=== PATIENT | female | born 1950 | race Caucasian/White ===

== ENCOUNTER 2020-12-17 08:13 | Outpatient (CLI) | payer MEDICARE, SELFPAY ==
--- NOTE | ~2020-12-17 | US_ITS ---
EXAMINATION: US venous doppler LE RT EXAM DATE: 12/17/2020 08:50 INDICATION: chronic venous disease vs pelvic outflow obstruct. TECHNIQUE: Multiple grayscale, color flow and Doppler images of the right lower extremity deep venous system were obtained and reviewed. There is no prior study for comparison. FINDINGS: The right common femoral, femoral and profunda veins demonstrate normal color flow, respira tory variation, augmentation and compressibility. Compressibility, color flow confirmed within the r ight popliteal, posterior tibial, peroneal, and greater saphenous veins. IMPRESSION: 1. No right lower extremity deep venous thrombosis. Reviewed, dictated and finalized at location A.
[2020-12-17 08:26] LABS: Basophils Absolute Auto 0.04 K/mm3 (0.00-0.10); Basophils Percent Auto 0.7 % (0.0-1.0); Eosinophils Percent Auto 1.8 % (1.0-6.0); Hematocrit 39.6 % (35.0-42.0); Hemoglobin 12.7 g/dL (11.7-13.8); Immature Granulocyte Absolute 0.04 K/mm3 (0.00-0.00); Immature Granulocyte Percent A 0.7 % (0.0-0.0); Lymphocytes Absolute Auto 1.18 K/mm3 (1.10-4.50); Lymphocytes Percent Auto 20.7 % (18.0-42.0); Mean Corpuscular HGB Conc 32.1 g/dL (32.0-36.0); Mean Corpuscular Hemoglobin 28.6 pg (27.0-31.0); Mean Corpuscular Volume 89.2 fL (78.0-102.0); Mean Platelet Volume 10.1 fl (9.2-11.8); Monocytes Absolute Auto 0.36 K/mm3 (0.10-0.90); Monocytes Percent Auto 6.3 % (2.0-11.0); Neutrophils Percent Auto 69.8 % (50.0-70.0); Platelet Count Result 246 K/mm3 (150-420); Red Blood Count 4.44 M/mm3 (4.20-5.40); Red Cell Distribution Width 13.5 % (11.6-14.4); White Blood Count 5.7 K/mm3 (4.8-10.8)
[2020-12-17 09:14] LABS: Alanine Aminotransferase 23 U/L (14-59); Albumin Level 3.6 g/dL (3.4-5.0); Alkaline Phosphatase 100 U/L (46-116); Anion Gap 7 mmol/L (8-16); Aspartate Amino Transferase 17 U/L (15-37); Bilirubin,Total 0.4 mg/dL (0.00-1.00); Blood Urea Nitrogen 25 mg/dL (7-18); Calcium 8.7 mg/dL (8.5-10.1); Carbon Dioxide 32 mmol/L (21-32); Chloride 105 mmol/L (98-108); Cholesterol 198 mg/dL (0-200); Estimated Glomerular Filt Rate 36; Glucose 112 mg/dL (70-99); HDL Direct 41 mg/dL (40-60); LDL Cholesterol Calculated 136 mg/dL (<130); Osmolality Calculated 303 mOsm/kg (285-295); Potassium 3.9 mmol/L (3.5-5.1); Sodium 144 mmol/L (136-145); Triglycerides 105 mg/dL (0-150)
[2020-12-18 13:48] LABS: Hemoglobin A1C 5.9 % (<5.7)
== END 2020-12-17 08:14 | disposition home or self-care (01) ==
LOC: CHSIMG 08:15
PROVIDERS: PCP Family Medicine; Visit Provider Nurse Practitioner Family
DX: R60.0 Localized edema (principal); I10 Essential (primary) hypertension
CPT/HCPCS: 36415; 80053; 80061; 83036; 85025; 93971

== ENCOUNTER 2021-01-19 10:42 | Outpatient (CLI) | payer MEDICARE, SELFPAY ==
[2021-01-19 11:20] LABS: Alanine Aminotransferase 13 U/L (14-59); Albumin Level 3.9 g/dL (3.4-5.0); Alkaline Phosphatase 89 U/L (46-116); Anion Gap 12 mmol/L (8-16); Aspartate Amino Transferase 11 U/L (15-37); Bilirubin,Total 0.6 mg/dL (0.00-1.00); Blood Urea Nitrogen 15 mg/dL (7-18); Carbon Dioxide 28 mmol/L (21-32); Chloride 103 mmol/L (98-108); Estimated Glomerular Filt Rate 49; Glucose 105 mg/dL (70-99); Osmolality Calculated 296 mOsm/kg (285-295); Potassium 3.7 mmol/L (3.5-5.1); Sodium 143 mmol/L (136-145); Total Protein 7.6 g/dL (6.4-8.2)
== END 2021-01-19 10:43 | disposition home or self-care (01) ==
LOC: CHSLAB 10:44
PROVIDERS: PCP Family Medicine; Visit Provider Nurse Practitioner Family
DX: R60.0 Localized edema (principal)
CPT/HCPCS: 36415; 80053

== ENCOUNTER 2022-02-11 12:29 | Emergency (ER) | payer MEDICARE, SELFPAY ==
[2022-02-11 12:35] VITALS: BP 182/88; PULSE 71; RESP 16; TEMP 36.3; O2SAT 96
[2022-02-11 12:38] VITALS: BP 157/69; PULSE 65; RESP 19; TEMP 36.9; O2SAT 98
[2022-02-11 13:08] LABS: Basophils Absolute Auto 0.04 K/mm3 (0.00-0.10); Basophils Percent Auto 0.7 % (0.0-1.0); Eosinophils Absolute Auto 0.03 K/mm3 (0.02-0.50); Eosinophils Percent Auto 0.6 % (1.0-6.0); Hemoglobin 13.7 g/dL (11.7-13.8); Immature Granulocyte Absolute 0.02 K/mm3 (0.00-0.00); Immature Granulocyte Percent A 0.4 % (0.0-0.0); Lymphocytes Absolute Auto 1.05 K/mm3 (1.10-4.50); Lymphocytes Percent Auto 19.6 % (18.0-42.0); Mean Corpuscular HGB Conc 32.6 g/dL (32.0-36.0); Mean Corpuscular Hemoglobin 29.5 pg (27.0-31.0); Mean Corpuscular Volume 90.5 fL (78.0-102.0); Mean Platelet Volume 9.8 fl (9.2-11.8); Monocytes Absolute Auto 0.32 K/mm3 (0.10-0.90); Neutrophils Absolute Auto 3.9 K/mm3 (1.7-7.2); Neutrophils Percent Auto 72.7 % (50.0-70.0); Platelet Count Result 273 K/mm3 (150-420); Red Blood Count 4.64 M/mm3 (4.20-5.40); Red Cell Distribution Width 12.6 % (11.6-14.4); White Blood Count 5.4 K/mm3 (4.8-10.8)
[2022-02-11 13:15] VITALS: BP 155/80; PULSE 68; RESP 16; O2SAT 98
--- NOTE | 2022-02-11 13:21 | ED.GENADULT ---
HPI - General Adult General Chief complaint: Anxiety Stated complaint: Anxiety attack History of Present Illness HPI narrative: Ana is a 71F with a PMH of HTN and prediabetes presented to the ED with concerns of an episode of amnesia. She ahs been under a lot of stress lately. She has anxiety at baseline but has been under more stress because her dog is very ill. She went to work this morning but reportedly left and note and went home. She has no recollection of this event and her states that she was speaking hysterically during the episode. She has not ingested any substances, she denies head trauma, and there have been no fevers, chills, N/V+. Her loose stools are at baseline. Related Data Allergies Allergy/AdvReac Type Severity Reaction Status Date / Time No Known Allergies Allergy Verified 02/11/22 12:46 Review of Systems Review of Systems: All systems reviewed & are unremarkable except as noted in HPI and below PMFSH Past Medical History Medical History Bitten by dog, subsequent encounter Bronchitis Colon cancer Uterus cancer Surgical History Surgical History History of colon resection Hx of cholecystectomy Knee joint replacement status Status post complete hysterectomy Family History Family History Mother , mother of old age in her 90s. She did have heart disease. No problems noted. 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[place], [place] Exam Const: General: healthy appearing, no acute distress and alert; No confusion Nutritional Appearance: well nourished Orientation/consciousness: patient oriented x3 Limitations: no limitations HENMT: Head: normal to inspection Ears: external ears normal General nose exam: Normal external nose present Face and sinus: normal facial exam Mouth: Yes Normal oral and palatal mucosa present Eyes: Conjunctivae: conjunctivae normal Pupils: Equal, round and reactive pupils present EOM: EOMs intact bilaterally Neck: Neck: normal visual inspection Chest: Chest palpation & inspection: normal inspection of the chest Resp: Effort & Inspection: normal respiratory effort Auscultation: clear to auscultation bilaterally Cardio: Rate: regular rate Rhythm: regular rhythm Skin: General skin exam: normal color Rashes: no rashes Wounds: no wounds Neuro: General: patient oriented x3 Cranial nerves: Yes Nystagmus not present Extrem: General: normal to inspection Psych: Mental Status: mental status grossly normal Course Course Emergency Course: At the time of reevaluation she had calmed down and remembered more events. As she was otherwise asymptomatic and the events came on after an episode of stress related to her dog being sick it is likely psych in nature. Vital Signs Vital signs: Vital Signs Temperature 97.4 F L 02/11/22 12:35 Pulse Rate 71 02/11/22 12:35 Respiratory Rate 16 02/11/22 12:35 Blood Pressure 182/88 H 02/11/22 12:35 Pulse Oximetry 96 02/11/22 12:35 Oxygen Delivery Room Air 02/11/22 12:35 Temperature 98.4 F 02/11/22 12:38 Pulse Rate 65 02/11/22 12:38 Respiratory Rate 19 02/11/22 12:38 Blood Pressure 157/69 H 02/11/22 12:38 Pulse Oximetry 98 02/11/22 12:38 Oxygen Delivery Room Air 02/11/22 12:38 Medical Decision Making Vital Signs Vital Signs: Vital Signs Temperature 97.4 F L 02/11/22 12:35 Pulse Rate 71 02/11/22 12:35 Respiratory Rate 16 02/11/22 12:35 Blood Pressure 182/88 H 02/11/22 12:35 Pulse Oximetry 96 02/11/22 12:35 Oxygen Delivery Room Air 02/11/22 12:35 Temperature 98.4 F 02/11/22
[2022-02-11 13:24] LABS: Alanine Aminotransferase 18 U/L (14-59); Albumin Level 3.8 g/dL (3.4-5.0); Alkaline Phosphatase 109 U/L (46-116); Anion Gap 10 mmol/L (8-16); Aspartate Amino Transferase 12 U/L (15-37); Bilirubin,Total 0.6 mg/dL (0.00-1.00); Blood Urea Nitrogen 19 mg/dL (7-18); Carbon Dioxide 26 mmol/L (21-32); Chloride 107 mmol/L (98-108); Estimated CRCL calculation 43 ml/min; Estimated Glomerular Filt Rate 52; Ethanol < 3 mg/dL (0-6); Glucose 101 mg/dL (70-99); Osmolality Calculated 298 mOsm/kg (285-295); Potassium 3.8 mmol/L (3.5-5.1); Sodium 143 mmol/L (136-145); Total Protein 7.6 g/dL (6.4-8.2)
[2022-02-11] MEDS: LORazepam INJ (*CRX) 2 MG/ML VIAL 0.5 MG IM (13:30)
[2022-02-11 13:36] LABS: Amphetamine Screen Urine Negative (Negative); Barbiturate Screen Urine Negative (Negative); Benzodiazepines Screen Urine Negative (Negative); Cannabinoid Screen Urine Negative (Negative); Cocaine Screen Urine Negative (Negative); Methadone Screen Urine Negative (Negative); Opiate Screen Urine Negative (Negative); Phencyclidine Screen Urine Negative (Negative)
== END 2022-02-11 13:50 | disposition home or self-care (01) ==
PROVIDERS: Emergency Provider Family Medicine; PCP Nurse Practitioner Family
DX: G45.4 Transient global amnesia (principal); F41.0 Panic disorder [episodic paroxysmal anxiety]; I10 Essential (primary) hypertension; F41.9 Anxiety disorder, unspecified; Z85.038 Personal history of other malignant neoplasm of large intestine; Z85.42 Personal history of malignant neoplasm of other parts of uterus
CPT/HCPCS: 36415; 80053; 80307; 85025; 96372; 99283; J2060

== ENCOUNTER 2022-09-05 01:18 | Emergency (ER) | payer MEDICARE, SELFPAY ==
[2022-09-05] VITALS (20 sets, daily range): BP systolic 118–184; BP diastolic 55–96; PULSE 70–75; RESP 20; TEMP 36.6; O2SAT 87–97
--- NOTE | ~2022-09-05 | CT_ITS ---
CT Abdomen and Pelvis with contrast. History: Abdominal pain. Spiral CT of the abdomen and pelvis was performed after the administration of intravenous contrast. 1 00 cc of Omnipaque 350 was administered intravenously without complication. Dose reduction technique was used on this scan by utilizing automated exposure control and iterative reconstruction technique. The dose-length product (DLP) was 960.96 mGy-cm. COMPARISON: 11/23/2011 Findings: Scans through the lung bases demonstrate 3 mm nodule in the lingula. The liver, spleen, pancreas, adrenals and kidneys are within normal limits. Cholecystectomy clips pre sent. No evidence of aortic aneurysm. No lymphadenopathy is seen. Multiple bowel anastomoses are present. Small ventral fat-containing hernia present. There is a mildl y dilated small bowel loop in the pelvis with fecalization of contents, but no high-grade transition point clearly identified.. Images through the pelvis were performed. Urinary bladder unremarkable. Patient is post hysterectomy. No pelvic mass seen. Small amount of abdominopelvic ascites is seen. Impression: Single mildly dilated small bowel in the pelvis with fecalization of contents, but no high-grade jones sition point. Early or partial small bowel obstruction is a potential consideration. Clinical correla tion required. Small amount of abdominopelvic ascites and mild mesenteric edema, nonspecific. 3 mm lingular pulmonary nodule. According to Fleischner Society criteria, no further follow-up requir ed for a low-risk patient. For a high-risk patient, consider 12 month follow-up CT. Reviewed, dictated and finalized at [facility]. [employer] Impression: Single mildly dilated small bowel in the pelvis with fecalization of contents, but no high-grade transition point. Early or partial small bowel obstruction is a potential consideration. Clinical correlation required. Small amount of abdominopelvic ascites and mild mesenteric edema, nonspecific. 3 mm lingular pulmonary nodule. According to Fleischner Society criteria, no fu rther follow-up required for a low-risk patient. For a high-risk patient, consi dago 12 month follow-up CT.
--- NOTE | 2022-09-05 01:22 | ED.ABDPAIN ---
HPI - Abdominal Pain General Chief Complaint: Abdominal Pain Stated Complaint: Abdominal Pain Time Seen by Provider: 09/05/22 01:22 Source: patient and RN notes reviewed Mode of arrival: ambulatory Limitations: no limitations History of Present Illness MD elicited complaint: abdominal pain Pertinent past history: other ( Bowel obstruction) Onset (ago): hour(s) (4) Pain Consistency: constant Location: LUQ and RUQ Severity: severe Quality: cramping, stabbing and sharp Radiation: none Migration to: no migration Exacerbating factors: nothing Relieving factors: nothing Associated symptoms: nausea and vomiting Related Data Allergies Allergy/AdvReac Type Severity Reaction Status Date / Time No Known Allergies Allergy Verified 09/05/22 10:45 Review of Systems Review of Systems: All systems reviewed & are unremarkable except as noted in HPI and below Constitutional: Constitutional: Denies chills and Denies fever(s) Gastrointestinal: Gastrointestinal: Reports constipation and Denies diarrhea PMFSH Past Medical History Medical History Anxiety and depression Chronic kidney disease, stage 3a Baseline creatinine 1.04 Claustrophobia Colon cancer (~2011) Rectal cancer Essential hypertension History of small bowel obstruction Obstructive sleep apnea Panic attacks Peripheral neuropathy due to chemotherapy Pre-diabetes Uterus cancer (~2006) Treated with radiation therapy that subsequently caused developing colon cancer in 2011 Surgical History Surgical History History of colon resection (~2011) Low anterior resection of the colorectum with ileostomy with subsequent takedown 2012 History of insertion of tunneled central venous catheter (CVC) with port (~2011) Left subclavian History of reversal of ileostomy (~2011) History of total abdominal hysterectomy for endometrial cancer History of tubal ligation (~1972) Hx of cholecystectomy (~1994) Knee joint replacement status (~2014) Complicated by MSSA infection Family History Family History Mother Dementia Age older than 85 years Father Diabetes mellitus Coronary artery disease Social History Social History Social History: Patient is . She had 2 children. 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 Spiritual care concerns: No Exam Const: General: no acute distress, alert and ill appearing acutely Nutritional Appearance: well nourished and obese centrally obese Orientation/consciousness: patient oriented x3 Limitations: no limitations HENMT: Head: normal to inspection Ears: external ears normal Eyes: Conjunctivae: conjunctivae normal Pupils: Equal, round and reactive pupils present EOM: EOMs intact bilaterally Neck: Neck: normal visual inspection Resp: Effort & Inspection: normal respiratory effort Auscultation: clear to auscultation bilaterally Cardio: Rate: regular rate Rhythm: regular rhythm GI: GI Palp: Yes Soft to palpation, Yes Tenderness to palpation present (GI) ( severe upper abdomen), Yes Guarding due to palpation present (GI) ( moderate upper abdomen) and No Rebound tenderness present Auscultation: Hyperactive bowel sounds present Back/Spine/Pelvis: Cervical Spine: cervical ROM normal
[2022-09-05] MEDS: ONDANSETRON INJ 4 MG/2 ML VIAL IV PUSH (01:44)
[2022-09-05 02:15] LABS: Basophils Absolute Auto 0.03 K/mm3 (0.00-0.10); Basophils Percent Auto 0.4 % (0.0-1.0); Eosinophils Absolute Auto 0.04 K/mm3 (0.02-0.50); Eosinophils Percent Auto 0.6 % (1.0-6.0); Hematocrit 40.4 % (35.0-42.0); Hemoglobin 13.1 g/dL (11.7-13.8); Immature Granulocyte Absolute 0.03 K/mm3 (0.00-0.00); Immature Granulocyte Percent A 0.4 % (0.0-0.0); Lymphocytes Absolute Auto 0.63 K/mm3 (1.10-4.50); Lymphocytes Percent Auto 9.1 % (18.0-42.0); Mean Corpuscular HGB Conc 32.4 g/dL (32.0-36.0); Mean Corpuscular Volume 89.4 fL (78.0-102.0); Mean Platelet Volume 10.7 fl (9.2-11.8); Monocytes Absolute Auto 0.27 K/mm3 (0.10-0.90); Monocytes Percent Auto 3.9 % (2.0-11.0); Neutrophils Percent Auto 85.6 % (50.0-70.0); Platelet Count Result 211 K/mm3 (150-420); Red Blood Count 4.52 M/mm3 (4.20-5.40); Red Cell Distribution Width 12.2 % (11.6-14.4)
[2022-09-05 02:36] LABS: Anion Gap 8 mmol/L (8-16); Blood Urea Nitrogen 14 mg/dL (7-18); Carbon Dioxide 28 mmol/L (21-32); Chloride 103 mmol/L (98-108); Potassium 3.4 mmol/L (3.5-5.1); Sodium 139 mmol/L (136-145)
[2022-09-05 02:37] LABS: Alanine Aminotransferase 17 U/L (14-59); Albumin Level 3.5 g/dL (3.4-5.0); Alkaline Phosphatase 90 U/L (46-116); Aspartate Amino Transferase 13 U/L (15-37); Calcium 8.2 mg/dL (8.5-10.1); Estimated CRCL calculation 45 ml/min; Estimated Glomerular Filt Rate 52; Glucose 147 mg/dL (70-99); Lipase 18 U/L (16-77); Osmolality Calculated 291 mOsm/kg (285-295); Total Protein 6.7 g/dL (6.4-8.2)
[2022-09-05 02:43] LABS: Lactic Acid Reflex 1.4 mmol/L (0.4-2.0)
[2022-09-05 03:10] LABS: Add Urine Microscopic? YES; Appearance Urine Clear (Clear); Bilirubin Urine Negative (Negative); Blood Urine Trace-Intact (Negative); Color Urine Light Yellow (Yellow); Glucose Urine UA Negative (Negative); Ketones Urine 3+ (Negative); Leukocyte Esterase Ur Negative LEU/UL (Negative); Nitrate Urine Negative (Negative); Protein Urine Negative (Negative); Specific Grav Ur 1.015 (1.010-1.020); Urobilinogen Urine 0.2 mg/dL (0.2-1.0); pH Urine 6.5 (5.0-8.0)
--- NOTE | 2022-09-05 03:10 | PC.NURSE ---
Pt resting, call gaytan at side, reports pain is much less, able to rest c eyes closed, awaiting CT report.
[2022-09-05 03:16] LABS: Mucus Urine Few /lpf; RBC Urine 0-2 /hpf (0-2); Squamous Epithelial Cell Urine Few /hpf (Few)
--- NOTE | 2022-09-05 04:00 | PC.NURSE ---
Pt awake, reports her pain is much worse again and she feels very nauseated. Call placed to Dr Jimenez for pain medication. Order obtained.
[2022-09-05] MEDS: HYDROmorphone HCL INJ (*CRX) 2 MG/ML VIAL 1 MG IV PUSH (04:13)
--- NOTE | 2022-09-05 04:19 | PC.NURSE ---
Report received, discussed results c pt. and POC to transfer. Pt wanting transfer to [place].
--- NOTE | 2022-09-05 05:17 | PC.NURSE ---
Discussed need for NG tube, pt refuses to have NG put down, states she has had it in past and unable to tolerate, and she reports it gives her anxiety. Pt reports no n/v at this time and refuses insert of NG tube.
[2022-09-05] MEDS: KCL 20 MEQ/SW 100 ML 100 ML 50 MEQ IVPB ×2 (05:33)
[2022-09-05] MEDS: DEXTROSE 5%/0.45% SOD CHL 1,000 ML 150 ML IV CONT (05:40)
--- NOTE | 2022-09-05 05:41 | PC.NURSE ---
Pt resting, IVF infusing as per order, pt has no pain at this time. VSS, room and bed assignment received.
[2022-09-05 05:53] LABS: SARS-CoV-2 Ag Negative (Negative)
--- NOTE | 2022-09-05 05:59 | PC.NURSE ---
Pt resting, no further c/o. Report given to KATY Queen at [facility]. EMS paged for transfer.
--- NOTE | 2022-09-05 06:09 | PC.NURSE ---
[facility] paged for transfer, awaiting EMS.
--- NOTE | 2022-09-05 06:30 | PC.NURSE ---
Report given to [facility] for pt transfer. Pt. loaded to cot s difficulty, remains stable and pain free at this time.
== END 2022-09-05 06:40 | disposition short-term general hospital (02) ==
PROVIDERS: Emergency Provider Emergency Medicine; PCP Family Medicine
DX: K56.699 Other intestinal obstruction unspecified as to partial versus complete obstruction (principal); E87.6 Hypokalemia; I12.9 Hypertensive chronic kidney disease with stage 1 through stage 4 chronic kidney disease, or unspecified chronic kidney disease; N18.31 Chronic kidney disease, stage 3a; Z85.038 Personal history of other malignant neoplasm of large intestine; Z20.822 Contact with and (suspected) exposure to COVID-19
CPT/HCPCS: 36415; 74177; 80053; 81001; 83605; 83690; 85025; 87426; 96365; 96375; 99285; C9803; J0131; J1170; J2405; J3480; Q9967

== ENCOUNTER 2022-09-05 07:13 | Observation (INO) | payer MEDICARE, SELFPAY ==
--- NOTE | ~2022-09-05 | XR_ITS ---
EXAMINATION: XR sm bowel follow through DATE: 09/05/2022 13:43 INDICATION: Small bowel obstruction. TECHNIQUE: Oral contrast was administered, and a time course of radiographs of the abdomen was obtain ed. Fluoroscopy of the small bowel was not performed. Fluoroscopy exposure time was 0 minutes. The to ren number of images was 6. COMPARISON: CT abdomen and pelvis 09/05/2022 FINDINGS: There are surgical clips in the abdomen and pelvis. There are no dilated loops of bowel. Transit time from the stomach to proximal colon was approximately 1 hour. IMPRESSION: 1. Normal bowel gas pattern. Reviewed, dictated and finalized at location A. [employer]
[2022-09-05] MEDS: SODIUM CHLORIDE 0.9% IV 1,000 ML 100 ML IV CONT ×2 (07:53→21:22)
[2022-09-05 08:00] VITALS: BP 114/64; PULSE 63; RESP 16; TEMP 36.5; O2SAT 96
--- NOTE | 2022-09-05 10:18 | PM.CNGS ---
Assessment and Plan Assessment and plan (1) Small bowel obstruction: Code(s): K56.609 - Unspecified intestinal obstruction, unspecified as to partial versus complete obstruction Status: Acute Assessment and Plan: CT scan from [place] reviewed and discussed with the patient in detail. There is evidence of early versus partial small bowel obstruction. She does have a history of multiple abdominal surgeries and at least 3-4 previous small bowel obstructions. This is likely related to intraabdominal adhesions. She is already clinically improving and her abdominal exam is benign. She has refused an NG tube, but is currently not having any nausea or vomiting. Will get a water soluble small bowel follow through to further evaluate the small bowel obstruction. While awaiting SBFT, will keep her NPO with IV fluids and IV analgesics as needed. (2) HTN (hypertension): Code(s): I10 - Essential (primary) hypertension Status: Acute (3) Panic attacks: Code(s): F41.0 - Panic disorder [episodic paroxysmal anxiety] Status: Acute Assessment and Plan: Takes PRN Ativan at home. Has a hx of panic attacks when admitted due to NG tube placement and is refusing NG. Will add PRN Ativan IV while NPO. (4) Chronic kidney disease, stage 3a: Code(s): N18.31 - Chronic kidney disease, stage 3a Status: Acute (5) History of small bowel obstruction: Code(s): Z87.19 - Personal history of other diseases of the digestive system Status: Acute Assessment and Plan: Multiple previous small bowel obstructions that were treated successfully with conservative management. Plan I have discussed the patient's case and plan of care with Dr. Martinez. Thank you for allowing us to see the patient in consultation and we will continue to follow along with you. History of Present Illness Consult details Consult date: 09/05/22 Reason for consult: other (Small bowel obstruction) Requesting physician: Ivonne Randle DO Narrative: This is a 71-year-old woman who was directed admitted from [facility] this morning for a small bowel obstruction. She has had multiple previous abdominal surgeries and a history of small bowel obstructions. She reports a sudden onset of abdominal pain yesterday afternoon. Her pain was across her entire abdomen. The pain felt similar to previous small bowel obstructions. She had associated nausea and one small episode of vomiting. Her pain progressively worsened throughout the night and ultimately brought her into [place] ER for evaluation. CT scan suggested early versus partial small bowel obstruction with a small amount of abdominopelvic ascites and mild mesenteric edema. Incidentally noted was a 3 mm lingular pulmonary nodule. She was directly admitted to [facility] and our service was consulted for the small bowel obstruction. She reportedly has had 3-4 previous small bowel obstructions treated conservatively at [facility]. Her last admission was in 2017 and reportedly she has not had any issues since that hospitalization. She has a remote history of a laparoscopic cholecystectomy. She also had a total abdominal hysterectomy with bilateral salpingo-oophorectomy many years ago for endometrial cancer. She was treated with radiation therapy. She was then found to have colon cancer in 2011 and was treated with chemotherapy and had a colon resection with an ileostomy and eventual subsequent takedown of the ileostomy. She is now seen on the medical floor. She reports that her abdominal pain improved in the ER after receiving multiple analgesics. This morning, she denies any abdominal pain or nausea. No more vomiting since admission. She is not passing flatus. Her last BM was yesterday around 5:00 pm and normal for her. Denies any recent constipation or diarrhea. She typically takes a stool softener and dulcolax daily to keep her bowels moving regularly. She also reports having a his
[2022-09-05 10:29] VITALS: BMI 35.2
--- NOTE | 2022-09-05 10:34 | ADMGEN ---
This patient, Ana Rico, was admitted to [facility] Surg Room 303-01. Patient/family oriented to hospital policies and general routines including ID bracelet, bed and alarms, visiting hours, pain management, procedures, bathroom and other care routines, personal items, smoking policy, room service/diet, and visiting hours. Information on how to activate the Rapid Response Team has been discussed. Patient/Family are encouraged to report perceived risks to care and to ask questions if they do not understand what they are told or what they should do. Direct ADMIT
[2022-09-05 11:44] LABS: Glucose Point of Care 113 mg/dl (65-105)
[2022-09-05 14:00] VITALS: BP 162/77; PULSE 71; RESP 16; TEMP 36.9; O2SAT 99
[2022-09-05] MEDS: ONDANSETRON INJ 4 MG/2 ML VIAL IV PUSH (14:13)
[2022-09-05 14:18] VITALS: O2SAT 99
--- NOTE | 2022-09-05 15:36 | PM.IMHP ---
H&P: HPI History of Present Illness Date/Time: 09/05/22 15:36 Chief Complaint: Abdominal pain and vomiting Narrative: Pt admitted for severe RUQ and LUQ pains and vomiting Pt was having crampy pains ongoing for 4 hours yesterday evening went to [facility] and was transferred here. Pt has history of SBO transferred here for higher level of care from [facility] Pt has history of endometrial and colon cancers, pt received chemo and radiation therapies in the past and has had hysterectomy and colon resection CT here shows - CT scan suggested early versus partial small bowel obstruction with a small amount of abdominopelvic ascites and mild mesenteric edema. Incidentally noted was a 3 mm lingular pulmonary nodule Pt has had SBO three times before treated conservatively in [facility]. Pt seen by surgery team Keep npo with iv fluids and pain medications hold home medications today Refusing NG insertion Pt would like to be DNR Review of Systems Review of Systems: Abdominal pains and nausea/ vomiting PMFSH Past Medical History Medical History Anxiety and depression Chronic kidney disease, stage 3a Baseline creatinine 1.04 Claustrophobia Colon cancer (~2011) Rectal cancer Essential hypertension History of small bowel obstruction Obstructive sleep apnea Panic attacks Peripheral neuropathy due to chemotherapy Pre-diabetes Uterus cancer (~2006) Treated with radiation therapy that subsequently caused developing colon cancer in 2011 Surgical History Surgical History History of colon resection (~2011) Low anterior resection of the colorectum with ileostomy with subsequent takedown 2012 History of insertion of tunneled central venous catheter (CVC) with port (~2011) Left subclavian History of reversal of ileostomy (~2011) History of total abdominal hysterectomy for endometrial cancer History of tubal ligation (~1972) Hx of cholecystectomy (~1994) Knee joint replacement status (~2014) Complicated by MSSA infection Family History Family History Mother Dementia Age older than 85 years Father Diabetes mellitus Coronary artery disease Social History Social History Social History: Patient is . She had 2 children. 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 Spiritual care concerns: No Meds Home Medications and Allergies Home Medications Medication Instructions Recorded Confirmed Type paroxetine HCl 20 mg tablet See Rx Instructions .Route 01/18/22 09/05/22 Rx .COMPLEX #90 tabs lorazepam 0.5 mg tablet (Ativan) 0.5 mg PO BID PRN agitation #5 tabs 02/11/22 09/05/22 Rx potassium chloride 10 mEq See Rx Instructions .Route 03/21/22 09/05/22 Rx tablet,extended release(part/cryst) .COMPLEX #180 tabs lisinopril 20 mg tablet 20 mg PO DAILY #90 tabs 05/18/22 09/05/22 Rx furosemide 40 mg tablet See Rx Instructions .Route 06/13/22 09/05/22 Rx .COMPLEX #90 tabs Allergies Allergy/AdvReac Type Severity Reaction Status Date / Time No Known Allergies Allergy Verified 09/05/22 10:45 Vital Signs Vital Signs - 24 hr 09/05/22 08:00 09/05/22 14:00 09/05/22 14:18 Temperature 36.5 C 36.9 C Pulse Rate 63 71 Respiratory Rate 16 16 Bl
[2022-09-05] MEDS: hydrALAZINE HCL 20 MG/ML VIAL 10 MG IV PUSH (16:11)
[2022-09-05 16:42] VITALS: BP 160/80
--- NOTE | 2022-09-05 17:49 | PC.NURSE ---
Told Dr. Galeano at 1750 that pt is now on a clear liquid diet and was started at dinner. Pt is tolerating clear liquid diet order that surgery put in. Told as well that I clarified home medications.
[2022-09-05 18:11] LABS: Glucose Point of Care 121 mg/dl (65-105)
[2022-09-05 21:33] VITALS: BP 146/74; PULSE 77; RESP 18; TEMP 36.2; O2SAT 97
[2022-09-06 00:11] LABS: Glucose Point of Care 115 mg/dl (65-105)
[2022-09-06 05:46] LABS: Glucose Point of Care 99 mg/dl (65-105)
[2022-09-06 05:53] VITALS: BP 140/61; PULSE 65; RESP 16; TEMP 36.2; O2SAT 96
[2022-09-06 08:41] LABS: Anion Gap 0 mmol/L (8-16); Blood Urea Nitrogen 8 mg/dL (7-17); Calcium 7.7 mg/dL (8.4-10.2); Carbon Dioxide 28 mmol/L (22-30); Chloride 108 mmol/L (98-107); Estimated CRCL calculation 57 ml/min; Estimated Glomerular Filt Rate > 60; Glucose 93 mg/dL (65-110); Potassium 3.4 mmol/L (3.4-5.0); Sodium 136 mmol/L (137-145)
--- NOTE | 2022-09-06 10:16 | PM.DS ---
DS: Admitting Diagnosis Discharge Date 09/06/2022 Admitting Diagnosis Abdominal pain and vomiting DS: Discharge Diagnosis Discharge Diagnosis (1) History of small bowel obstruction: Code(s): Z87.19 - Personal history of other diseases of the digestive system Status: Acute Assessment and Plan: History of recurrent SBO (2) Chronic kidney disease, stage 3a: Code(s): N18.31 - Chronic kidney disease, stage 3a Status: Acute Assessment and Plan: Creat is 0.8 with iv fluids (3) Small bowel obstruction: Code(s): K56.609 - Unspecified intestinal obstruction, unspecified as to partial versus complete obstruction Status: Inactive Assessment and Plan: Conservative management treated with npo iv fluids and iv morphine Pt seen by surgery team ok to discharge today , pt has opened her bowels and is tolerating a regular diet (4) Anxiety and depression: Code(s): F41.9 - Anxiety disorder, unspecified; F32.A - Depression, unspecified Status: Acute Assessment and Plan: Continue oral medications (5) HTN (hypertension): Code(s): I10 - Essential (primary) hypertension Status: Acute Assessment and Plan: Continue oral medications Plan Pt is a prediabetic Advised diet and excercise DS: Summary Hospital Course Hospital Course: Pt admitted for severe RUQ and LUQ pains and vomiting Pt was having crampy pains ongoing for 4 hours yesterday evening went to [facility] and was transferred here. Pt has history of SBO transferred here for higher level of care from [facility] Pt has history of endometrial and colon cancers, pt received chemo and radiation therapies in the past and has had hysterectomy and colon resection CT here shows - CT scan suggested early versus partial small bowel obstruction with a small amount of abdominopelvic ascites and mild mesenteric edema. Incidentally noted was a 3 mm lingular pulmonary nodule Pt has had SBO three times before treated conservatively in [facility]. Pt seen by surgery team Keep npo with iv fluids and pain medications Pt doing better today tejada bowel movement tolerating diet Ok for DC. Time Spent with Patient Time attestation: Total time spent providing and/or coordinating discharge services: Exam Const: General: comfortable, no acute distress, awake and obese Nutritional Appearance: obese Orientation/consciousness: patient oriented x3 HENMT: Head: normocephalic and atraumatic Ears: hearing grossly normal bilaterally Mouth: Yes moist mucous membranes Eyes: General: appearance normal, both eyes and all related structures Pupils: Equal, round and reactive pupils present EOM: EOMs intact bilaterally Neck: Neck: normal visual inspection and full ROM Resp: Effort & Inspection: no respiratory distress Auscultation: clear to auscultation bilaterally Cardio: Rate: regular rate Rhythm: regular rhythm Heart sounds: S1 normal heart sound present and S2 normal heart sound present Peripheral pulses: Peripheral pulses 2+ throughout GI: Inspection: scar (ileostomy scar) and other (mildly distended) Auscultation: Hypoactive bowel sounds present Rectal Exam: deferred Skin: General skin exam: normal color Rashes: no rashes Neuro: General: patient oriented x3, moves all extremities and no focal motor deficits Cranial nerves: Yes Equal, round and reactive pupils present Speech: normal speech Motor exam (neuro): 5/5 motor strength present throughout Extrem: General: no calf tenderness and edema (RLE mild trace edema compared to left, nonpitting, chronic per pt) Psych: Mental Status: mental status grossly normal Affect: normal affect Attitude: cooperative Insight: Good insight present (Psych) Judgement: Good judgement present (Psych) DS: Data Data Completed and Pending Labs on day of discharge: Labs from last 24 hours 09/06/22 09/06/22 09/06/22 08:23 05:37 00:06 Sodium 136 L Pot
--- NOTE | 2022-09-06 10:55 | PM.PNGS ---
Progress Note: A&P Assessment and Plan (1) Small bowel obstruction: Code(s): K56.609 - Unspecified intestinal obstruction, unspecified as to partial versus complete obstruction Status: Inactive Assessment and Plan: Resolved. SBFT showed normal transit. She is moving her bowels and tolerating a regular diet. Okay from a surgical standpoint to discharge the patient today. Follow-up only as needed. Plan I have discussed the patient's case and plan of care with Dr. Martinez. Subjective Subjective Date/Time Seen: 09/06/22 10:55 Patient reports: no new complaints, feels better, tolerating a regular diet, flatus and bowel movement Interval history: patient doing well today. Denies abdominal pain, nausea, vomiting, or bloating. Multiple bowel movements since small bowel follow through yesterday. Review of Systems Review of Systems: All systems reviewed & are unremarkable except as noted in HPI and below Exam Const: General: comfortable and no acute distress Orientation/consciousness: patient oriented x3 GI: Inspection: non-distended GI Palp: Yes Soft to palpation, No Tenderness to palpation present (GI), No Guarding due to palpation present (GI) and No Rebound tenderness present Percussion: Yes normal to percussion Auscultation: normal bowel sounds Objective Data Vital Signs Vital Signs: Vital Signs - 24 hr 09/05/22 14:00 09/05/22 14:18 09/05/22 16:42 Temperature 98.5 F Pulse Rate 71 Respiratory Rate 16 Blood Pressure 162/77 H 160/80 H Pulse Oximetry 99 99 Oxygen Delivery Room Air 09/05/22 21:33 09/06/22 05:53 Temperature 97.2 F L 97.2 F L Pulse Rate 77 65 Respiratory Rate 18 16 Blood Pressure 146/74 H 140/61 Pulse Oximetry 97 96 Oxygen Delivery Intake/Output Intake/Output: Intake & Output 09/03/22 09/04/22 09/05/22 09/06/22 23:59 23:59 23:59 23:59 Intake Total 1660 250 Output Total 1000 Balance 660 250 Meds/Results Medications: Active Medications Generic Name Dose Route Start Last Admin Trade Name Freq PRN Reason Stop Dose Admin Dextrose 12.5 gm 09/05/22 06:31 Dextrose 50% 25 Gm/50 Ml Syringe IV PUSH PRN PRN Hypoglycemia Protocol Enoxaparin Sodium 40 mg 09/06/22 09:00 09/06/22 09:01 Enoxaparin 40 Mg/0.4 Ml Syringe SUB-Q Not Given DAILY [facility] Glucagon 1 mg 09/05/22 06:31 Glucagon For Inj 1 Mg Vial IM PRN PRN Hypoglycemia Protocol Glucose 15 gm 09/05/22 06:31 Glucose Oral Gel 15 Gm Of Glucse In 37.5 Gm Tube PO PRN PRN Hypoglycemia Protocol Hydralazine HCl 10 mg 09/05/22 15:52 09/05/22 16:11 Hydralazine Hcl 20 Mg/Ml Vial IV PUSH 10 mg Q8H PRN Administration Blood Pressure - High sbp over Dextrose 1,000 mls @ 100 mls/hr 09/05/22 06:31 Dextrose 5% 1,000 Ml IVPB PRN PRN Hypoglycemia Protocol Sodium Chloride 1,000 mls @ 70 mls/hr 09/05/22 06:35 09/05/22 21:22 Normal Saline Iv IV CONT 100 mls/hr .[id number] EMILY Administration Insulin Aspart 2 - 5 units 09/05/22 12:00 09/06/22 05:51 Insulin Aspart (*Bkc) 100 Units/Ml SUB-Q Not Given Q6HR [facility] Protocol Lorazepam 0.5 mg 09/05/22 10:22 Lorazepam Inj (*Crx) 2 Mg/Ml Vial IV PUSH Q6H PRN Anxiety Morphine Sulfate 2 mg 09/05/22 10:22 Morphine Sulfate (*Crx) 2 Mg/Ml Inj IV PUSH Q2H PRN Pain Rated 7-10 Ondansetron HCl 4 mg 09/05/22 06:31 09/05/22 14:13 Ondansetron Inj 4 Mg/2 Ml Vial IV PUSH 4 mg Q6H PRN Administration Nausea And Vomiting Radiology Results: ITS Impressions Small Bowel X-Ray 09/05/22 13:51 IMPRESSION: 1. Normal bowel gas pattern. Labs Labs: Laboratory Results - last 24 hr 09/05/22 09/05/22 09/06/22 11:38 18:07 00:06 Sodium Potassium Chloride Carbon Dioxide Anion Gap BUN Creatinine Estim Creat Clear Calc Estimated GFR Glucose POC Capillary Glucose
== END 2022-09-06 11:10 | disposition home or self-care (01) ==
PROVIDERS: Internal Medicine; Admitting Provider Family Medicine; PCP Family Medicine; Visit Provider Family Medicine
DX: K56.609 Unspecified intestinal obstruction, unspecified as to partial versus complete obstruction (principal); Z87.19 Personal history of other diseases of the digestive system; I12.9 Hypertensive chronic kidney disease with stage 1 through stage 4 chronic kidney disease, or unspecified chronic kidney disease; N18.31 Chronic kidney disease, stage 3a; F41.0 Panic disorder [episodic paroxysmal anxiety]; F32.A Depression, unspecified; F40.240 Claustrophobia; G47.33 Obstructive sleep apnea (adult) (pediatric); Z90.49 Acquired absence of other specified parts of digestive tract; T45.1X5A Adverse effect of antineoplastic and immunosuppressive drugs, initial encounter; Z92.3 Personal history of irradiation; G62.0 Drug-induced polyneuropathy; Z85.038 Personal history of other malignant neoplasm of large intestine; Z85.42 Personal history of malignant neoplasm of other parts of uterus; Z79.899 Other long term (current) drug therapy
CPT/HCPCS: 36415; 74250; 80048; 82948; 96361; 96365; 96375; G0378; J0131; J0360; J2405; J7030

== ENCOUNTER 2022-11-29 05:42 | Emergency (ER) | payer MEDICARE, SELFPAY ==
--- NOTE | ~2022-11-29 | CT_ITS ---
Non-contrast CT scan of the Abdomen and Pelvis Clinical indication: Obstruction Technique: 2.5 mm axial scans were obtained through the abdomen and pelvis without intravenous or or al contrast. Dose reduction technique was used on this scan by utilizing automated exposure control a nd iterative reconstruction technique. The dose-length product (DLP) was 1121.21 mGy-cm. COMPARISON: 09/05/2022 Findings: Images through the lung bases reveal stable 3 mm lingular pulmonary nodule. There is no evidence of renal or ureteral calculi. The kidneys and the ureters are nondilated. The liver, spleen, pancreas, and adrenals appear normal. Cholecystectomy clips are present. There is no aortic aneurysm. There is no evidence of bowel obstruction. There is wall thickening of several small bowel loops in t he anterior mid abdomen with adjacent inflammatory changes in the mesentery. Small ventral hernia is present, containing fat and small amount of fluid/ascites. Several bowel anastomoses are stable from prior exam. Images through the pelvis were performed. Urinary bladder unremarkable. Patient is post hysterectomy. No adnexal mass evident. Small amount of abdominopelvic ascites present. Impression: Findings consistent with infectious/inflammatory small bowel enteritis, as detailed above. No definit e bowel obstruction. Small amount of abdominopelvic ascites. Small ventral hernia containing fat and small amount of fluid/ascites, unchanged. Stable 3 mm lingular pulmonary nodule. Reviewed, dictated and finalized at location . Impression: Findings consistent with infectious/inflammatory small bowel enteritis, as deta iled above. No definite bowel obstruction. Small amount of abdominopelvic ascites. Small ventral hernia containing fat and small amount of fluid/ascites, unchange d. Stable 3 mm lingular pulmonary nodule.
[2022-11-29 05:50] VITALS: BP 153/92; PULSE 100; RESP 16; TEMP 37.1; O2SAT 97
--- NOTE | 2022-11-29 05:59 | ED.ABDPAIN ---
HPI - Abdominal Pain General Chief Complaint: Abdominal Pain Stated Complaint: stomach pain History of Present Illness HPI narrative: This is a 71-year-old female with past history of rectal cancer and reported multiple episodes of bowel obstruction, who presents emergency department complaining of severe abdominal pain and nausea consistent with bowel obstruction. She states her pain began at approximately 2:00 this morning, is rated 8/10 and present throughout the abdomen. She states her last bowel movement and the last time she passed gas was at approximately 3:00 this morning. She denies bleeding from any source and is beginning to feel nauseous. Related Data Home Medications Medication Instructions Recorded Confirmed hydrochlorothiazide 12.5 mg capsule 12.5 mg PO DAILY 11/29/22 11/29/22 Allergies Allergy/AdvReac Type Severity Reaction Status Date / Time No Known Allergies Allergy Verified 09/05/22 10:45 Review of Systems Review of Systems: CONSTITUTIONAL: Denies fever, chills, or sweats. CARDIOVASCULAR: Chronic right leg edema denies chest pain, palpitations, RESPIRATORY: Denies cough or dyspnea. GASTROINTESTINAL: Abdominal pain and nausea denies vomiting, or diarrhea. GENITOURINARY: Denies dysuria or hematuria. SKIN: Denies rash or itching. MUSCULOSKELETAL: Denies back pain, joint pain, or myalgia. NEUROLOGIC: Denies headache, numbness, dizziness, or weakness. PSYCHIATRIC: Denies anxiety or depression. [facility] Past Medical History Medical History Anxiety and depression Chronic kidney disease, stage 3a Baseline creatinine 1.04 Claustrophobia Colon cancer (~2011) Rectal cancer Essential hypertension History of small bowel obstruction Obstructive sleep apnea Panic attacks Peripheral neuropathy due to chemotherapy Pre-diabetes Uterus cancer (~2006) Treated with radiation therapy that subsequently caused developing colon cancer in 2011 Surgical History Surgical History History of colon resection (~2011) Low anterior resection of the colorectum with ileostomy with subsequent takedown 2012 History of insertion of tunneled central venous catheter (CVC) with port (~2011) Left subclavian History of reversal of ileostomy (~2011) History of total abdominal hysterectomy for endometrial cancer History of tubal ligation (~1972) Hx of cholecystectomy (~1994) Knee joint replacement status (~2014) Complicated by MSSA infection Family History Family History Mother Dementia Age older than 85 years Father Diabetes mellitus Coronary artery disease Social History Social History Social History: Patient is . She had 2 children. 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 Spiritual care concerns: No Exam Narrative: GENERAL: Well-developed, well-nourished, in mild distress due to pain. HEAD: Normocephalic, atraumatic. EYES: PERRLA and EOMI. ENT: Nares clear, no rhinorrhea or epistaxis. Mucous membranes moist. Oropharynx without tonsillar hypertrophy exudate or other lesions. Upper and lower dentures in place CHEST: Clear to auscultation. No respiratory distress. No wheezes rales or rhonchi HEART: Regular rate and rhythm. No murmur heard. Normal p
[2022-11-29] MEDS: fentaNYL CITRATE INJ (*CRX) 100 MCG/2 ML VIAL 50 MCG IV PUSH (06:05)
[2022-11-29] MEDS: PROCHLORPERAZINE EDISYLATE 10 MG/2 ML VIAL IV PUSH (06:06)
[2022-11-29] MEDS: SODIUM CHLORIDE 0.9% IV 1,000 ML 999 ML IV CONT (06:07)
[2022-11-29 06:10] VITALS: BP 160/90; PULSE 90; RESP 20; O2SAT 95
[2022-11-29 06:31] LABS: Basophils Absolute Auto 0.05 K/mm3 (0.00-0.10); Basophils Percent Auto 0.5 % (0.0-1.0); Eosinophils Absolute Auto 0.04 K/mm3 (0.02-0.50); Eosinophils Percent Auto 0.4 % (1.0-6.0); Hematocrit 45.3 % (35.0-42.0); Hemoglobin 15.1 g/dL (11.7-13.8); Immature Granulocyte Absolute 0.04 K/mm3 (0.00-0.00); Immature Granulocyte Percent A 0.4 % (0.0-0.0); Lymphocytes Percent Auto 12.9 % (18.0-42.0); Mean Corpuscular HGB Conc 33.3 g/dL (32.0-36.0); Mean Corpuscular Volume 89.9 fL (78.0-102.0); Mean Platelet Volume 9.8 fl (9.2-11.8); Monocytes Percent Auto 5.4 % (2.0-11.0); Neutrophils Absolute Auto 7.5 K/mm3 (1.7-7.2); Neutrophils Percent Auto 80.4 % (50.0-70.0); Platelet Count Result 302 K/mm3 (150-420); Red Blood Count 5.04 M/mm3 (4.20-5.40); Red Cell Distribution Width 12.9 % (11.6-14.4); White Blood Count 9.3 K/mm3 (4.8-10.8)
[2022-11-29 06:44] LABS: Prothrombin Time 10.5 Seconds (9.50-12.10)
[2022-11-29 06:49] LABS: Lactic Acid Reflex 1.1 mmol/L (0.4-2.0)
[2022-11-29 06:56] LABS: Alanine Aminotransferase 27 U/L (14-59); Albumin Level 3.3 g/dL (3.4-5.0); Alkaline Phosphatase 100 U/L (46-116); Anion Gap 8 mmol/L (8-16); Aspartate Amino Transferase 28 U/L (15-37); Bilirubin,Total 0.9 mg/dL (0.00-1.00); Blood Urea Nitrogen 19 mg/dL (7-18); Calcium 8.3 mg/dL (8.5-10.1); Carbon Dioxide 28 mmol/L (21-32); Chloride 107 mmol/L (98-108); Estimated Glomerular Filt Rate 49; Glucose 162 mg/dL (70-99); Lipase 17 U/L (16-77); Osmolality Calculated 302 mOsm/kg (285-295); Potassium 3.9 mmol/L (3.5-5.1); Sodium 143 mmol/L (136-145); Total Protein 7.2 g/dL (6.4-8.2); Troponin I 8.2 ng/L (0.00-60.4)
[2022-11-29 07:15] VITALS: BP 134/64; PULSE 72; RESP 18; TEMP 36.1; O2SAT 98
--- NOTE | 2023-01-20 14:02 | PC.NURSE ---
IVF COMPLETED INFUSING AT 0710 ON 11/29/22. TOTAL 1000ML INFUSED.
--- NOTE | 2023-02-08 20:43 | PC.NURSE ---
Zack Tiwari stopped IV fluids at 0715
== END 2022-11-29 07:15 | disposition home or self-care (01) ==
PROVIDERS: Emergency Provider Preventive Medicine Aerospace Medicine; PCP Family Medicine
DX: K52.9 Noninfective gastroenteritis and colitis, unspecified (principal); R10.13 Epigastric pain; I10 Essential (primary) hypertension; Z85.42 Personal history of malignant neoplasm of other parts of uterus; Z85.038 Personal history of other malignant neoplasm of large intestine
CPT/HCPCS: 36415; 74176; 80053; 83605; 83690; 84484; 85025; 85610; 96361; 96374; 96375; 99284; J0780; J3010; J7030

== ENCOUNTER 2023-02-08 10:12 | Outpatient (CLI) | payer MEDICARE, SELFPAY ==
[2023-02-08 10:25] LABS: Basophils Absolute Auto 0.03 K/mm3 (0.00-0.10); Basophils Percent Auto 0.7 % (0.0-1.0); Eosinophils Absolute Auto 0.08 K/mm3 (0.02-0.50); Eosinophils Percent Auto 1.9 % (1.0-6.0); Hematocrit 40.6 % (35.0-42.0); Hemoglobin 13.4 g/dL (11.7-13.8); Immature Granulocyte Absolute 0.02 K/mm3 (0.00-0.00); Immature Granulocyte Percent A 0.5 % (0.0-0.0); Lymphocytes Absolute Auto 1.06 K/mm3 (1.10-4.50); Lymphocytes Percent Auto 25.1 % (18.0-42.0); Mean Corpuscular Hemoglobin 29.6 pg (27.0-31.0); Mean Corpuscular Volume 89.6 fL (78.0-102.0); Mean Platelet Volume 9.8 fl (9.2-11.8); Monocytes Percent Auto 7.1 % (2.0-11.0); Neutrophils Absolute Auto 2.7 K/mm3 (1.7-7.2); Neutrophils Percent Auto 64.7 % (50.0-70.0); Platelet Count Result 264 K/mm3 (150-420); Red Blood Count 4.53 M/mm3 (4.20-5.40); Red Cell Distribution Width 12.8 % (11.6-14.4); White Blood Count 4.2 K/mm3 (4.8-10.8)
[2023-02-08 10:47] LABS: Hemoglobin A1C 5.6 % (<5.7)
[2023-02-08 11:13] LABS: Alanine Aminotransferase 17 U/L (14-59); Albumin Level 3.6 g/dL (3.4-5.0); Alkaline Phosphatase 105 U/L (46-116); Anion Gap 11 mmol/L (8-16); Aspartate Amino Transferase 12 U/L (15-37); Bilirubin,Total 0.7 mg/dL (0.00-1.00); Blood Urea Nitrogen 15 mg/dL (7-18); Calcium 8.5 mg/dL (8.5-10.1); Carbon Dioxide 28 mmol/L (21-32); Chloride 106 mmol/L (98-108); Cholesterol 203 mg/dL (0-200); Estimated Glomerular Filt Rate > 60; Glucose 106 mg/dL (70-99); HDL Direct 51 mg/dL (40-60); LDL Cholesterol Calculated 136 mg/dL (<130); Osmolality Calculated 300 mOsm/kg (285-295); Sodium 145 mmol/L (136-145); Total Protein 6.8 g/dL (6.4-8.2); Triglycerides 80 mg/dL (0-150)
[2023-02-08 11:14] LABS: Thyroid Stimulating Hormone Reflex 1.64 u/IU/mL (0.36-3.74)
== END 2023-02-08 10:13 | disposition home or self-care (01) ==
PROVIDERS: PCP Family Medicine; Visit Provider Family Medicine
DX: R73.09 Other abnormal glucose (principal); E11.9 Type 2 diabetes mellitus without complications; I10 Essential (primary) hypertension
CPT/HCPCS: 36415; 80053; 80061; 83036; 84443; 85025

== ENCOUNTER 2023-05-23 02:32 | Emergency (ER) | payer MEDICARE, SELFPAY ==
[2023-05-23] VITALS (12 sets, daily range): BP systolic 120–179; BP diastolic 64–113; PULSE 44–88; RESP 12–18; TEMP 36.8–37; O2SAT 87–98
--- NOTE | ~2023-05-23 | CT_ITS ---
Non-contrast CT scan of the Abdomen and Pelvis Clinical indication: Abdominal pain, history of small bowel obstruction Technique: 2.5 mm axial scans were obtained through the abdomen and pelvis without intravenous or or al contrast. Dose reduction technique was used on this scan by utilizing automated exposure control a nd iterative reconstruction technique. The dose-length product (DLP) was 1167.31 mGy-cm. COMPARISON: 11/29/2022 Findings: Images through the lung bases reveal stable 3 mm lingular pulmonary nodule. The liver, spleen, pancreas, kidneys, and adrenals appear normal. Cholecystectomy clips are present. There is no aortic aneurysm. Several mildly distended small bowel loops are present, which could reflect early or partial small amanda wel obstruction, although no transition point is clearly delineated. Bowel anastomoses are present. V entral fat-containing hernia is present (axial image 60). Images through the pelvis were performed. There is trace ascites. Urinary bladder unremarkable. Patie nt is post hysterectomy. No adnexal mass seen. Impression: Several mildly distended small bowel loops, in the right mid abdomen. Correlate for early or partial small bowel obstruction. Trace ascites. Reviewed, dictated and finalized at location . Impression: Several mildly distended small bowel loops, in the right mid abdomen. Correlate for early or partial small bowel obstruction. Trace ascites.
--- NOTE | ~2023-05-23 | XR_ITS ---
Supine portable view of the abdomen Clinical history: NG tube placement Findings: NG tube is in satisfactory position. Bowel gas pattern is nonspecific. No evidence for obst ruction or free air. No abnormal mass lesion or calcification is seen. Osseous structures are intact. Impression: NG tube in satisfactory position. Reviewed, dictated and finalized at location . Impression: NG tube in satisfactory position.
--- NOTE | 2023-05-23 03:00 | ED.GENADULT ---
HPI - General Adult General Chief complaint: Abdominal Pain Stated complaint: abd pain Time Seen by Provider: 05/23/23 02:45 History of Present Illness HPI narrative: The patient is a 72-year-old woman with history of hypertension, chronic kidney disease, obstructive sleep apnea, uterine cancer, colon cancer, who has had multiple abdominal operations including low anterior resection with ileostomy with subsequent ileostomy takedown, and abdominal hysterectomy as well as a tubal ligation and cholecystectomy. She has had multiple small-bowel obstructions in the past, Most recently when she was seen here on 09/05/2022. At that time, she was transferred to [facility] was able to be discharged the next day, 09/06/2022. The patient has had abdominal pain and multiple episodes of emesis since 10:00 p.m., 05/22/2023. She did have a bowel movement yesterday, 05/22/2023, but is small per her report. She has not passed flatus since the evening. No fevers or chills. No cough rhinorrhea or nasal congestion. No urinary symptoms. No abdominal distension compared to baseline. The pain is generalized and diffuse. She has active emesis in the emergency room. Related Data Allergies Allergy/AdvReac Type Severity Reaction Status Date / Time No Known Allergies Allergy Verified 02/08/23 08:50 Review of Systems Review of Systems: All systems reviewed & are unremarkable except as noted in HPI and below Constitutional: Constitutional: Denies chills, Denies excessive sweating, Denies fatigue, Denies fever(s) and Denies headache(s) Eyes: Eyes: Denies change in vision and Denies photophobia ENT: Denies dysphagia, Denies dizziness, Denies headache(s), Denies lip swelling, Denies nasal congestion, Denies sore throat and Denies tongue swelling Cardiovascular: Cardiovascular: Denies chest pain, Denies syncope, Denies rapid heart rate and Denies dyspnea Respiratory: Respiratory: Denies cough, Denies dyspnea and Denies wheezing Gastrointestinal: Gastrointestinal: Reports abdominal pain, Denies bloating, Denies constipation, Denies dysphagia, Denies diarrhea, Reports nausea and Reports vomiting Genitourinary: Genitourinary: Denies hematuria, Denies urinary frequency, Denies dysuria and Denies urinary urgency Musculoskeletal: Musculoskeletal: Denies back pain, Denies myalgias, Denies arthralgias, Denies joint swelling and Denies numbness Integumentary/Breasts: Skin/Breast: Denies pruritus, Denies erythema and Denies rash Neurologic: Denies confusion, Denies dizziness, Denies syncope, Denies headache(s), Denies focal weakness, Denies numbness and Denies weakness Psychiatric: Psychiatric: Denies anxiety and Denies confusion Endocrine: Endocrine: Denies excessive sweating Hematologic/Lymphatic: Hematologic/Lymphatic: Denies easy bleeding and Denies easy bruising Allergic/Immunologic: Allergic/Immunologic: Denies lip swelling, Denies tongue swelling and Denies wheezing PMFSH Past Medical History Medical History Anxiety and depression Chronic kidney disease, stage 3a Baseline creatinine 1.04 Claustrophobia Colon cancer (~2011) Rectal cancer Essential hypertension History of small bowel obstruction Obstructive sleep apnea Panic attacks Peripheral neuropathy due to chemotherapy Pre-diabetes Uterus cancer (~2006) Treated with radiation therapy that subsequently caused developing colon cancer in 2011 Surgical History Surgical History History of colon resection (~2011) Low anterior resection of the colorectum with ileostomy with subsequent takedown 2012 History of insertion of tunneled central venous catheter (CVC) with port (~2011) Left subclavian History of reversal of ileostomy (~2011) History of total abdominal hysterectomy for endometrial cancer History of tubal ligation (~1972) Hx of cholecystectomy (~1994) Knee joint replace
[2023-05-23] MEDS: HYDROmorphone HCL INJ (*CRX) 2 MG/ML VIAL 0.5 MG IV PUSH (03:06)
[2023-05-23] MEDS: ONDANSETRON INJ 4 MG/2 ML VIAL IV PUSH (03:07)
[2023-05-23] MEDS: SODIUM CHLORIDE 0.9% IV 1,000 ML 999 ML IV CONT ×3 (03:13→05:30)
[2023-05-23 03:19] LABS: Basophils Absolute Auto 0.07 K/mm3 (0.00-0.10); Basophils Percent Auto 0.6 % (0.0-1.0); Eosinophils Absolute Auto 0.04 K/mm3 (0.02-0.50); Eosinophils Percent Auto 0.3 % (1.0-6.0); Hematocrit 46.6 % (35.0-42.0); Hemoglobin 15.3 g/dL (11.7-13.8); Immature Granulocyte Absolute 0.09 K/mm3 (0.00-0.00); Immature Granulocyte Percent A 0.8 % (0.0-0.0); Lymphocytes Percent Auto 9.5 % (18.0-42.0); Mean Corpuscular HGB Conc 32.8 g/dL (32.0-36.0); Mean Corpuscular Hemoglobin 29.6 pg (27.0-31.0); Mean Corpuscular Volume 90.1 fL (78.0-102.0); Monocytes Absolute Auto 0.42 K/mm3 (0.10-0.90); Monocytes Percent Auto 3.6 % (2.0-11.0); Neutrophils Absolute Auto 9.8 K/mm3 (1.7-7.2); Neutrophils Percent Auto 85.2 % (50.0-70.0); Platelet Count Result 382 K/mm3 (150-420); Red Blood Count 5.17 M/mm3 (4.20-5.40); Red Cell Distribution Width 13.3 % (11.6-14.4); White Blood Count 11.6 K/mm3 (4.8-10.8)
[2023-05-23 03:33] LABS: INR 0.9; Partial Thromboplastin Time 27.4 SEC (23.90-30.70); Prothrombin Time 9.9 Seconds (9.50-12.10)
[2023-05-23 03:35] LABS: Alanine Aminotransferase 67 U/L (14-59); Albumin Level 3.7 g/dL (3.4-5.0); Alkaline Phosphatase 126 U/L (46-116); Amylase 45 U/L (25-115); Anion Gap 14 mmol/L (8-16); Aspartate Amino Transferase 42 U/L (15-37); Bilirubin,Total 0.7 mg/dL (0.00-1.00); Blood Urea Nitrogen 11 mg/dL (7-18); Calcium 9.4 mg/dL (8.5-10.1); Carbon Dioxide 27 mmol/L (21-32); Chloride 100 mmol/L (98-108); Estimated CRCL calculation 40 ml/min; Estimated Glomerular Filt Rate 46; Glucose 197 mg/dL (70-99); Lipase 19 U/L (16-77); Magnesium 2.2 mg/dL (1.8-2.4); Osmolality Calculated 296 mOsm/kg (285-295); Potassium 4.1 mmol/L (3.5-5.1); Sodium 141 mmol/L (136-145); Total Protein 7.7 g/dL (6.4-8.2)
[2023-05-23 03:40] LABS: Lactic Acid Reflex 4.7 mmol/L (0.4-2.0)
[2023-05-23] MEDS: LORazepam INJ (*CRX) 2 MG/ML VIAL 0.5 MG IV PUSH (05:45)
[2023-05-23] MEDS: SODIUM CHLORIDE 0.9% IV 1,000 ML 125 ML IV CONT (05:46)
--- NOTE | 2023-05-23 06:02 | PC.NURSE ---
INSERTED NG TUBE
[2023-05-23 06:18] LABS: Reflex Lactic Acid Yes or No Add Lactic
[2023-05-23] MEDS: LABETALOL HCL INJ 100 MG/20 ML VIAL 40 MG IV PUSH (06:55)
[2023-05-23 07:02] LABS: Lactic Acid 3.3 mmol/L (0.4-2.0)
[2023-05-23 07:05] LABS: Appearance Urine Clear (Clear); Bilirubin Urine Negative (Negative); Blood Urine Trace-Intact (Negative); Color Urine Light Yellow (Yellow); Glucose Urine UA Trace (Negative); Ketones Urine Negative (Negative); Leukocyte Esterase Ur Negative LEU/UL (Negative); Nitrate Urine Negative (Negative); Protein Urine Trace (Negative); Urobilinogen Urine 0.2 mg/dL (0.2-1.0); pH Urine 6.5 (5.0-8.0)
[2023-05-23 07:09] LABS: Add Urine Microscopic? YES; Bacteria Urine Trace /hpf; RBC Urine 0-2 /hpf (0-2); Squamous Epithelial Cell Urine Few /hpf (Few); WBC Urine 0-3 /hpf (0-3)
--- NOTE | 2023-05-23 08:42 | PM.IMHP ---
H&P: HPI History of Present Illness Date/Time: 05/23/23 08:42 Chief Complaint: abdominal pain Narrative: 72-year-old female with history of hypertension, CKD, ZACHARIAH, uterine and colon cancer as well as multiple abdominal operations and recurrent bowel obstructions is presenting with the same. Patient states she has had nausea and vomiting almost constantly since yesterday. She did have a small bowel movement yesterday, but no flatus since then. No chest pain or shortness of breath. No diarrhea. No fevers or chills. [facility] Past Medical History Medical History Anxiety and depression Chronic kidney disease, stage 3a Baseline creatinine 1.04 Claustrophobia Colon cancer (~2011) Rectal cancer Essential hypertension History of small bowel obstruction Obstructive sleep apnea Panic attacks Peripheral neuropathy due to chemotherapy Pre-diabetes Uterus cancer (~2006) Treated with radiation therapy that subsequently caused developing colon cancer in 2011 Surgical History Surgical History History of colon resection (~2011) Low anterior resection of the colorectum with ileostomy with subsequent takedown 2013 History of insertion of tunneled central venous catheter (CVC) with port (~2011) Left subclavian History of reversal of ileostomy (~2011) History of total abdominal hysterectomy for endometrial cancer History of tubal ligation (~1972) Hx of cholecystectomy (~1994) Knee joint replacement status (~2014) Complicated by MSSA infection Family History Family History Mother Dementia Age older than 85 years Father Diabetes mellitus Coronary artery disease Social History Social History Social History: Patient is . She had 2 children. 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 Spiritual care concerns: No Meds Home Medications and Allergies Home Medications Medication Instructions Recorded Confirmed Type lorazepam 0.5 mg tablet (Ativan) 0.5 mg PO BID PRN agitation #5 tabs 02/11/22 05/23/23 Rx potassium chloride 10 mEq See Rx Instructions .Route 03/21/22 05/23/23 Rx tablet,extended release(part/cryst) .COMPLEX #180 tabs paroxetine HCl 20 mg tablet See Rx Instructions .Route 12/19/22 05/23/23 Rx .COMPLEX #90 tabs semaglutide (weight loss) 0.25 0.25 mg (0.5 mL) subcut WEEKLY #2 02/08/23 05/23/23 Rx mg/0.5 mL subcutaneous pen mL injector (Wegovy) furosemide 40 mg tablet See Rx Instructions .Route 03/23/23 05/23/23 Rx .COMPLEX #100 tabs lisinopril 20 mg tablet See Rx Instructions .Route 03/23/23 05/23/23 Rx .COMPLEX #100 tabs hydrochlorothiazide 12.5 mg capsule See Rx Instructions .Route 05/12/23 05/23/23 Rx .COMPLEX #30 caps Allergies Allergy/AdvReac Type Severity Reaction Status Date / Time No Known Allergies Allergy Verified 02/08/23 08:50 Vital Signs Vital Signs - 24 hr 05/23/23 02:47 05/23/23 03:30 05/23/23 04:00 Temperature 98.6 F Pulse Rate 86 88 78 Respiratory Rate 18 18 18 Blood Pressure 179/113 H 158/90 H 148/98 H Pulse Oximetry 98 98 98 Oxygen Delivery Room Air Room Air Room Air 05/23/23 04:51 05/23/23 06:59 05/23/23 07:00 Temperature 98.5 F Pulse Rate 70 79 78 Respiratory Rate 18 14 14 Blood Pressure 144/89 H Pul
== END 2023-05-23 07:52 | disposition short-term general hospital (02) ==
PROVIDERS: Emergency Provider Emergency Medicine; PCP Family Medicine
DX: K56.50 Intestinal adhesions [bands], unspecified as to partial versus complete obstruction (principal); R11.2 Nausea with vomiting, unspecified; I12.9 Hypertensive chronic kidney disease with stage 1 through stage 4 chronic kidney disease, or unspecified chronic kidney disease; N18.31 Chronic kidney disease, stage 3a; Z90.49 Acquired absence of other specified parts of digestive tract; Z85.038 Personal history of other malignant neoplasm of large intestine; Z85.42 Personal history of malignant neoplasm of other parts of uterus
CPT/HCPCS: 36415; 74018; 74176; 80053; 81001; 82150; 83605; 83690; 83735; 85025; 85610; 85730; 96361; 96374; 96375; 99285; J1170; J2060; J2405; J7030

== ENCOUNTER 2023-05-23 09:30 | Inpatient (IN) | payer MEDICARE, SELFPAY ==
--- NOTE | ~2023-05-23 | XR_ITS ---
XR shoulder RT min 2V 05/24/2023 14:08 INDICATION: Right shoulder pain after fall PROCEDURE: 5 views right shoulder COMPARISON: No prior studies for comparison. FINDINGS: Fracture, dislocation or subluxation is not identified. The soft tissues appear within norm al limits. No foreign bodies are identified. IMPRESSION: 1: NO ACUTE BONE OR JOINT ABNORMALITY IDENTIFIED. Reviewed, dictated and finalized at location B.
--- NOTE | ~2023-05-23 | XR_ITS ---
EXAMINATION: XR sm bowel follow through WS DATE: 05/24/2023 10:35 INDICATION: Small bowel obstruction TECHNIQUE: Automation Machine Operator radiograph(s) of the abdomen was/were obtained. Oral contrast was administered, and sequential radiographs of the abdomen were obtained until oral contrast was noted to be in the proxi mal colon. A total of 4 overhead radiographs were obtained. COMPARISON: CT and KUB dated 05/03/[address] studies dated 09/05/2022 and 11/23/2011 FINDINGS: Automation Machine Operator radiograph demonstrates nasogastric tube with tip in proximal side port in the body of the stom ach. Cholecystectomy clips in right upper quadrant. Multiple additional surgical clips in the pelvis and about the lower lumbar spine. Moderate amount of gas and stool scattered throughout the colon. No dilated gas-filled loops of small bowel. Transit time from the stomach to proximal colon was approxi mately 15 minutes. There is normal caliber and mucosal fold pattern throughout the small bowel. No re sidual dilated small bowel to suggest obstruction. The duodenum does not cross the midline with the g astrojejunal junction in the right abdomen which is present on the CT studies from 2022 but new since 2011 suggesting this is related to prior surgery rather than a developmental malrotation. IMPRESSION: 1. No bowel obstruction with transit time to the colon 15 minutes. 2. Nonanatomic course of the proximal small bowel which based upon prior CT imaging appears to repres ent sequela of prior surgery rather than a developmental malrotation. Reviewed, dictated and finalized at location A. IMPRESSION: 1. No bowel obstruction with transit time to the colon 15 minutes. 2. Nonanatomic course of the proximal small bowel which based upon prior CT bishop ging appears to represent sequela of prior surgery rather than a developmental malrotation.
--- NOTE | ~2023-05-23 | XR_ITS ---
XR abdomen gastric tube rechec INDICATION: Evaluate NG tube position. TECHNIQUE: Limited KUB perform for evaluating NG tube . COMPARISON: No prior studies for comparison. FINDINGS: NG tube tip in the stomach. Visualized bowel gas pattern is unremarkable. IMPRESSION: 1: NG tube tip in the stomach. Reviewed, dictated and finalized at location .
[2023-05-23 09:00] VITALS: BP 168/78; PULSE 79; RESP 16; TEMP 36.6; O2SAT 95
--- NOTE | 2023-05-23 09:07 | ADMGEN ---
This patient, Ana Rico, was admitted to Medical Room 349-01. Patient/family oriented to hospital policies and general routines including ID bracelet, bed and alarms, visiting hours, pain management, procedures, bathroom and other care routines, personal items, smoking policy, room service/diet, and visiting hours. Information on how to activate the Rapid Response Team has been discussed. Patient/Family are encouraged to report perceived risks to care and to ask questions if they do not understand what they are told or what they should do.
--- NOTE | 2023-05-23 10:57 | PM.IMHP ---
H&P: HPI History of Present Illness Date/Time: 05/23/23 10:57 Chief Complaint: nausea, vomiting, abdominal pain Narrative: 72-year-old female with history of hypertension, CKD, ZACHARIAH, uterine and colon cancer as well as multiple abdominal operations and recurrent bowel obstructions is presenting with the same.? Patient states she has had nausea and vomiting almost constantly since yesterday.? She did have a small bowel movement yesterday, but no flatus since then.? No chest pain or shortness of breath.? No diarrhea.? No fevers or chills. Review of Systems Review of Systems: 12 point review of systems was assessed and was negative except as noted in the HPI [facility] Past Medical History Medical History Anxiety and depression Chronic kidney disease, stage 3a Baseline creatinine 1.04 Claustrophobia Colon cancer (~2011) Rectal cancer Essential hypertension History of small bowel obstruction Obstructive sleep apnea Panic attacks Peripheral neuropathy due to chemotherapy Pre-diabetes Uterus cancer (~2006) Treated with radiation therapy that subsequently caused developing colon cancer in 2011 Surgical History Surgical History History of colon resection (~2011) Low anterior resection of the colorectum with ileostomy with subsequent takedown 2012 History of insertion of tunneled central venous catheter (CVC) with port (~2011) Left subclavian History of reversal of ileostomy (~2011) History of total abdominal hysterectomy for endometrial cancer History of tubal ligation (~1972) Hx of cholecystectomy (~1994) Knee joint replacement status (~2014) Complicated by MSSA infection Family History Family History Mother Dementia Age older than 85 years Father Diabetes mellitus Coronary artery disease Social History Social History Social History: Patient is . She had 2 children. 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 Spiritual care concerns: No Meds Home Medications and Allergies Home Medications Medication Instructions Recorded Confirmed Type lorazepam 0.5 mg tablet (Ativan) 0.5 mg PO BID PRN agitation #5 tabs 02/11/22 05/23/23 Rx furosemide 40 mg tablet 40 mg PO DAILY 05/23/23 05/23/23 History hydrochlorothiazide 12.5 mg capsule 12.5 mg PO DAILY 05/23/23 05/23/23 History lisinopril 20 mg tablet 20 mg PO DAILY 05/23/23 05/23/23 History paroxetine HCl 20 mg tablet 20 mg PO DAILY 05/23/23 05/23/23 History potassium chloride 10 mEq 20 meq PO DAILY 05/23/23 05/23/23 History tablet,extended release(part/cryst) Allergies Allergy/AdvReac Type Severity Reaction Status Date / Time No Known Allergies Allergy Verified 02/08/23 08:50 Vital Signs Vital Signs - 24 hr 05/23/23 09:00 05/23/23 09:46 Temperature 97.8 F Pulse Rate 79 Respiratory Rate 16 Blood Pressure 168/78 H Pulse Oximetry 95 Oxygen Delivery Room Air Exam Narrative: General: No acute distress, alert and oriented per baseline HEENT: Atraumatic, normocephalic, mucous membranes moist CV: Regular rate and rhythm, S1, S2 Lungs: Clear to auscultation bilaterally, no rales or crackles noted, no wheezes, good air entry Abdomen: Soft, nontender, nondistended Extremities: Normal to i
[2023-05-23] MEDS: LORazepam INJ (*CRX) 2 MG/ML VIAL 0.5 MG IV PUSH (12:15)
[2023-05-23 14:00] VITALS: BP 189/89; PULSE 86; RESP 16; TEMP 36.6; O2SAT 96
--- NOTE | 2023-05-23 15:43 | PM.CNGS ---
Assessment and Plan Assessment and plan (1) Small bowel obstruction: Code(s): K56.609 - Unspecified intestinal obstruction, unspecified as to partial versus complete obstruction Status: Acute Assessment and Plan: CT scan reviewed and initial read from the virtual radiologist suggests a high-grade small bowel obstruction and cannot exclude closed-loop obstruction. Our radiologist has read the CT this morning and suggests early/partial small bowel obstruction with trace ascites, and no transition point clearly identified. Her abdominal pain has improved and she has no peritoneal signs on exam. Will continue NG tube decompression for now with bowel rest. I will start some maintenance IV fluids as well. I have ordered a water-soluble small bowel follow through for tomorrow morning. Further plan depending on these results. (2) Chronic kidney disease, stage 3a: Code(s): N18.31 - Chronic kidney disease, stage 3a Status: Acute (3) Obesity: Code(s): E66.9 - Obesity, unspecified Status: Acute Plan I have discussed the patient's case and plan of care with Dr. Campbell. Thank you for allowing us to see the patient in consultation and we will continue to follow along with you. History of Present Illness Consult details Consult date: 05/23/23 Reason for consult: other (Small-bowel obstruction) Requesting physician: Mariluz Trinidad DO Narrative: This is a 72-year-old woman with a history of multiple previous abdominal surgeries and multiple small bowel obstructions. She is known to our service from a hospitalization in August of this year where she was treated conservatively for a small-bowel obstruction. She reports last night eating a large quantity of food for dinner and then snacked on about 15 caramel chews. Around 10:00 pm she started having some generalized abdominal pain, and thought she over ate. This progressively worsened to severe lower abdominal pain. She developed nausea and had multiple episodes of vomiting at home. With the concern of another bowel obstruction, she presented to [facility] for evaluation. [place] [address] and lactic acid 4.7. Repeat lactic acid was down to 3.3. CT scan of the abdomen and pelvis was initially read by the virtual radiologist suggesting a high-grade small-bowel obstruction and cannot exclude a closed loop obstruction. She had an NG tube placed in the ER and was transferred to [facility]. Our radiologist also read the CT scan this morning and suggested early versus partial small bowel obstruction with no definitive transition point, and trace ascites. She also has a history of panic attacks when she has had an NG placed in the past. Her last hospitalization in August, she had refused NG tube placement and improved with conservative measures. Per nursing, she had a panic attack earlier today related to her NG tube and received Ativan. She has had less than 100 cc out of her NG tube over the past 6 hours. She denies flatus today, and reports she last had a small bowel movement yesterday prior to symptom onset. She reports her abdominal pain is significantly improved since her transfer. She has not received any IV pain medications since early this morning. She has had multiple previous abdominal surgeries including a remote history of a laparoscopic cholecystectomy. She also had endometrial cancer resulting in a total abdominal hysterectomy with bilateral salpingo oophorectomy and radiation therapy. A few years later she was diagnosed with colon cancer and subsequently had a colon resection with an ileostomy and eventual reversal, as well as chemotherapy. Review of Systems Review of Systems: All systems reviewed & are unremarkable except as noted in HPI and below [facility] Past Medical History Medical History Anxiety and depression Chronic kidney disease, stage 3a [facility]
[2023-05-23] MEDS: hydrALAZINE HCL 20 MG/ML VIAL 10 MG IV PUSH ×2 (16:19→21:47)
[2023-05-23] MEDS: SODIUM CHLORIDE 0.9% IV 1,000 ML 100 ML IV CONT (16:19)
[2023-05-23 21:20] VITALS: BP 163/81; PULSE 92; RESP 18; TEMP 36.6; O2SAT 95
[2023-05-23 21:23] VITALS: BMI 39.9
[2023-05-23 22:30] VITALS: BP 160/70; PULSE 98
[2023-05-24] MEDS: LORazepam INJ (*CRX) 2 MG/ML VIAL 0.5 MG IV PUSH (00:16)
[2023-05-24] MEDS: SODIUM CHLORIDE 0.9% IV 1,000 ML 100 ML IV CONT (00:16)
[2023-05-24] MEDS: MORPHINE SULFATE (*CRX) 2 MG/ML INJ IV PUSH ×2 (00:20→11:56)
[2023-05-24 05:09] VITALS: BP 156/74; PULSE 96; RESP 20; TEMP 36.4; O2SAT 96
[2023-05-24 05:24] LABS: Basophils Percent Auto 0.4 % (0.2-1.2); Eosinophils Percent Auto 0.4 % (0-4.4); Hematocrit 36.6 % (37.0-47.0); Hemoglobin 11.7 g/dL (12.0-15.0); Immature Granulocyte Absolute 0.04 K/mm3 (0.00-0.031); Immature Granulocyte Percent A 0.6 % (0-0.5); Lymphocytes Absolute Auto 1.01 K/mm3 (0.9-3.2); Lymphocytes Percent Auto 13.9 % (18.3-44.2); Mean Corpuscular Hemoglobin 29.2 pg (26-34); Mean Corpuscular Volume 91.3 fl (80-100); Monocytes Absolute Auto 0.5 K/mm3 (0.1-0.6); Monocytes Percent Auto 7.2 % (2.6-8.5); Neutrophils Absolute Auto 5.6 K/mm3 (1.3-6.7); Neutrophils Percent Auto 77.5 % (45.5-73.1); Platelet Count Result 236 k/mm3 (150-375); Red Blood Count 4.01 M/mm3 (4.2-5.4); Red Cell Distribution Width 13.7 % (11.5-14.5); White Blood Count 7.3 K/mm3 (4.5-10.0)
[2023-05-24 05:34] LABS: Lactic Acid Reflex 1.2 mmol/L (0.7-2.0)
[2023-05-24] MEDS: hydrALAZINE HCL 20 MG/ML VIAL 10 MG IV PUSH (05:51)
[2023-05-24 06:04] LABS: Alanine Aminotransferase 38 U/L (6-35); Albumin Level 3.5 g/dL (3.5-5.1); Alkaline Phosphatase 87 U/L (38-126); Anion Gap 5 mmol/L (8-16); Aspartate Amino Transferase 25 U/L (14-36); Bilirubin,Total 1.1 mg/dL (0.2-1.3); Blood Urea Nitrogen 9 mg/dL (7-17); Calcium 7.8 mg/dL (8.4-10.2); Carbon Dioxide 26 mmol/L (22-30); Chloride 104 mmol/L (98-107); Estimated CRCL calculation 68 ml/min; Estimated Glomerular Filt Rate > 60; Glucose 116 mg/dL (65-110); Potassium 3.6 mmol/L (3.4-5.0); Sodium 135 mmol/L (137-145)
--- NOTE | 2023-05-24 13:35 | PM.IMPN ---
Progress Note: A&P Assessment and Plan (1) Small bowel obstruction due to postoperative adhesions: Code(s): K91.30 - Postprocedural intestinal obstruction, unspecified as to partial versus complete Status: Inactive Assessment and Plan: Patient with recurrent small-bowel obstructions requiring NG tube decompression, admissions, IV fluid and supportive care, last admission was in August of this year. NG tube was placed. She had improvement. Small-bowel series showed no bowel obstruction with transit time to the colon a 15 minutes. Lactic acid was 4.7 and this has normalized. LFTs have trended downward. NG tube removed today in clear liquid diet to be started. Advance diet as tolerated. Appreciate surgery consultation. Home when she can tolerate oral intake. (2) Anxiety and depression: Code(s): F41.9 - Anxiety disorder, unspecified; F32.A - Depression, unspecified Status: Acute Assessment and Plan: Mood stable Ativan as needed (3) HTN (hypertension): Code(s): I10 - Essential (primary) hypertension Status: Acute Assessment and Plan: Patient's blood pressure was reviewed on 05/24 Blood pressure remains elevated. Will resume home medications. Plan Rt shoulder pain - could be bursitis but did have trauma. check xray. Heating pad. Pain control DVT prophylaxis with SCDs GI prophylaxis not indicated Code status full code Subjective Date/time seen: 05/24/23 13:35 Interval history: 72yo female with pr-DM, HTN, CKD and hx of colon resection here for abdominal pain and found to have pSBO. Assuming care. Chart reviewed. NGT removed today. No n/v. Having BMs. Complains of right shoulder pain for the past few weeks. She did fall on he right shoulder area prior to admission. Has trouble raising the arm. Exam Narrative: AF 97.6 156/74 96 20 96% ra Gen - NARD Chest - CTA bilaterally, nml RR CV - RRR S1/S2 Abd - Soft, NT/ND, Positive BS Ext - No pedal edema. right shoulder pain anteriorly. Neurovascular intake in the RUE. +can sign. Neuro - Alert and oriented. Nonfocal exam. Psych - Nml mood and affect Skin - Warm and dry Objective Data Vital Signs Vital Signs: Vital Signs - 24 hr 05/23/23 14:00 05/23/23 21:20 05/23/23 22:30 Temperature 97.9 F 97.8 F Pulse Rate 86 92 98 Respiratory Rate 16 18 Blood Pressure 189/89 H 163/81 H 160/70 H Pulse Oximetry 96 95 05/24/23 05:09 Temperature 97.6 F Pulse Rate 96 Respiratory Rate 20 Blood Pressure 156/74 H Pulse Oximetry 96 Intake/Output Intake/Output: Intake & Output 05/21/23 05/22/23 05/23/23 05/24/23 23:59 23:59 23:59 23:59 Intake Total 1000 Output Total 400 Balance 600 Meds/Results Medications: Active Medications Generic Name Dose Route Start Last Admin Trade Name Freq PRN Reason Stop Dose Admin Furosemide 40 mg 05/23/23 12:00 05/23/23 11:44 Furosemide 40 Mg Tablet PO Not Given DAILY [facility] Hydralazine HCl 10 mg 05/23/23 21:34 05/24/23 05:51 Hydralazine Hcl 20 Mg/Ml Vial IV PUSH 10 mg Q6H PRN Administration Blood Pressure - High Hydrochlorothiazide 12.5 mg 05/23/23 12:00 05/23/23 11:44 Hydrochlorothiazide 12.5 Mg Capsule PO Not Given DAILY [facility] Lisinopril 20 mg 05/23/23 12:00 05/23/23 11:45 Lisinopril 20 Mg Tablet PO Not Given DAILY [facility] Lorazepam 0.5 mg 05/23/23 10:57 Lorazepam (*Crx) 0.5 Mg Tablet PO BID PRN agitation Lorazepam 0.5 mg 05/23/23 11:18 05/24/23 00:16 Lorazepam Inj (*Crx) 2 Mg/Ml Vial IV PUSH 0.5 mg Q6H PRN Administration Anxiety Morphine Sulfate 2 mg 05/23/23 11:16 05/24/23 11:56 Morphine Sulfate (*Crx) 2 Mg/Ml Inj IV PUSH 2 mg Q4H PRN Administration Pain Rated 7-10 Paroxetine HCl 20 mg 05/23/23 12:00 05/23/23 11:45 Paroxetine 20 Mg Tablet PO Not Given DAILY [facility] Phenol 1 spray 05/23/23 17:58 Phenol/Sod Pheno [place]
[2023-05-24] MEDS: PARoxetine 20 MG TABLET PO (13:43)
[2023-05-24] MEDS: lisinopriL 20 MG TABLET PO (13:43)
[2023-05-24] MEDS: POTASSIUM CHLORIDE 10 MEQ ER TABLET 20 MEQ PO (13:43)
[2023-05-24] MEDS: FUROSEMIDE 40 MG TABLET PO (13:43)
[2023-05-24] MEDS: hydroCHLOROthiazide 12.5 MG CAPSULE PO (13:43)
[2023-05-24 14:00] VITALS: BP 188/72; PULSE 94; RESP 16; TEMP 36.3; O2SAT 98
--- NOTE | 2023-05-24 14:41 | PM.PNGS ---
Progress Note: A&P Assessment and Plan (1) Small bowel obstruction: Code(s): K56.609 - Unspecified intestinal obstruction, unspecified as to partial versus complete obstruction Status: Acute Assessment and Plan: SBFT showed normal transit of contrast to the colon in 15 minutes. NG removed and started on clear liquid diet. Encouraged walking the halls. Plan I have discussed the patient's case and plan of care with Dr. Campbell. Subjective Subjective Date/Time Seen: 05/24/23 14:41 Patient reports: no new complaints, feels better, flatus and bowel movement Interval history: Patient doing well today. Bowels are moving following the SBFT this morning. No abdominal pain, nausea, or vomiting. Exam GI: Inspection: non-distended Objective Data Vital Signs Vital Signs: Vital Signs - 24 hr 05/23/23 21:20 05/23/23 22:30 05/24/23 05:09 Temperature 97.8 F 97.6 F Pulse Rate 92 98 96 Respiratory Rate 18 20 Blood Pressure 163/81 H 160/70 H 156/74 H Pulse Oximetry 95 96 05/24/23 14:00 Temperature 97.3 F L Pulse Rate 94 Respiratory Rate 16 Blood Pressure 188/72 H Pulse Oximetry 98 Intake/Output Intake/Output: Intake & Output 05/21/23 05/22/23 05/23/23 05/24/23 23:59 23:59 23:59 23:59 Intake Total 1000 Output Total 400 Balance 600 Meds/Results Medications: Active Medications Generic Name Dose Route Start Last Admin Trade Name Freq PRN Reason Stop Dose Admin Acetaminophen 650 mg 05/24/23 13:47 Acetaminophen 325 Mg Tablet PO Q6H PRN Mild Pain (1-3) or Fever Hydrocodone Bitart/Acetaminophen 1 tab 05/24/23 13:47 Hydrocodone/Acetaminophen (*Crx) 5-325 Mg Tablet PO Q6H PRN Pain Rated 4-6 Furosemide 40 mg 05/23/23 12:00 05/24/23 13:43 Furosemide 40 Mg Tablet PO 40 mg DAILY EMILY Administration Hydralazine HCl 10 mg 05/23/23 21:34 05/24/23 05:51 Hydralazine Hcl 20 Mg/Ml Vial IV PUSH 10 mg Q6H PRN Administration Blood Pressure - High Hydrochlorothiazide 12.5 mg 05/23/23 12:00 05/24/23 13:43 Hydrochlorothiazide 12.5 Mg Capsule PO 12.5 mg DAILY EMILY Administration Lisinopril 20 mg 05/23/23 12:00 05/24/23 13:43 Lisinopril 20 Mg Tablet PO 20 mg DAILY EMILY Administration Lorazepam 0.5 mg 05/23/23 10:57 Lorazepam (*Crx) 0.5 Mg Tablet PO BID PRN agitation Lorazepam 0.5 mg 05/23/23 11:18 05/24/23 00:16 Lorazepam Inj (*Crx) 2 Mg/Ml Vial IV PUSH 0.5 mg Q6H PRN Administration Anxiety Morphine Sulfate 2 mg 05/23/23 11:16 05/24/23 11:56 Morphine Sulfate (*Crx) 2 Mg/Ml Inj IV PUSH 2 mg Q4H PRN Administration Pain Rated 7-10 Paroxetine HCl 20 mg 05/23/23 12:00 05/24/23 13:43 Paroxetine 20 Mg Tablet PO 20 mg DAILY EMILY Administration Phenol 1 spray 05/23/23 17:58 Phenol/Sod Pheno [place] (*Bkc) MUCOUS MEM PRN PRN Sore Throat Potassium Chloride 20 meq 05/24/23 09:00 05/24/23 13:43 Potassium Chloride 10 Meq Er Tablet PO 20 meq DAILY EMILY Administration Radiology Results: ITS Impressions Abdomen X-Ray 05/23/23 14:16 IMPRESSION: 1: NG tube tip in the stomach. Small Bowel X-Ray 05/24/23 12:23 IMPRESSION: 1. No bowel obstruction with transit time to the colon 15 minutes. 2. Nonanatomic course of the proximal small bowel which based upon prior CT imaging appears to represent sequela of prior surgery rather than a developmental malrotation. Shoulder X-Ray 05/24/23 14:23 IMPRESSION: 1: NO ACUTE BONE OR JOINT ABNORMALITY IDENTIFIED. Labs Labs: Laboratory Results - last 24 hr 05/24/23 05:05 WBC 7.3 RBC 4.01 L Hgb 11.7 L Hct 36.6 L MCV 91.3 MCH 29.2 MCHC 32.0 RDW 13.7 Plt Count 236 MPV 10.0 Immature Gran % (Auto) 0.6 H Neut % (Auto) 77.5 H Lymph % (Auto) 13.9 L [place] % (Auto) 7.2 Eos % (Auto) 0.4 Baso % (Auto) 0.4 Lymph # (Auto) 1.01
[2023-05-24 15:44] VITALS: BP 155/78; PULSE 96
[2023-05-24 21:55] VITALS: BP 150/58; PULSE 80; RESP 18; TEMP 37.1; O2SAT 95
[2023-05-25 05:11] LABS: Basophils Percent Auto 0.6 % (0.2-1.2); Eosinophils Absolute Auto 0.1 K/mm3 (0-0.3); Eosinophils Percent Auto 1.6 % (0-4.4); Hematocrit 36.4 % (37.0-47.0); Hemoglobin 11.8 g/dL (12.0-15.0); Immature Granulocyte Absolute 0.02 K/mm3 (0.00-0.031); Immature Granulocyte Percent A 0.4 % (0-0.5); Lymphocytes Absolute Auto 0.85 K/mm3 (0.9-3.2); Lymphocytes Percent Auto 16.5 % (18.3-44.2); Mean Corpuscular HGB Conc 32.4 g/dl (32-36); Mean Corpuscular Hemoglobin 29.6 pg (26-34); Mean Corpuscular Volume 91.5 fl (80-100); Mean Platelet Volume 9.5 fl (7.4-10.4); Monocytes Absolute Auto 0.4 K/mm3 (0.1-0.6); Monocytes Percent Auto 7.6 % (2.6-8.5); Neutrophils Absolute Auto 3.8 K/mm3 (1.3-6.7); Neutrophils Percent Auto 73.3 % (45.5-73.1); Platelet Count Result 225 k/mm3 (150-375); Red Blood Count 3.98 M/mm3 (4.2-5.4); Red Cell Distribution Width 13.5 % (11.5-14.5); White Blood Count 5.2 K/mm3 (4.5-10.0)
[2023-05-25 05:25] LABS: Alanine Aminotransferase 36 U/L (6-35); Albumin Level 3.5 g/dL (3.5-5.1); Alkaline Phosphatase 84 U/L (38-126); Anion Gap 4 mmol/L (8-16); Aspartate Amino Transferase 23 U/L (14-36); Bilirubin,Total 1.4 mg/dL (0.2-1.3); Blood Urea Nitrogen 11 mg/dL (7-17); Carbon Dioxide 29 mmol/L (22-30); Chloride 102 mmol/L (98-107); Estimated CRCL calculation 60 ml/min; Estimated Glomerular Filt Rate > 60; Glucose 106 mg/dL (65-110); Potassium 3.2 mmol/L (3.4-5.0); Sodium 135 mmol/L (137-145)
[2023-05-25 05:29] VITALS: BP 120/60; PULSE 75; RESP 18; TEMP 37.1; O2SAT 96
[2023-05-25] MEDS: POTASSIUM CHLORIDE 10 MEQ ER TABLET 20 MEQ PO (08:47)
[2023-05-25] MEDS: hydroCHLOROthiazide 12.5 MG CAPSULE PO (08:48)
[2023-05-25] MEDS: lisinopriL 20 MG TABLET PO (08:48)
[2023-05-25] MEDS: PARoxetine 20 MG TABLET PO (08:48)
[2023-05-25] MEDS: FUROSEMIDE 40 MG TABLET PO (08:48)
[2023-05-25] MEDS: POTASSIUM CHLORIDE 20 MEQ ER TABLET 40 MEQ PO (08:51)
--- NOTE | 2023-05-25 12:53 | PM.PNGS ---
Progress Note: A&P Assessment and Plan (1) Small bowel obstruction: Code(s): K56.609 - Unspecified intestinal obstruction, unspecified as to partial versus complete obstruction Status: Acute Assessment and Plan: SBFT reviewed with patient yesterday. No obstruction identified. Likely multifactorial related to what patient ate and hx of adhesions. Recommend soft, low-fiber diet for a couple weeks. Counseled patient on eating small meals spaced apart instead of large meals. Minimize the amounts of raw vegetables in single meal. Return to ED for recurrent symptoms. OK to discharge from surgical standpoint. Will sign off. (2) Obesity: Code(s): E66.9 - Obesity, unspecified Status: Acute Subjective Subjective Date/Time Seen: 05/25/23 12:53 Interval history: Tolerating diet. Bowels moving. No abdominal pain. No bloating, nausea, or vomiting. Exam GI: Inspection: non-distended and scar GI Palp: Yes Soft to palpation, No Tenderness to palpation present (GI), No Guarding due to palpation present (GI) and No Rebound tenderness present Percussion: Yes normal to percussion Auscultation: normal bowel sounds Objective Data Vital Signs Vital Signs: Vital Signs - 24 hr 05/24/23 14:00 05/24/23 15:44 05/24/23 21:55 Temperature 36.3 C L 37.1 C Pulse Rate 94 96 80 Respiratory Rate 16 18 Blood Pressure 188/72 H 155/78 H 150/58 H Pulse Oximetry 98 95 Oxygen Delivery 05/25/23 05:29 05/25/23 08:52 Temperature 37.1 C Pulse Rate 75 Respiratory Rate 18 Blood Pressure 120/60 Pulse Oximetry 96 Oxygen Delivery Room Air Intake/Output Intake/Output: Intake & Output 05/22/23 05/23/23 05/24/23 05/25/23 23:59 23:59 23:59 23:59 Intake Total 2070 240 Output Total 400 Balance 1670 240 Meds/Results Medications: Active Medications Generic Name Dose Route Start Last Admin Trade Name Freq PRN Reason Stop Dose Admin Acetaminophen 650 mg 05/24/23 13:47 Acetaminophen 325 Mg Tablet PO Q6H PRN Mild Pain (1-3) or Fever Hydrocodone Bitart/Acetaminophen 1 tab 05/24/23 13:47 Hydrocodone/Acetaminophen (*Crx) 5-325 Mg Tablet PO Q6H PRN Pain Rated 4-6 Furosemide 40 mg 05/23/23 12:00 05/25/23 08:48 Furosemide 40 Mg Tablet PO 40 mg DAILY EMILY Administration Hydralazine HCl 10 mg 05/23/23 21:34 05/24/23 05:51 Hydralazine Hcl 20 Mg/Ml Vial IV PUSH 10 mg Q6H PRN Administration Blood Pressure - High Hydrochlorothiazide 12.5 mg 05/23/23 12:00 05/25/23 08:48 Hydrochlorothiazide 12.5 Mg Capsule PO 12.5 mg DAILY EMILY Administration Lisinopril 20 mg 05/23/23 12:00 05/25/23 08:48 Lisinopril 20 Mg Tablet PO 20 mg DAILY EMILY Administration Lorazepam 0.5 mg 05/23/23 10:57 Lorazepam (*Crx) 0.5 Mg Tablet PO BID PRN agitation Lorazepam 0.5 mg 05/23/23 11:18 05/24/23 00:16 Lorazepam Inj (*Crx) 2 Mg/Ml Vial IV PUSH 0.5 mg Q6H PRN Administration Anxiety Morphine Sulfate 2 mg 05/23/23 11:16 05/24/23 11:56 Morphine Sulfate (*Crx) 2 Mg/Ml Inj IV PUSH 2 mg Q4H PRN Administration Pain Rated 7-10 Paroxetine HCl 20 mg 05/23/23 12:00 05/25/23 08:48 Paroxetine 20 Mg Tablet PO 20 mg DAILY EMILY Administration Phenol 1 spray 05/23/23 17:58 Phenol/Sod Pheno [place] (*Bkc) MUCOUS MEM PRN PRN Sore Throat Potassium Chloride 20 meq 05/24/23 09:00 05/25/23 08:47 Potassium Chloride 10 Meq Er Tablet PO 20 meq DAILY EMILY Administration Radiology Results: ITS Impressions Abdomen X-Ray 05/23/23 14:16 IMPRESSION: 1: NG tube tip in the stomach. Small Bowel X-Ray 05/24/23 12:23 IMPRESSION: 1. No bowel obstruction with transit time to the colon 15 minutes. 2. Nonanatomic course of the proximal small bowel which based upon prior CT imaging appears to represent sequela of prior surgery rather than a developmental
[2023-05-25 14:00] VITALS: BP 143/49; PULSE 85; RESP 16; TEMP 36.6; O2SAT 97
--- NOTE | 2023-05-25 16:18 | PM.DS ---
DS: Admitting Diagnosis Discharge Date 05/25/23 Admitting Diagnosis Nausea, vomiting, abdominal pain DS: Discharge Diagnosis Discharge Diagnosis (1) Small bowel obstruction due to postoperative adhesions: Code(s): K91.30 - Postprocedural intestinal obstruction, unspecified as to partial versus complete Status: Acute (2) Anxiety and depression: Code(s): F41.9 - Anxiety disorder, unspecified; F32.A - Depression, unspecified Status: Acute (3) HTN (hypertension): Code(s): I10 - Essential (primary) hypertension Status: Acute (4) Shoulder pain: Code(s): M25.519 - Pain in unspecified shoulder Status: Acute DS: Summary Hospital Course Reason for hospitalization: 72yo female with pr-DM, HTN, CKD and hx of colon resection here for abdominal pain and found to have pSBO. Please see H&P for details. Hospital Course: Patient presents with nausea, vomiting and abdominal pain. She has recurrent small-bowel obstructions requiring NG tube decompression, admissions, IV fluid and supportive care with last admission in August of this year. CT Abdomen and pelvis showing several mildly dilated small loops in right mid abdomen consistent with partial SBO. NG tube was placed.? She had improvement.? Small-bowel series showed no bowel obstruction with transit time to the colon a 15 minutes. Lactic acid was 4.7 and this has normalized. LFTs have trended downward. NG tube removed and clear liquid diet started.?Diet was advanced which she tolerated. Appreciate surgery consultation. She was having rt shoulder pain which could be bursitis but did have trauma. Xray showing no fracture. She was treated symptomatically. She overall did well and was able to be dischaged home on 05/25/23. Status at Discharge Cognitive/behavioral status at discharge: stable Time Spent with Patient Time attestation: Total time spent providing and/or coordinating discharge services: 35 minutes Time spent: Greater than 30 minutes Exam Narrative: AF 97.9 143/49 85 16 97% ra Gen - NARD Chest - CTA bilaterally, nml RR CV - RRR S1/S2 Abd - Soft, NT/ND, Positive BS Ext - No pedal edema. Psych - Nml mood and affect Skin - Warm and dry DS: Data Data Completed and Pending Labs on day of discharge: Labs from last 24 hours 05/25/23 05:05 WBC 5.2 RBC 3.98 L Hgb 11.8 L Hct 36.4 L MCV 91.5 MCH 29.6 MCHC 32.4 RDW 13.5 Plt Count 225 MPV 9.5 Immature Gran % (Auto) 0.4 Neut % (Auto) 73.3 H Lymph % (Auto) 16.5 L [place] % (Auto) 7.6 Eos % (Auto) 1.6 Baso % (Auto) 0.6 Lymph # (Auto) 0.85 L [place] # (Auto) 0.4 Eos # (Auto) 0.1 Baso # (Auto) 0.0 Abs Immat Gran (auto) 0.02 Absolute Neuts (auto) 3.8 Absolute Nucleated RBC 0.0 Nucleated RBC % 0.0 Sodium 135 L Potassium 3.2 L Chloride 102 Carbon Dioxide 29 Anion Gap 4 L BUN 11 Creatinine 0.80 Estim Creat Clear Calc 60 Estimated GFR > 60 Glucose 106 Calcium 8.0 L Total Bilirubin 1.4 H AST 23 ALT 36 H Alkaline Phosphatase 84 Total Protein 6.0 L Albumin 3.5 Discharge Plan Discharge Attending physician on discharge: Demarcus Avery Discharging Clinician: Demarcus Avery Anticipated Discharge Date/Time: 05/25/23 16:25 Patient Disposition: Home, Self-Care Activity: as tolerated Diet: heart healthy Discharge Instructions: Take precautions to avoid falls. Rise slowly from a lying or sitting position. Pause before standing or walking. Stop eating for 12-24hours at the onset of abdominal pain. Walk as much as possible. If abdominal pain resolves and/or you pass stool, then start a liquid diet for the next 12-24 hours and advance slowly back to your regular diet. Contact your doctor or call 911 and come to the Emergency Room if you have worsening abdominal pain or other worrisome symptoms. Avoid NSAIDs (ibuprofen, naproxen, Aleve). Tylenol is safe to take. Follow-up with your
== END 2023-05-25 16:36 | disposition home or self-care (01) | DRG 390 ==
PROVIDERS: Nurse Practitioner Family; Admitting Provider Student in an Organized Health Care Education/Training Program; PCP Family Medicine; Visit Provider Internal Medicine
DX: K56.600 Partial intestinal obstruction, unspecified as to cause (principal); E11.22 Type 2 diabetes mellitus with diabetic chronic kidney disease; F41.9 Anxiety disorder, unspecified; F32.A Depression, unspecified; I12.9 Hypertensive chronic kidney disease with stage 1 through stage 4 chronic kidney disease, or unspecified chronic kidney disease; G47.33 Obstructive sleep apnea (adult) (pediatric); N18.31 Chronic kidney disease, stage 3a; M25.511 Pain in right shoulder; Z90.49 Acquired absence of other specified parts of digestive tract; Z85.42 Personal history of malignant neoplasm of other parts of uterus; Z85.038 Personal history of other malignant neoplasm of large intestine; Z92.21 Personal history of antineoplastic chemotherapy; Z90.710 Acquired absence of both cervix and uterus; Z96.659 Presence of unspecified artificial knee joint
CPT/HCPCS: 36415; 73030; 74250; 80053; 83605; 85025; A9270; J0360; J2060; J2270; J7030

== ENCOUNTER 2024-04-09 14:26 | Outpatient (CLI) | payer MEDICARE, SELFPAY ==
[2024-04-09 16:06] LABS: Cholesterol 190 mg/dL (0-200); HDL Direct 37 mg/dL (40-60); LDL Cholesterol Calculated 109 mg/dL (<130); Triglycerides 221 mg/dL (0-150)
[2024-04-15 10:15] LABS: Hematocrit 43.9 % (35.0-42.0); Hemoglobin 13.5 g/dL (11.7-13.8); Mean Corpuscular HGB Conc 30.8 g/dL (32-36); Mean Corpuscular Hemoglobin 29.3 pg (27.0-31.0); Mean Corpuscular Volume 95.4 fL (78.0-102.0); Platelet Count Result 170 K/mm3 (150-420); Red Cell Distribution Width 13.2 % (11.6-14.4); White Blood Count 2.2 K/mm3 (4.8-10.8)
[2024-04-15 18:02] LABS: Alanine Aminotransferase 20 U/L (14-59); Alkaline Phosphatase 104 U/L (46-116); Aspartate Amino Transferase 12 U/L (15-37); Bilirubin,Total 0.5 mg/dL (0.00-1.00); Blood Urea Nitrogen 15 mg/dL (7-18); Calcium 8.8 mg/dL (8.5-10.1); Chloride 104 mmol/L (98-108); Estimated Glomerular Filt Rate 40; Glucose 159 mg/dL (70-99); Osmolality Calculated 301 mOsm/kg (285-295); Potassium 3.7 mmol/L (3.5-5.1); Sodium 144 mmol/L (136-145); Thyroid Stimulating Hormone 1.17 uIU/mL (0.36-3.74); Total Protein 7.3 g/dL (6.4-8.2)
[2024-04-15 18:32] LABS: Anion Gap 28 mmol/L (4-12); Carbon Dioxide 12 mmol/L (21-32)
[2024-04-16 14:12] LABS: Hemoglobin A1C 5.6 % (<5.7)
== END 2024-04-09 14:27 | disposition home or self-care (01) ==
LOC: CHSLAB 14:29
PROVIDERS: PCP Family Medicine; Visit Provider Nurse Practitioner Family
DX: E11.9 Type 2 diabetes mellitus without complications (principal)
CPT/HCPCS: 36415; 80053; 80061; 83036; 84443; 85027

== ENCOUNTER 2024-04-30 09:45 | Outpatient (CLI) | payer MEDICARE, SELFPAY ==
[2024-04-30 09:59] LABS: Basophils Absolute Auto 0.05 K/mm3 (0.00-0.10); Basophils Percent Auto 0.8 % (0.0-1.0); Eosinophils Absolute Auto 0.15 K/mm3 (0.02-0.50); Eosinophils Percent Auto 2.4 % (1.0-6.0); Hemoglobin 13.4 g/dL (11.7-13.8); Immature Granulocyte Absolute 0.03 K/mm3 (0.00-0.00); Immature Granulocyte Percent A 0.5 % (0.0-0.0); Lymphocytes Absolute Auto 1.48 K/mm3 (1.10-4.50); Lymphocytes Percent Auto 23.5 % (18.0-42.0); Mean Corpuscular HGB Conc 32.7 g/dL (32-36); Mean Corpuscular Hemoglobin 28.6 pg (27.0-31.0); Mean Corpuscular Volume 87.4 fL (78.0-102.0); Mean Platelet Volume 10.4 fl (9.2-11.8); Monocytes Absolute Auto 0.45 K/mm3 (0.10-0.90); Monocytes Percent Auto 7.1 % (2.0-11.0); Neutrophils Absolute Auto 4.14 K/mm3 (1.70-7.20); Neutrophils Percent Auto 65.7 % (50.0-70.0); Platelet Count Result 267 K/mm3 (150-420); Red Blood Count 4.69 M/mm3 (4.20-5.40); Red Cell Distribution Width 13.6 % (11.6-14.4); White Blood Count 6.3 K/mm3 (4.8-10.8)
[2024-04-30 10:03] LABS: Add Urine Microscopic? NO; Appearance Urine Clear (Clear); Bilirubin Urine Negative (Negative); Blood Urine Negative (Negative); Color Urine Light Yellow (Yellow); Glucose Urine UA Negative (Negative); Ketones Urine Negative (Negative); Leukocyte Esterase Ur Negative LEU/UL (Negative); Nitrate Urine Negative (Negative); Protein Urine Negative (Negative); Urobilinogen Urine 0.2 mg/dL (0.2-1.0)
[2024-04-30 10:58] LABS: Albumin Level 3.4 g/dL (3.4-5.0); Anion Gap 5 mmol/L (4-12); Blood Urea Nitrogen 19 mg/dL (7-18); Calcium 8.8 mg/dL (8.5-10.1); Carbon Dioxide 34 mmol/L (21-32); Chloride 102 mmol/L (98-108); Estimated Glomerular Filt Rate 44; Glucose 110 mg/dL (70-99); Osmolality Calculated 295 mOsm/kg (285-295); Phosphorus 2.9 mg/dL (2.6-4.7); Potassium 3.6 mmol/L (3.5-5.1); Sodium 141 mmol/L (136-145)
== END 2024-04-30 09:46 | disposition home or self-care (01) ==
LOC: CHSLAB 09:47
PROVIDERS: PCP Family Medicine; Visit Provider Nurse Practitioner Family
DX: R79.89 Other specified abnormal findings of blood chemistry (principal); N18.31 Chronic kidney disease, stage 3a
CPT/HCPCS: 36415; 80069; 81003; 85025

== ENCOUNTER 2024-09-18 13:19 | Outpatient (CLI) | payer MEDICARE, SELFPAY ==
--- OUTSIDE RECORDS SUMMARY | 2024-09-18 13:24 | XMS_ITS | Clinical Summary ---
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 Gender Identity Not on file Sexual Orientation Not on file Plan of Treatment Health Maintenance Due Date Last Done Comments Colorectal Cancer Screening Colonoscopy (10 Years) 1949 Hepatitis C 12/15/1967 DTaP, Tdap and Td Vaccines ( 1 - Tdap) 1968 Mammogram Screening 1989 Zoster Vaccines (1 of 2) 12/15/1999 Dexa Scan (General) 2014 Pneumococcal Vaccine: 65+ Ye ars (1 of 1 - PCV) 2014 COVID-19 Vaccine (2023-2 5 season) 2024 Influenza Adult (#1) 2024 RSV Immunization or 60+ Years (1 - 1-dose 75+ series) 2024 Meningococcal B Vaccine Aged Out No l onger eligible based on patient's age to complete this topic Meningococcal Vaccine Aged Out No susie debora eligible based on patient's age to complete this topic RSV Immunizations Under 20 Months Aged Out No longer eligible based on patient's age to complete this topic
== END 2024-09-18 13:20 | disposition home or self-care (01) ==
PROVIDERS: PCP Family Medicine; Visit Provider Family Medicine
DX: Z12.31 Encounter for screening mammogram for malignant neoplasm of breast (principal)
CPT/HCPCS: 99199

== ENCOUNTER 2024-09-19 08:49 | Outpatient (CLI) | payer MEDICARE, SELFPAY ==
--- NOTE | ~2024-09-19 | US_ITS ---
Please refer to diagnostic mammogram report dated 09/19/2024 for details. Reviewed, dictated and finalized at location [] BUSINESS DEVELOPMENT
--- NOTE | ~2024-09-19 | MM_ITS ---
EXAMINATION: MM diagnostic conner BI w fatemeh HISTORY: Palpable left breast lump TECHNIQUE: Additional 3-D tomosynthesis images of the breasts were performed and synthetic 2-D images were generated. CAD analysis was submitted and interpreted. High resolution Limited left breast ultr asound was performed. COMPARISON: 06/17/2011 BREAST PARENCHYMAL COMPOSITION: Not dense: There are scattered areas of fibroglandular density. FINDINGS: MAMMOGRAPHIC FINDINGS: There is a new spiculated mass centered in the upper inner quadrant of the left breast, middle third. There is no mammographic evidence for malignancy in the right breast. ULTRASOUND: In the area of palpable concern at 10:00, 10 cm from the nipple there is an irregular shaped hypoecho ic 4 cm mass with posterior shadowing and internal vascularity corresponding to the mammographic and palpable finding. There are normal left axillary lymph nodes without cortical thickening. IMPRESSION: 1. New spiculated left breast mass at 10:00, 10 cm from the nipple measuring 4 cm. 2. Ultrasound-guided left breast biopsy recommended. BI-RADS category 5, highly suggestive of malignancy. Reviewed, dictated and finalized at location [] PRESIDENT OF MANUFACTURING
--- OUTSIDE RECORDS SUMMARY | 2024-09-19 08:59 | XMS_ITS | Clinical Summary ---
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
== END 2024-09-19 08:50 | disposition home or self-care (01) ==
LOC: CHSIMG 08:50
PROVIDERS: PCP Family Medicine; Visit Provider Family Medicine
DX: R92.8 Other abnormal and inconclusive findings on diagnostic imaging of breast (principal)
CPT/HCPCS: 76642; 77062; 77066; G0279

== ENCOUNTER 2024-10-07 08:38 | Outpatient (CLI) | payer MEDICARE, SELFPAY ==
--- NOTE | ~2024-10-07 | MMUS_ITS ---
EXAMINATION: US breast biopsy LT w image, MM post biopsy diagnostic LT DATE: 10/07/2024 10:16 (accession [id number]), 10/07/2024 10:07 (accession [id number]) INDICATION: BI-RADS 5 lesion within the left breast. BREAST PARENCHYMAL COMPOSITION:Not dense: Scattered areas of fibroglandular density TECHNIQUE: The procedure including the risks, benefits, and alternatives was discussed with the patie nt. Risks discussed included bleeding and infection. The patient understood the risks and agreed to proceed. The skin overlying the left breast lesion was prepped and draped in usual sterile fashion. Anestheti c was administered with 1% lidocaine subcutaneously. Limited ultrasound examination of the right breast was then again performed. At the 10:00 position of the left breast approximately 10 cm from the nipple is an irregular shadowin g focus with angular margins and increased vascularity, suitable for biopsy. Limited ultrasound was then performed of the left axilla which demonstrated benign fibromuscular skull [place] ents without a cystic or solid lesion of A 13G introducer was placed using ultrasound guidance into the abnormality at the 10:00 position of t he left breast, and the inner needle removed. A 14-gauge biopsy device was then used to obtain 3 biopsy specimens under continuous sonographic guid ance. The biopsy device was then removed, and through the introducer a BUTTERFLY marker was placed. All devices within removed. The entry site was cleaned and dressed with Steri-Strips. There were no immediate complications. Post biopsy mammography was then performed in both the CC and MLO positions demonstrating a butterfly microclip in the upper inner quadrant of the left breast without a significant perilesional hematoma . IMPRESSION: Technically successful ultrasound-guided core needle biopsy of the mammographic and sonographic abnor mality at the 10:00 position of the left breast with post procedure mammogram for BUTTERFLY marker pl acement. Pathology pending. Reviewed, dictated and finalized at location A. IMPRESSION: Technically successful ultrasound-guided core needle biopsy of the mammographic and sonographic abnormality at the 10:00 position of the left breast with post procedure mammogram for BUTTERFLY marker placement. Pathology pending.
--- OUTSIDE RECORDS SUMMARY | 2024-10-07 09:14 | XMS_ITS | Clinical Summary ---
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
== END 2024-10-07 08:39 | disposition home or self-care (01) ==
PROVIDERS: PCP Family Medicine; Visit Provider Nurse Practitioner Family
DX: N63.22 Unspecified lump in the left breast, upper inner quadrant (principal)
CPT/HCPCS: 19083; 77065; 88305; 88341; 88342; 88360; A4648

== ENCOUNTER 2024-10-18 11:00 | Outpatient (CLI) | payer MEDICARE, SELFPAY ==
--- NOTE | 2024-10-18 11:18 | ECG_ITS ---
Test Date: 2024-10-18 11:31:45 Measurements Intervals [place] Rate: 66 P: -9 LA: 167 QRS: -41 QRSD: 104 T: -41 QT: 437 QTc: 460 Interpretive Statements SINUS RHYTHM MARKED LEFT AXIS DEVIATION [QRS AXIS < -30] MINIMAL VOLTAGE CRITERIA FOR LVH, CONSIDER NORMAL VARIANT [MEETS CRITERIA IN ONE OF: R(aVL), S(V1), R(V5), R(V5/V6)+S(V1)] POSSIBLE ANTERIOR MYOCARDIAL INFARCTION [30 ms Q WAVE IN V3/V4, OR R < 0.2 mV IN V4], OF INDETERMINATE AGE MODERATE T-WAVE ABNORMALITY, CONSIDER LATERAL ISCHEMIA [-0.1+ mV T WAVE IN I/aVL/V5/V6] WARNING: DATA QUALITY MAY AFFECT INTERPRETATION No previous ECG available for comparison Electronically Signed On 10-18-2024 18:36:02 CDT by Nicolasa Schaffer M.D.
[2024-10-18 11:59] LABS: Anion Gap 6 mmol/L (4-12); Blood Urea Nitrogen 13 mg/dL (7-17); Calcium 8.4 mg/dL (8.4-10.2); Carbon Dioxide 28 mmol/L (22-30); Chloride 109 mmol/L (98-107); Estimated Glomerular Filt Rate 60; Glucose 110 mg/dL (65-110); Potassium 3.5 mmol/L (3.4-5.0); Sodium 143 mmol/L (137-145)
--- OUTSIDE RECORDS SUMMARY | 2024-10-18 12:19 | XMS_ITS | Clinical Summary ---
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
--- OUTSIDE RECORDS SUMMARY | 2024-10-18 12:19 | XMS_ITS | Encounter Summary ---
Author Organization [facility] Address [address] [place] [address] Care Team Providers Care Turning Sander Tender Name Role Phone Unavailable Primary Care Provider Unavailabl e Encounter Details Date Type Department Care Team (Late st Contact Info) Description 10/09/2024 Lab Requisition [facility] - Pathology Lab [address] [place] [id number] Edgar Jacobson MD [address] [address] Illness, unspecified Social History Tobacco Use Types Packs/Day Years Used Date Smoking Tobacco: Never Assessed Sex and Gender Information Value Date Recorded Sex Assigned at Not on file Gender Identity Not on file Sexual Orientation Not on file documented as of this encounter Plan of Treatment Not on file documented as of this encounter Procedures Procedure Name Priority Date/Time Associated Diagnosis Comments PATHOLOGY TISSUE Routine 10/07/2024 10:1 4 AM CDT Illness, unspecified documented in this encounter Results * PATHOLOGY TISSUE (10/07/2024 10:14 AM CDT) Case Report Surgical Pathology Report Case: [id number] Authorizing Provider: Edgar Jacobson MD Collected: 10/07/2024 10:14 AM Ordering Location: [facility] - Received: 10/09/2024 04:51 PM Pathology Lab Pathologist: Jesusita Palmer MD Specimen: Breast Biopsy 10/10/2024 4:33 PM CDT [facility] Final Diagnosis Breast, left 10 o'clock 10 cm from nipple, biopsy (A): - Abundant detached atypical breast epithelium, see comment 10/10/2024 4:33 PM CDT [facility] Microscopic Description and Comment Sections show predominantly blood with numerous admixed epithelial cells. These cells show monotony with diffuse ER, MN and GATA3 staining, and are negative for PAX8. There are irregular clusters of cells present in stroma that only stain focally with ER and keratin stain. Due to the paucity of intact tissue cores it is difficult to fully exclude possible invasion. The cytologic monotony and diffuse hormone receptor staining in the detached cells is consistent with a clonal process of at least atypical hyperplasia. The combination of radiographic and cytologic findings are highly concerning for a carcinoma. This lesion would be best classified on excision. 10/10/2024 4:33 PM [facility] PATH[facility]Y [facility] Clinical History The patient is a 73-year-old woman with a history of uterine and colon carcinoma. She now has a new spiculated 4 cm mass centered in the upper inner quadrant of the left breast. 10/10/2024 4:33 PM [facility] Materials Received Received are 13 slide(s) and 1 block labeled [id number] along with a copy of the outside pathology report. [place] [address]. All original materials are returned to the referring institution, along with a copy of our final report. 10/10/2024 4:33 PM [facility] Pathologist Location at [facility] 10/10/2024 4:33 PM [facility] Disclaimer The performance characteristics of all immunohistochemical and indirect immunofluorescence stains (if any) cited in this report were determined by the Histopathology Laboratory of [facility]. Some of these tests were developed by our own laboratory and have not been cleared or approved by the US Food and Drug Administration. The FDA does not require this test to go through premarket FDA review. These tests are used for clinical purposes. They should not be regarded as investigational or for research. This laboratory is certified under the Clinical Laboratory Improvement Amendments (CLIA) as qualified to perform high complexity clinical laboratory testing. This case has been personally reviewed and interpreted by the attending (teaching) pathologist. 10/10/2024 4:33 PM [facility] Embedded Images 10/10/2024 4:33 PM [facility] Pathology/Cytolo gy BIOPSY OF BREAST / Unknown 10/07/2024 10:14 AM CDT 10/09/2024 4:51 PM CDT Edgar Jacobson MD LAB - PATHOLOGY/CYTO LOGY ORDERABLES Performing Organization Address City/State/[facility] Co de Phone Number [facility] [address] [phone] documented in this encounter Visit Diagnoses Diagnosis Illness, unspecified documented in this encounter
--- OUTSIDE RECORDS SUMMARY | 2024-10-18 12:19 | XMS_ITS | Clinical Summary ---
[facility] Address [address] [facility] [place] [address] Care Team Providers Care Manager Global Name Role Phone Unavailable Primary Care Provider Unavailabl e Social History Tobacco Use Types Packs/Day Years Used Date Smoking Tobacco: Never Assessed Comments Unknown Sex and Gender Information Value Date Recorded Sex Assigned at Not on file Legal Sex Female 4:16 PM CDT Gender Identity Not on file Sexual Orientation Not on file Plan of Treatment Upcoming Encounters Date Type Department Care Team (Late st Contact Info) Description 10/28/2024 1:30 PM CDT Office Visit [facility] Oncology and Hematology - August [address] [facility] [address] [address] James Swain MD [address] [facility] [address] [place] [address] Health Maintenance Due Date Last Done Comments DTAP/TDAP/TD VACCINES (1 - Tdap) 1968 BREAST CANCER SCREENING 1989 COLORECTAL SCREENING 1994 Colorectal Cancer Screening 1994 FIT-DNA Q 3 years 1994 FIT/FOBT Q 1 year 1994 Flex Sig/CT Colonography Q 5 years 1994 PNEUMOCOCCAL VACCINE 50+ YEARS (1 of 1 - PCV) 12/15/19 00 ZOSTER VACCINE (1 of 2) 12/15/1999 OSTEOPOROSIS SCREENING 2014 INFLUENZA VACCINE (#1) 2024 [place] Prev entative Visit/Annual Wellness Visit 07/31/2024 RSV VACCINE (60+ or ) (1 - 1-dose 75+ series) 2024 Insurance [facility] [id number]
--- OUTSIDE RECORDS SUMMARY | 2024-10-18 12:19 | XMS_ITS | Clinical Summary ---
Author Organization [facility] Address [address] [place] [address] Care Team Providers Care Scale Adjuster Name Role Phone Unavailable Primary Care Provider Unavailabl e Source Comments [facility],non-owned Affiliates and Associated Physician Practices is amultiple site organization consisting of ambulatory clinics and hospital sitesin [place], [place], [place] and [place]. This disclosure is being madepursuant to the Care Everywhere program and may not contain all information available regarding this patient. Last updated 18.[facility] Encounters Date Type Department Care Team Description 10/09/2024 Lab Requisition [facility] - Pathology Lab [address] [place] [address] Edgar Jacobson MD Illness, unspecified from Last 3 Months Social History Tobacco Use Types Packs/Day Years Used Date Smoking Tobacco: Never Assessed Sex and Gender Information Value Date Recorded Sex Assigned at Not on file Gender Identity Not on file Sexual Orientation Not on file Plan of Treatment Health Maintenance Due Date Last Done Comments BONE DENSITY TESTING 1950 COLOGUARD (AGES 45-75) - COL ON CA SCREENING 1950 COLON MONITORING 1950 COLONOSCOPY - COLON CA SCREENING 1950 CT COLONOGRAPHY - COLON CA SCREENING 1950 Colorectal Cancer Screening 1950 FIT - COLON CA SCREENING 1950 FLEX SIG - COLON CA SCREENING 1950 LIPID TESTING 1950 MAMMOGRAM 1950 HEPATITIS C SCREENING 12/10/1967 DTAP/TDAP/TD VACCINES (1 - Tdap) 1968 PNEUMOCOCCAL VACCINE 50+ (1 of 1 - PCV) 12/15/1999 ZOSTER VACCINE (1 of 2) 12/15/1999 COVID-19 VACCINE ( - 2023-2 5 season) 2024 INFLUENZA VACCINE (#1) 2024 DEPRESSION SCREENING 07/31/2024 MEDICARE AWV CALENDAR YEAR 2024 Respiratory Syncytial Virus (RSV) Vaccine Pt: or over 60 yrs (1 - 1-dose 75+ series) 2024 HEPATITIS B VACCINE Aged Out No longe r eligible based on patient's age to complete this topic HIB VACCINE Aged Out No longer eligi ble based on patient's age to complete this topic HPV VACCINE Aged Out No longer eligi ble based on patient's age to complete this topic MENINGOCOCCAL (Group B) VACC INE SHARED DECISION-MAKING Aged Out No longer eligibl e based on patient's age to complete this topic MENINGOCOCCAL GROUPS A/C/Y/W VACCINE Aged Out No longer eligible b ased on patient's age to complete this topic Procedures Procedure Name Priority Date/Time Associated Diagnosis Comments PATHOLOGY TISSUE Routine 10/07/2024 10:1 4 AM CDT Illness, unspecified from Last 3 Months Results * PATHOLOGY TISSUE (10/07/2024 10:14 AM CDT) Case Report Surgical Pathology Report Case: [id number] Authorizing Provider: Edgar Jacobson MD Collected: 10/07/2024 10:14 AM Ordering Location: [facility] - Received: 10/09/2024 04:51 PM Pathology Lab Pathologist: Jesusita Palmer MD Specimen: Breast Biopsy 10/10/2024 4:33 PM CDT [facility] Final Diagnosis Breast, left 10 o'clock 10 cm from nipple, biopsy (A): - Abundant detached atypical breast epithelium, see comment 10/10/2024 4:33 PM CDT [facility] Microscopic Description and Comment Sections show predominantly blood with numerous admixed epithelial cells. These cells show monotony with diffuse ER, [place] and GATA3 staining, and are negative for [...] best classified on excision. 10/10/2024 4:33 PM CDT [facility] Clinical History The patient is a 73-year-old woman with a history of uterine and colon carcinoma. She now has a new spiculated 4 cm mass centered in the upper inner quadrant of the left breast. 10/10/2024 4:33 PM CDT [facility] Materials Received Received are 13 slide(s) and 1 block labeled [id number] along with a copy of the outside pathology report. The materials [place] [address]. All original materials are returned to the referring institution, along with a copy of our final report. 10/10/2024 4:33 PM CDT [facility] Pathologist Location at [facility] 10/10/2024 4:33 PM CDT [facility] Disclaimer The performance characteristics of all immunohistochemical and indirect immunofluorescence stains (if any) cited in this report were determined by the Histopathology Laboratory of [facility]. Some of these tests were developed by [...] the attending (teaching) pathologist. 10/10/2024 4:33 PM CDT [facility] Embedded Images 10/10/2024 4:33 PM CDT [facility] Pathology/Cytolo gy BIOPSY OF BREAST / Unknown 10/07/2024 10:14 AM CDT 10/09/2024 4:51 PM CDT Edgar Jacobson MD LAB - PATHOLOGY/CYTO LOGY ORDERABLES [facility] [address] [place] [address], [facility] [phone] from Last 3 Months Ana Rico Personal/Family Self 1950
== END 2024-10-18 11:01 | disposition home or self-care (01) ==
LOC: ANHSURGERY 11:06
PROVIDERS: Anesthesiology; PCP Family Medicine; Visit Provider Surgery
DX: Z01.818 Encounter for other preprocedural examination (principal); I10 Essential (primary) hypertension; R94.31 Abnormal electrocardiogram [ECG] [EKG]
CPT/HCPCS: 36415; 80048; 93005

== ENCOUNTER 2024-10-23 00:31 | Day surgery (SDC) | payer MEDICARE, SELFPAY ==
--- NOTE | 2024-10-16 13:25 | PC.NURSE ---
Report to the Outpatient Waiting Room, entrance under the green pavilion located off [facility], at time __9 AM on date _10/23/24 . Planned Procedure Time: ___11 AM .? NUCLEAR MED AT 1015 Time changes happen often and if your time is changed the preop area will call you the afternoon before. - You and your visitor will be asked to self-screen and do not enter if you have any COVID symptoms. Please call surgeon if you need to reschedule. - A mask is optional within the hospital at this time. Patients may have clear liquids (water, carbonated beverages, clear teas, apple juice) until 3 hours prior to surgery ( 8 AM) with a maximum of 20 ounces. - No food from midnight until time of surgery and no smoking, or chewing tobacco (or any form of nicotine). No chewing gum, candy or mints. - Take only the following medications with a SIP of water on the morning of surgery: ___PAROXETINE DO NOT STOP ANY OF YOUR OTHER PRESCRIPTION MEDICATIONS PRIOR TO SURGERY EXCEPT THE FOLLOWING Hold all vitamins and supplements for 3 days per anesthesiologist. 10/19/24 Medications to discontinue per physician NONE Please no make-up, nail belarusian, hairspray, perfume, deodorant, or body powder the day of surgery.? No jewelry (including any body piercings) or valuables the day of surgery, leave them at home.? Please take a shower or bath the night before, or the morning of, surgery with an antibacterial soap.? Wear comfortable, loose fitting clothing.? Children are encouraged to wear pajamas. - Jewelry must be removed prior to entering the operating room.? Rings and piercings that are not removed may be cut off. - The hospital will not accept responsibility for valuables.? - Please leave all valuables, including medications, at home the day of surgery. If you are going home after surgery, a licensed racing car driver must drive you home.? - NO public transportation without another adult if you receive anesthesia. - We recommend that an adult stay with you for 24 hours following discharge. - We also recommend that you do not drive, make important decision, drink alcoholic beverages, or take any drugs that were not prescribed by your health care provider for at least 24 hours after your discharge time. Follow any additional instructions given to you from your surgeon. Telephone instructions given to ___PATIENT and asked if any additional questions and then verbalized understanding. Patient advised to call surgeon office or pre surgery nurse liaison [phone] if any additional questions.
[2024-10-16 13:46] VITALS: BMI 34.7
[2024-10-23] VITALS (8 sets, daily range): BP systolic 116–147; BP diastolic 56–87; PULSE 69–77; RESP 12–16; TEMP 35.9–36.1; O2SAT 92–99
--- NOTE | ~2024-10-23 | NM_ITS ---
EXAMINATION: NM sentinel node inject only DATE: 10/23/2024 14:31 INDICATION: Left breast cancer TECHNIQUE: 1.045 mCi Tc-99m filtered sulfur colloid was injected into the left breast by Dr. Jenkins. No images were obtained. IMPRESSION: 1. Left breast sentinel lymph node radiopharmaceutical injection. Reviewed, dictated and finalized at location A.
--- OUTSIDE RECORDS SUMMARY | 2024-10-23 00:34 | XMS_ITS | Clinical Summary ---
[facility] Address [address] [facility] [place] [address] Care Team Providers Care Disk And Tape Machine Tender Name Role Phone Unavailable Primary Care [...] Description 10/28/2024 1:30 PM CDT Office Visit [facility] - August [address] [address] James Swain MD [address] [place] [address] Health Maintenance Due Date Last [...] - 1-dose 75+ series) 2024 Insurance [facility] [id number]
--- OUTSIDE RECORDS SUMMARY | 2024-10-23 00:34 | XMS_ITS | Clinical Summary ---
Author Organization [facility] Address [address] [place] [address] Care Team Providers Care Waste Collector Name Role Phone Unavailable Primary Care Provider Unavailabl e Source Comments [facility],non-owned Affiliates and Associated Physician Practices is amultiple site organization consisting of ambulatory clinics and hospital sitesin [place], [place], [place] and [place]. This disclosure is being madepursuant to the Care Everywhere program and may not contain all information available regarding this patient. Last updated 18.[facility] Encounters Date Type Department Care Team Description 10/09/2024 Lab Requisition [facility] - Pathology Lab [address] [place] [address] Edgar Jacobson MD Illness, unspecified [...] CDT) Case Report Surgical Pathology Report Case: [id number] Authorizing Provider: Edgar Jacobson MD Collected: 10/07/2024 10:14 AM Ordering Location: [facility] - Received: 10/09/2024 04:51 PM Pathology Lab Pathologist: Jesusita Palmer MD Specimen: Breast Biopsy 10/10/2024 4:33 PM CDT [facility] Final Diagnosis Breast, left 10 o'clock 10 cm from nipple, biopsy (A): - Abundant detached atypical breast epithelium, see comment 10/10/2024 4:33 PM CDT [facility] Microscopic Description and Comment Sections [...] are 13 slide(s) and 1 block labeled [id number] along with a copy of the outside pathology report. [place] [address]. All original materials are returned to the referring institution, along with a copy of our final report. 10/10/2024 4:33 PM CDT [facility] Pathologist Location at [facility] 10/10/2024 4:33 PM CDT [facility] Disclaimer The performance characteristics of all immunohistochemical and indirect immunofluorescence stains (if any) cited in this report were determined by the Histopathology Laboratory of [facility]. Some of these tests were developed by [...] Jacobson MD LAB - PATHOLOGY/CYTO LOGY ORDERABLES [facility] LAB [address] [place] [address], [facility] [phone] from Last 3 Months Ana Rico Personal/Family Self 1950
--- OUTSIDE RECORDS SUMMARY | 2024-10-23 00:34 | XMS_ITS | Clinical Summary ---
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
--- OUTSIDE RECORDS SUMMARY | 2024-10-23 00:34 | XMS_ITS | Encounter Summary ---
Author Organization [facility] Address [address] [place] [address] Care Team Providers Care Door Maker Name Role Phone Unavailable Primary Care Provider Unavailabl e Encounter Details Date Type Department Care Team (Late st Contact Info) Description 10/09/2024 Lab Requisition [facility] - Pathology Lab [address] [place] [id number] Edgar Jacobson MD [address] [address] Illness, unspecified Social History Tobacco [...] CDT) Case Report Surgical Pathology Report Case: [id number] Authorizing Provider: Edgar Jacobson MD Collected: 10/07/2024 10:14 AM Ordering Location: [facility] - Received: 10/09/2024 04:51 PM [...] These cells show monotony with diffuse ER, ND and GATA3 staining, and are negative for [...] best classified on excision. 10/10/2024 4:33 PM [facility] Clinical History The patient is a 73-year-old woman with a history of uterine and colon carcinoma. She now has a new spiculated 4 cm mass centered in the upper inner quadrant of the left breast. 10/10/2024 4:33 PM [facility] Materials Received Received are 13 slide(s) and 1 block labeled [id number] along with a copy of the outside pathology report. [place] [address]. All original materials are returned to the referring institution, along with a copy of our final report. 10/10/2024 4:33 PM [facility] Pathologist Location at [facility] 10/10/2024 4:33 PM [facility] Disclaimer The performance characteristics of all immunohistochemical and indirect immunofluorescence stains (if any) cited in this report were determined by the Histopathology Laboratory of [facility]. Some of these tests were developed by [...] the attending (teaching) pathologist. 10/10/2024 4:33 PM [facility] Embedded Images 10/10/2024 4:33 PM [facility] Pathology/Cytolo gy BIOPSY OF BREAST / Unknown 10/07/2024 10:14 AM CDT 10/09/2024 4:51 PM CDT Edgar Jacobson MD LAB - PATHOLOGY/CYTO LOGY ORDERABLES Performing Organization Address City/State/[facility] Co de Phone Number [facility] [address] [phone] documented in this encounter Visit Diagnoses Diagnosis Illness, unspecified documented in this encounter
[2024-10-23] MEDS: ACETAMINOPHEN 500 MG TABLET 1000 MG PO (09:00)
[2024-10-23] MEDS: LACTATED RINGERS 1,000 ML 30 ML IV CONT (09:00)
[2024-10-23] MEDS: LIDOCAINE/PRILOCAINE CREAM 2.5-2.5% TUBE 1 EACH TOPICAL (09:00)
--- NOTE | 2024-10-23 09:57 | WPDHPUPDATE1 ---
History and Physical Update Update Date/Time: 10/23/24 09:57 - left breast lumpectomy with left sentinel lymph node biopsy, lymphoseek injection, methylene blue injection for sentinel lymph node mapping and possible adjacent tissue transfer, removal of mediport. History and Physical has been reviewed, including an updated exam of the patient. There are NO changes in the patient's condition. Risks, benefits, and alternatives have been discussed and questions answered. Patient agrees to proceed with procedure.
--- NOTE | 2024-10-23 10:09 | P.PNAN_ITS ---
Anes - Initial Pre Proc Eval Procedure: Operation Date: 10/23/24 11:00 Proposed Procedures p Left Breast Lumpectomy with Left Gerlach Lymph Node Biopsy, Lymphoseek Injection, Methylene Blue Injection for Gerlach Node Mapping, Possible Adjacent Tissue Transfer - Blanca Jenkins MD s MediPort Removal - Blanca Jenkins MD Date/Time: 10/23/24 10:09 Surgeon: Blanca Jenkins MD Pre Op Diagnosis: mass of left breast Patient Data Age: 73 Gender: F Height: 1.57 m Weight: 86.2 kg Allergies Allergy/AdvReac Type Severity Reaction Status Date / Time No Known Allergies Allergy Verified 10/21/24 13:32 Home Medications ?Medication ?Instructions ?Recorded ?Confirmed ?Type lorazepam 0.5 mg tablet 0.5 mg PO BID PRN anxiety #20 tabs 04/09/24 10/16/24 Rx furosemide 40 mg tablet See Rx Instructions .Route 08/19/24 10/16/24 Rx .COMPLEX #100 tabs lisinopril 20 mg tablet See Rx Instructions .Route 08/19/24 10/16/24 Rx .COMPLEX #100 tabs omega 7-gaz-ekf-fish oil 1,000 mg 1 cap PO DAILY 10/16/24 10/16/24 History (120 mg-180 mg) capsule (Fish Oil) paroxetine HCl 20 mg tablet 20 mg PO QAM 10/16/24 10/16/24 History vitamins A,C,U-hkmn-adnezn 2,148 2 tablet PO DAILY 10/16/24 10/16/24 History mcg-113 mg-45 mg-17.4 mg tablet (Eye Multivitamin) hydrochlorothiazide 12.5 mg capsule 12.5 mg PO DAILY #90 caps 10/18/24 Rx potassium chloride 10 mEq See Rx Instructions .Route 10/18/24 Rx tablet,extended release(part/cryst) .COMPLEX #180 tabs Patient hx anesthesia problems: none Family hx anesthesia problems: none Results Review: All pre-operative results and documents have been reviewed as part of the pre- operative evaluation. [facility] Past Medical History Medical History History of small bowel obstruction Panic attacks Claustrophobia Obstructive sleep apnea Anxiety and depression Essential hypertension Peripheral neuropathy due to chemotherapy Pre-diabetes Colon cancer (~2011) Rectal cancer Uterus cancer (~2006) Treated with radiation therapy that subsequently caused developing colon cancer in 2011 Surgical History Surgical History History of total abdominal hysterectomy for endometrial cancer History of tubal ligation (~1972) History of insertion of tunneled central venous catheter (CVC) with port (~2011) Left subclavian History of reversal of ileostomy (~2011) Knee joint replacement status (~2014) Complicated by MSSA infection Hx of cholecystectomy (~1994) History of colon resection (~2011) Low anterior resection of the colorectum with ileostomy with subsequent takedown 2012 Family History Family History Mother Dementia Age older than 85 years Father Diabetes mellitus Coronary artery disease Social History Social History Social History: Patient is . She had 2 children. 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 Spiritual care concerns: No Anes - Eval Final PreProcedure Day of Procedure 10/23/24 10:09 Patient weight: obese Lungs: normal air movement Airway: Mallampati scale and special considerations (Upper edentulous, partial lower w several teeth remaining. ) Neurological: alert and oriented Last oral intake: >/= 8 hours ASA classification: III Emergent: no Anesthetic plan: proceed Anesthesia type and monitoring: general LMA and standard monitoring Results Review: All pre-operative results and documents have been reviewed as part of the pre- operative evaluation. HTN, hx of colon/uterine/now breast ca. Pt w overall good functional status, limited by knee/joint pain, no cp or sob. Informed Consent: The patient's anesthetic plan and its attendant risks and benefits were discussed with the patient/family/POA. Questions were solicited and answers provided to the satisfaction of the patient/family/POA.
[2024-10-23] MEDS: ceFAZolin 2 GM/D5W 50 ML 2 GM/50 ML BAG IVPB (10:45)
[2024-10-23] MEDS: BUPIVACAINE/EPINEPHRINE 0.5% 30 ML VIAL INFILTRATE (11:13)
[2024-10-23] MEDS: METHYLENE BLUE 0.5% INJ 10 ML AMPULE 20 ML IRRIGATION (11:15)
--- NOTE | 2024-10-23 13:00 | P.OP_ITS ---
Procedure Note - Detailed Date of Procedure 10/23/24 Pre-op Diagnosis Left breast mass BIRADS 5, indeterminate core needle biopsy Post-op Diagnosis Same Procedure Performed 1. Left lumpectomy 2. Left axillary sentinel lymph node biopsy 3. Injection of Lymphoseek for sentinel lymph node mapping 4. Injection of methylene blue for dual tracing 5. Removal of MediPort Surgeon Blanca Jenkins MD Anesthesia General Description of Procedure Patient was identified in the pre-operative area and brought to the OR suite. She underwent Lymphoseek injection in nuclear Medicine which I performed myself for sentinel lymph node mapping. She was then brought to the operating room suite. She was laid supine in the operating table and sequential compression devices were applied. General anesthesia was induced without difficulties. The left chest and axilla were prepped and draped in a sterile fashion. Diluted met hylene blue was then injected in the periareolar area of the left breast in the subdermal plane for dual tracing. Attention was then turned to the left axilla. The Neoprobe was used to identify the area of highest radioactivity and a small incision was made overlying this area. Dissection was carried down through the subcutaneous tissue and the clavipectoral fascia was encountered and opened. A hot and blue lymph node was identified and gently grasped with a [place]. The node was completely excised using the LigaSure device. The count for the sentinel lymph node 1 was 62,582. The sentinel lymph node 1 was sent to pathology as a fresh specimen. The Neoprobe was again used to scan the axilla and no additional nodes that were at least 10% of the initial count were identified. The wound was irrigated with saline hemostasis was assured. The clavipectoral fascia was approximated with a 3-0 Vicryl in a running fashion. The deep dermal layer was then approximated using interrupted 3-0 Vicryl followed by 4-0 Monocryl in a subcuticular fashion for the skin. Dermabond was applied to the incision. Attention was then turned to the left superior chest MediPort. An incision was made overlying the MediPort at the previous incision site and dissection was carried down through the subcutaneous tissue until the capsule of the MediPort was encounter. This was carefully opened and the MediPort was grasped and gently exteriorized. One suture which was identified was removed on the right side of the port. A U-stitch was placed around the catheter entry point into the subcutaneous tissue and this was cinched tight as the MediPort and catheter were removed. Pressure was held under in the infraclavicular area. I did not proceed to remove the capsule of the MediPort to improve healing and decrease the risk of a cyst forming. The cavity was then irrigated with saline hemostasis was assured. The deep dermal layer was closed with interrupted 3-0 Vicryl followed by 4-0 Monocryl in a subcuticular fashion for the skin. Dermabond was applied to the skin incision. Attention was then turned to the left breast mass. A superior incision was made overlying the breast mass and dissection was carried down through the subcutaneous tissue into the breast tissue. The tumor was identified with palpation, and a rim of normal breast tissue was excised along with the tumor as our lumpectomy specimen. Once the specimen was completely excised, it was oriented using surgical paint according to product test specialist instructions. The specimen was placed in the faxitron and 2 radiographs were obtained and sent to Radiology for radiographic confirmation of Tumor and biopsy marker within the specimen. The lumpectomy specimen was then sent to pathology as a fresh specimen. Once the radiographic confirmation was received, the wound was irrigated with saline and hemostasis was assured. The deep dermal layer was approximated using interrupted 3-0 vicryl followed by 4-0 monocryl for the skin. Dermabond was applied followed by a surgical bra. Patient was awoken from anesthesia and taken to the recovery area in stable condition. All needles, instruments and sponge counts were correct as reported by the operating room staff. Patient tolerated the procedure well with no immediate complications. Estimated Blood Loss 5 Pathology Yes Complications No immediate complications Condition Stable Disposition PACU [facility] Billing Surgery - Charge Forward: Surgery Billing ([id number], [id number] - 82, [id number] - 74, [id number] - 37, [id number] - 55)
[2024-10-23] MEDS: fentaNYL CITRATE INJ (*CRX) 100 MCG/2 ML VIAL 25 MCG IV PUSH ×4 (13:40→13:46)
== END 2024-10-23 14:51 | disposition home or self-care (01) ==
PROVIDERS: PCP Family Medicine; Visit Provider Surgery
PROC: (CPT 19301; principal; 2024-10-23 11:00)
PROC: (CPT 36589; 2024-10-23 11:00)
DX: C50.912 Malignant neoplasm of unspecified site of left female breast (principal); I10 Essential (primary) hypertension; R73.03 Prediabetes; G47.33 Obstructive sleep apnea (adult) (pediatric); F41.0 Panic disorder [episodic paroxysmal anxiety]; F40.240 Claustrophobia; F41.8 Other specified anxiety disorders; G62.0 Drug-induced polyneuropathy; E66.9 Obesity, unspecified; Z68.34 Body mass index [BMI] 34.0-34.9, adult; Z98.890 Other specified postprocedural states; Z98.84 Bariatric surgery status; Z90.49 Acquired absence of other specified parts of digestive tract; Z92.3 Personal history of irradiation; Z92.21 Personal history of antineoplastic chemotherapy; Z85.038 Personal history of other malignant neoplasm of large intestine; Z85.42 Personal history of malignant neoplasm of other parts of uterus; Z87.19 Personal history of other diseases of the digestive system; Z82.49 Family history of ischemic heart disease and other diseases of the circulatory system
CPT/HCPCS: 19301; 38525; 36590; 38792; 88300; 88304; 88307; 88342; 88360; A9270; A9520; C1713; J0690; J1100; J2003; J2250; J2405; J2704; J3010; J7030; J7120; Q9968

== ENCOUNTER 2024-11-27 14:15 | Outpatient (CLI) | payer MEDICARE, SELFPAY ==
[2024-11-27 14:31] LABS: Kit Draw Collected
--- OUTSIDE RECORDS SUMMARY | 2024-11-27 15:20 | XMS_ITS | Clinical Summary ---
Author Organization [facility] Address [address] [place] [address] Care Team Providers Care Epic Director Name Role Phone Unavailable Primary Care Provider Unavailabl e Source Comments [facility],non-owned Affiliates and Associated Physician Practices is amultiple site organization consisting of ambulatory clinics and hospital sitesin [place], [place], [place] and [place]. This disclosure is being madepursuant to the Care Everywhere program and may not contain all information available regarding this patient. Last updated 18.[facility] Encounters Date Type Department Care Team Description 10/09/2024 Lab Requisition [facility] - Pathology Lab [address] [place] [id number] Edgar Jacobson MD Illness, unspecified from Last 3 Months Social History Tobacco Use Types Packs/Day Years Used Date Smoking Tobacco: Never Assessed Comments Unknown Sex and Gender Information Value Date Recorded Sex Assigned at Not on file Legal Sex Female 4:28 PM CDT Gender Identity Not on file [...] VACCINE (1 of 2) 12/15/1999 COVID-19 VACCINE (1 - 2023-2 5 season) 2024 DEPRESSION SCREENING 07/31/2024 MEDICARE AWV CALENDAR YEAR 2024 Respiratory Syncytial Virus (RSV) Vaccine Pt: or over 60 yrs (1 - 1-dose 75+ series) 2024 INFLUENZA VACCINE (Season Ended) 2025 HEPATITIS B VACCINE Aged Out No longe [...] CDT) Case Report Surgical Pathology Report Case: [id number] Authorizing Provider: Edgar Jacobson MD Collected: 10/07/2024 10:14 AM Ordering Location: [facility] - Received: 10/09/2024 04:51 PM Pathology Lab Pathologist: Jesusita Palmer MD Specimen: Breast Biopsy 10/10/2024 4:33 PM CDT [facility] Final Diagnosis Breast, left 10 o'clock 10 cm from nipple, biopsy (A): - Abundant detached atypical breast epithelium, see comment 10/10/2024 4:33 PM CDT [facility] Microscopic Description and Comment Sections show predominantly blood with numerous admixed epithelial cells. These cells show monotony with diffuse ER, NC and GATA3 staining, and are negative for [...] best classified on excision. 10/10/2024 4:33 PM T [facility] Clinical History The patient is a 73-year-old woman with a history of uterine and colon carcinoma. She now has a new spiculated 4 cm mass centered in the upper inner quadrant of the left breast. 10/10/2024 4:33 PM T [facility] Materials Received Received are 13 slide(s) and 1 block labeled [id number] along with a copy of the outside pathology report[place] [address]. All original materials are returned to the referring institution, along with a copy of our final report. 10/10/2024 4:33 PM T [facility] Pathologist Location at [facility] 10/10/2024 4:33 PM T [facility] Disclaimer The performance characteristics of all immunohistochemical and indirect immunofluorescence stains (if any) cited in this report were determined by the Histopathology Laboratory of [facility]. Some of these tests were developed [...] the attending (teaching) pathologist. 10/10/2024 4:33 PM T [facility] Embedded Images 10/10/2024 4:33 PM T [facility] Pathology/Cytolo gy BIOPSY OF BREAST / Unknown 10/07/2024 10:14 AM CDT 10/09/2024 4:51 PM CDT us Edgar Jacobson MD LAB - PATHOLOGY/CYTOLOGY ORDERAB LES Final Result [facility] [address] [place] [address], [facility] [phone] from Last 3 Months Insurance [facility] MANAGED MEDICARE ADV [facility] MANAGED MEDICARE ADV SELF PAY NO INSURANCE Member Subscriber Plan / Payer (Ef fective for All Dates) Name:Ana Evans Member ID:Not on file Relation to Subscriber:Not on file Name:ANA EVANS Subscriber ID:Not on file (Home) Address: [address] [place] [address] Payer ID:Not on file Group ID:Not on file Type:Self Pay Address: [place], [place]
--- OUTSIDE RECORDS SUMMARY | 2024-11-27 15:20 | XMS_ITS | Encounter Summary ---
Author Organization [facility] Address [address] [facility] [place] [address] Care Team Providers Care Patent Engineer Name Role Phone Unavailable Primary Care Provider Unavailabl e Encounter Details Date Type Department Care Team (Late st Contact Info) Description 10/09/2024 Lab Requisition [facility] - Pathology Lab [address] [place] [address] Edgar Jacobson MD [address] [address] Illness, unspecified Social History Tobacco [...] CDT) Case Report Surgical Pathology Report Case: [id number] Authorizing Provider: Edgar Jacobson MD Collected: 10/07/2024 10:14 AM Ordering Location: [facility] - Received: 10/09/2024 04:51 PM [...] These cells show monotony with diffuse ER, [place] and GATA3 staining, and are negative for [...] best classified on excision. 10/10/2024 4:33 PM [facility] Clinical History The patient is a 73-year-old woman with a history of uterine and colon carcinoma. She now has a new spiculated 4 cm mass centered in the upper inner quadrant of the left breast. 10/10/2024 4:33 PM [facility] Materials Received Received are 13 slide(s) and 1 block labeled [id number] along with a copy of the outside pathology report. [place] [address]. All original materials are returned to the referring institution, along with a copy of our final report. 10/10/2024 4:33 PM [facility] Pathologist Location at [facility] 10/10/2024 4:33 PM [facility] Disclaimer The performance characteristics [...] the attending (teaching) pathologist. 10/10/2024 4:33 PM [facility] Embedded Images 10/10/2024 4:33 PM [facility] Pathology/Cytolo gy BIOPSY OF BREAST / Unknown 10/07/2024 10:14 AM CDT 10/09/2024 4:51 PM CDT us Edgar Jacobson MD LAB - PATHOLOGY/CYTOLOGY ORDERAB LES Final Result [facility] [address] [phone] documented in this encounter Visit Diagnoses Diagnosis Illness, unspecified documented in this encounter
--- OUTSIDE RECORDS SUMMARY | 2024-11-27 15:20 | XMS_ITS | Encounter Summary ---
Author Organization [facility] [place] [facility] Address [address] [place] [address] Care Team Providers Care Surveillance Director Name Role Phone Unavailable Primary Care Provider Unavailabl e Reason for Visit * Reason Comments Establish Care Cancer Encounter Details Date Type Department Care Team (Late st Contact Info) Description 11/27/2024 1:30 PM CDT Office Visit [facility] Oncology and Hematology - August [address] [facility] [address] [place] [address] James Swain MD [address] [place] [address] Malignant neoplasm of left breast in female, estrogen receptor positive, unspecified site of breast (CMS/HCC) (Primary Dx) Social History Tobacco Use Types Packs/Day Years Used Date Smoking Tobacco: Never Smokeless Tobacco: Never Tobacco Cessation:Counseling Given: Not Answered Alcohol Use Standard Drinks/Week Comments Never 0 (1 standard drink = 0.6 oz pur e alcohol) Comments Unknown Sex and Gender Information Value Date Recorded Sex Assigned at Not on file Legal Sex Female 4:16 PM CDT Gender Identity Not on file Sexual Orientation Not on file documented as of this encounter Last Filed Vital Signs Vital Sign Reading Time Taken Comments Blood Pressure 130/79 11/27/2024 1:25 PM CDT Pulse 62 11/27/2024 1:23 PM CDT Temperature 35.8 C (96.4 F) 11/27/2024 1:23 PM CDT Respiratory Rate 15 11/27/2024 1:23 PM CDT Oxygen Saturation 94% 11/27/2024 1:23 PM CDT Inhaled Oxygen Concentration - - Weight 83.2 kg (183 lb 6.4 oz) 11/27/2024 1:23 P M CDT Height 157.5 cm (5' 2 ) 11/27/2024 1:23 PM CDT Body Mass Index 33.54 11/27/2024 1:23 PM CDT documented in this encounter Progress Notes * James Swain MD - 11/27/2024 2:08 PM CDT Hematology-oncology consult Note Requesting Physician Blanca Jenkins MD Primary Care Physician No primary care provider on file. Problem list There is no problem list on file for this patient. Previous TREATMENT ? Measurable Disease ? Reason for Visit Ana Rico is a 73 y.o. female who was referred for consultation for breast cancer. History of present illness This is a 73-year-old obese female with history of endometrial cancer status post complete hysterectomy in 2004 along with history of colon cancer in 2007 status post surgery and then adjuvant chemotherapy. Patient noticed left breast lump on herself breast examination. She underwent diagnostic mammogram in August 2024 that showed new spiculated mass in the upper inner quadrant of the left breast. Her biopsy came back positive for invasive ductal carcinoma ER/NC positive and HER2/patricia negative. She underwent lumpectomy with sentinel lymph node biopsy on October 23, 2024 revealed 4 x 3.5 x 2.8 cm grade 2 ER/NC positive HER2/patricia negative moderately differentiated invasive ductal carcinoma with 0/1 lymph node positive. She denies any chest pain or shortness of breath. Denies any bone pain. She has lost almost 20 pound weight intentionally. Denies any other new complaints. Past Medical History Past Medical History: Diagnosis Date Depression Hypertension History of endometrial carcinoma diagnosed in 2004 status post radiation therapy after surgery. History of colon cancer status post surgery and then adjuvant chemotherapy in 2007. Surgical History Past Surgical History: Procedure Laterality Date HX CHOLECYSTECTOMY HX EYE SURGERY HX HYSTERECTOMY HX LAPAROSCOPIC BOWEL RESECTION Medications Current Outpatient Medications Medication Sig Dispense Refill potassium CHLORIDE (KLOR-CON M10) 10 mEq Extended Release tablet Take 10 mEq by mouth daily. lisinopriL (PRINIVIL) 20 mg tablet Take 20 mg by mouth daily. hydroCHLOROthiazide (MICROZIDE) 12.5 mg capsule Take 12.5 mg by mouth daily. furosemide (LASIX) 40 mg tablet Take 40 mg by mouth daily. docusate sodium (STOOL SOFTENER ORAL) Take by mouth one time as needed for Other (See Comment) (constipation). paroxetine HCl (PAXIL ORAL) Take 20 mg by mouth daily. vit C/E/cuperic/zinc/lutein (PRESERVISION LUTEIN ORAL) Take by mouth. Fish Oil-[place]-3 Fatty Acids 300-500 mg Capsule Take by mouth daily. No current facility-administered medications for this visit. Allergies No Known Allergies Immunizations: There is no immunization history on file for this patient. Family History Family History Problem Relation Name Age of Onset Heart Disease Father No Known Problems Mother Other Problems (epilepsy) Brother Heart Disease Child Heart Disease Child Social History Social History Tobacco Use Smoking status: Never Smokeless tobacco: Never Substance Use Topics Alcohol use: Never Review of Systems Constitutional: Patient did not mention fever; no night sweats; no anorexia; no weight loss; no fatique NEENT: Patient did not mention headache; no change in vision; no change in hearing; no sore throat;no dysphagia Respiratory: Patient did not mention shortness of breath; no pleuritic chest pain; no cough; no hemoptysis Cardiac: Patient did not mention cardiac-like chest pain; no palpitations; no orthopnea; no PND; noDOE Breasts: Patient did not mention tenderness; no masses GI: Patient did not mention abdominal pain; no nausea; no vomiting; no diarrhea; no hematochezia; no melena : Patient did not mention dysuria; no frequency; no hesitancy; no hematuria [employer]: Musculosketetal: Patient did not mention bone pain; no arthralgia; no joint swelling; no myalgia; Skin: Patient did not mention pruritis; no rash; no petechiae; no ecchymoses Endocrine: Patient did not mention polydipsia; no polyuria; no unusual weight gain Neuro: Patient did not mention headache; no change in vision; no sensory changes; no muscle weakness; no confusion; no seizures Psych: Patient did not mention anxiety; no depression; Physical Exam Vitals: As per nursing note Constitutional: Well developed, well nourished, no acute distress, non-toxic appearance Teeth and gum. No signs of infection or swelling. Eyes: PERRL, conjunctiva normal HEENT: Atraumatic, external ears normal, nose normal, oropharynx moist, no pharyngeal exudates. no sinus tenderness Neck- normal range of motion, no tenderness, supple Respiratory: No respiratory distress, normal breath sounds, no rales, no wheezing Breasts: Postoperative changes and scarring in the left breast without any masses and lymphadenopathy. Cardiovascular: Normal rate, normal rhythm, no murmurs, no gallops, no rubs GI: Soft, nondistended, normal bowel sounds, nontender, no splenomegaly, no hepatomegaly, no mass, no rebound, no guarding : No costovertebral angle tenderness Musculoskeletal: No edema, no tenderness, no deformities. Back- no tenderness Integument: Well hydrated, no rash, Digits and nails inspection normal Lymphatic: No lymphadenopathy noted Neurologic: Alert & oriented x 3, CN 2-12 normal, normal motor function, normal sensory function, no focal deficits noted Psychiatric: Speech and behavior appropriate ? labs No results found for this or any previous visit (from the past 24 hours). Pathology ? Imaging & Other Studies Performance Status? ECOG performance status 1 Assessment / Plan: ? T2 N1 M0 moderately differentiated invasive ductal carcinoma of the left breast status post left-sided lumpectomy and sentinel lymph node sampling on October 23, 2024. Tumor was 4 x 3.5 x 2.8 cm grade 2 ER NC positive and HER2/patricia negative. 0/1 lymph node positive. Patient has a history of endometrial carcinoma diagnosed in 2004 status post hysterectomy and adjuvant radiation therapy. She also has a history of colon cancer status post colectomy in 2007 and adjuvant chemotherapy. Patient is not recovering well from the surgery. I have discussed the management of breast cancer in multimodality approach. Due to the size of the tumor I will order the Oncotype DX recurrence score. She has already seen by the radiation oncologist. I will also order [employer] ration sequencing due to history of multiple cancers in the past. I will discuss the finding of those results in 2 weeks with her. After completion of radiation therapy treatment she will start endocrine therapy with anastrozole. I have answered all the questions to patient satisfaction. Bone health. Will order bone density testing prior to the start of endocrine therapy. Hypertension. Patient is on lisinopril and hydrochlorothiazide. Thank you very much for allowing me to participate in Ana Rico's evaluation and management. Please feel free to contact if I can be of any further assistance in your patient???s care requiring hematology or oncology evaluation. Sincerely, ? ? James Swain M.D. cell TOBACCO COUNSELING She is not a tobacco/nicotine user. James Swain MD ,11/27/2024 2:09 PM ? Total time spent 60 minutes, two third of the total time spent counseling patient [id number]. CC:?Blanca Jenkins MD documented in this encounter Miscellaneous Notes * Addendum Note - Gilmer Nuno - 11/27/2024 2:26 PM CDTAddended by: GILMER NUNO on: 11/27/2024 02:26 PM Modules accepted: Orders documented in this encounter Plan of Treatment Upcoming Encounters Date Type Department Care Team (Late st Contact Info) Description 12/11/2024 4:30 PM CDT Telephone Check Up [facility] Oncology and Hematology - August [address] [address] James Swain MD [address] [place] [address] Pending Results Name Type Priority Associated Diagnoses Date /Time [facility] XT DNA AND RNA Lab Routine Malignant neoplasm of left breast in female, estrogen receptor positive, unspecified site of breast (CMS/HCC) 11/27/2024 2:26 PM CDT [facility] XT NORMAL BLOOD Lab Routine Malignant neoplasm of left breast in female, estrogen receptor positive, unspecified site of breast (CMS/HCC) 11/27/2024 2:26 PM CDT Scheduled Orders Name Type Priority Associated Diagnoses Orde r Schedule MISCELLANEOUS LAB TEST Lab Routine Ex pected: 11/27/2024, Expires: 11/27/2025 [facility] XT DNA AND RNA Lab Routine Malignant neoplasm of left breast in female, estrogen receptor positive, unspecified site of breast (CMS/HCC) Expected: 11/27/2024, Expires: 11/27/2025 [facility] XF Lab Routine Malignant neoplasm of left breast in female, estrogen receptor positive, unspecified site of breast (CMS/HCC) Expected: 11/27/2024, Expires: 11/27/2025 [facility] XG CANCERNEXT AND XG+ CANCERNEXT-EXPANDED Lab Routine Malignant neoplasm of left breast in female, estrogen receptor positive, unspecified site of breast (CMS/HCC) Expected: 11/27/2024, Expires: 11/27/2025 [facility] XT DNA AND RNA SOLID TUMOR Lab Routine Malignant neoplasm of left breast in female, estrogen receptor positive, unspecified site of breast (CMS/HCC) Ordered: 11/27/2024 documented as of this encounter Visit Diagnoses Diagnosis Malignant neoplasm of left breast in female, estrogen receptor positive, unspecified site of breast (CMS/HCC)- Primary documented in this encounter
--- OUTSIDE RECORDS SUMMARY | 2024-11-27 15:20 | XMS_ITS | Clinical Summary ---
Author Organization [facility] Address [facility] [place] [address] Care Team Providers Care Baggage Smasher Name Role Phone Unavailable Primary Care Provider Unavailabl e Social History Tobacco Use Types Packs/Day Years Used Date Smoking Tobacco: Never Assessed Comments Unknown Sex and Gender Information Value Date Recorded Sex Assigned at Not on file Legal Sex Female 5:55 PM CLAIM AUDITOR Gender Identity Not on file Sexual Orientation Not on file Plan of Treatment Health Maintenance Due Date Last Done Comments Colorectal Cancer Screening Colonoscopy (10 Years) 1949 Hepatitis C 12/15/1967 DTaP, Tdap and Td Vaccines ( 1 - Tdap) 1968 Mammogram Screening 1989 Pneumococcal Vaccine: 50+ Ye ars (1 of 1 - PCV) 12/15/1999 Zoster Vaccines (1 of 2) 12/15/1999 Dexa Scan (General) 2014 COVID-19 Vaccine (2023-2 5 season) 2024 RSV Immunization or 60+ Years (1 [...]
--- OUTSIDE RECORDS SUMMARY | 2024-11-27 15:20 | XMS_ITS | Clinical Summary ---
Author Organization [facility] Address [address] [place] [address] Care Team Providers Care Apprenticeship Training Representative Name Role Phone Unavailable Primary Care Provider Unavailabl e Allergies No known active allergies Medications potassium CHLORIDE (KLOR-CON M10) 10 mEq Extended Release tablet Take 10 mEq by mouth daily. 10/10/2024 Active lisinopriL (PRINIVIL) 20 mg tablet Take 20 mg by mouth daily. 11/25/2024 Active hydroCHLOROthiaz dolores (MICROZIDE) 12.5 mg capsule Take 12.5 mg by mouth daily. 10/10/2024 Active furosemide (LASIX) 40 mg tablet Take 40 mg by mouth daily. 11/25/2024 Active docusate sodium (STOOL SOFTENER ORAL) Take by mouth one time as needed for Other (See Comment) (constipati on). Active paroxetine HCl (PAXIL ORAL) Take 20 mg by mouth daily. Active vit C/E/cuperic/zinc /lutein (PRESERVISION LUTEIN ORAL) Take by mouth. Active Fish Oil-[place]-3 Fatty Acids 300-500 mg Capsule Take by mouth daily. Active Active Problems No known active problems Encounters Date Type Department Care Team Description 11/27/2024 1:30 PM CDT Office Visit [facility] [address] [place] [address] James Swain MD Malignant neoplasm of left breast in female, estrogen receptor positive, unspecified site of breast (CMS/HCC) (Primary Dx) 10/28/2024 Abstract [facility] [address] [place] [id number] James Swain MD from Last 3 Months Family History Medical History Relation Name Comments epilepsy Brother Heart Disease Child 1 Heart Disease Child 2 Heart Disease Father No Known Problems Mother Relation Name Status Comments Brother Alive Child 1 Alive Child 2 Alive Father Mother Social History Tobacco Use Types Packs/Day Years [...] on file Sexual Orientation Not on file Last Filed Vital Signs Vital Sign Reading [...] Mass Index 33.54 11/27/2024 1:23 PM CDT Plan of Treatment Upcoming Encounters Date Type Department Care Team (Late st Contact Info) Description 12/11/2024 4:30 PM CDT Telephone Check Up [facility] Oncology and Hematology - August [address] [facility] [address] [place] [address] James Swain MD [address] [facility] [address] [place] [address] Health Maintenance Due Date Last [...]
== END 2024-11-27 14:16 | disposition home or self-care (01) ==
PROVIDERS: PCP Family Medicine; Visit Provider Internal Medicine Hematology & Oncology
DX: C50.912 Malignant neoplasm of unspecified site of left female breast (principal)
CPT/HCPCS: 36415

== ENCOUNTER 2025-02-20 16:17 | Outpatient (NON) | payer MEDICARE, SELFPAY ==
--- OUTSIDE RECORDS SUMMARY | 2025-02-20 16:19 | XMS_ITS | Clinical Summary ---
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
--- OUTSIDE RECORDS SUMMARY | 2025-02-20 16:19 | XMS_ITS | Clinical Summary ---
Author Organization [facility] [place] Address [address] [address] Care Team Providers Care Supervisor Claims Name Role Phone Unavailable Primary Care Provider [...] LUTEIN ORAL) Take by mouth. Active Fish Oil-Palisade-3 Fatty Acids 300-500 mg Capsule Take by mouth daily. Active Active Problems No known active problems Encounters Date Type Department Care Team Description 02/12/2025 External Device Data STL ABSTRACTION Provider, Abstract 02/11/2025 External Device Data ST[facility] ABSTRACTION Provider, Abstract 01/14/2025 External Device Data ST[facility] ABSTRACTION Provider, Abstract 12/24/2024 External Device Data STL ABSTRACTION Provider, Abstract 12/19/2024 External Device Data STL ABSTRACTION Provider, Abstract 12/18/2024 External Device Data STL ABSTRACTION Provider, Abstract 12/18/2024 External Device Data STL ABSTRACTION Provider, Abstract 12/17/2024 4:30 PM CDT Telephone Check Up [facility] Oncology and Hematology [facility] [address] [place] [address] James Swain MD 12/17/2024 External Device Data STL ABSTRACTION Provider, Abstract 12/05/2024 Abstract [facility] Oncology and Hematology August [address] [place] [address] James Swain MD 12/03/2024 External Device Data STL ABSTRACTION Provider, Abstract 12/03/2024 External Device Data STL ABSTRACTION Provider, Abstract 12/03/2024 External Device Data STL ABSTRACTION Provider, Abstract 11/27/2024 1:30 PM CDT Office Visit [facility] Oncology and Hematology [facility] [address] [place] [address] James Swain MD Malignant neoplasm of left breast in female, estrogen receptor positive, unspecified site of breast (CMS/HCC) (Primary Dx) from Last 3 Months Family History Medical [...] P M CDT Height 157.5 cm (5' 2) 11/27/2024 1:23 PM CDT Body Mass Index 33.54 11/27/2024 1:23 PM CDT Plan of Treatment Health Maintenance Due Date Last Done Comments DTAP/TDAP/TD VACCINES (1 - Tdap) 1968 COLORECTAL SCREENING 1994 Colorectal Cancer Screening 1994 FIT-DNA Q 3 years 1994 FIT/FOBT Q 1 year 1994 Flex Sig/CT Colonography Q 5 years 1994 PNEUMOCOCCAL VACCINE 50+ YEARS (1 of 1 - PCV) 12/15/19 00 ZOSTER VACCINE (1 of 2) 12/15/1999 OSTEOPOROSIS SCREENING 2014 RSV VACCINE (60+ or ) (1 - 1-dose 75+ series) 2024 INFLUENZA VACCINE (#1) 2025 Procedures Procedure Name Priority Date/Time Associated Diagnosis Comments [facility] CANCERNEXT AND XG+ CANCERNEXT-EXPANDED Routine 12/09/2024 8:33 PM CDT Malignant neoplasm of left breast in female, estrogen receptor positive, unspecified site of breast (CMS/HCC) [facility] XF Routine 12/05/2024 1:49 PM CDT Malignant neoplasm of left breast in female, estrogen receptor positive, unspecified site of breast (CMS/HCC) [facility] X[facility] DNA AND RNA Routine 11/27/2024 2:26 PM CDT Malignant neoplasm of left breast in female, estrogen receptor positive, unspecified site of breast (CMS/HCC) [facility] NORMAL BLOOD Routine 11/27/2024 2:26 PM CDT Malignant neoplasm of left breast in female, estrogen receptor positive, unspecified site of breast (CMS/HCC) [facility] DNA AND RNA SOLID TUMOR Routine 11/27/2024 2:26 PM CDT Malignant neoplasm of left breast in female, estrogen receptor positive, unspecified site of breast (CMS/HCC) from Last 3 Months Results * [facility] XG CANCERNEXT AND XG+ CANCERNEXT-EXPANDED (12/09/2024 8:33 PM CDT) [facility] [email or web address] al-[email or web address].[facility] [employer]/p [id number] [email or web address] [id number] 12/09/2024 8:33 PM CDT [facility] Comment:[facility] link Interpretation Report See Notes 12/09/2024 8:33 PM CDT [facility] Comment: No pathogenic mutations, variants of unknown significance, or gross deletions or duplications were detected. Risk Estimate: low likelihood of variants in the genes analyzed contributing to this individual's clinical history. Genetic counseling is a recommended option for all individuals undergoing genetic testing. Genes Analyzed (39 total): APC, CYRUS, BAP1, BARD1, BMPR1A, BRCA1, BRCA2, BRIP1, CDH1, CDKN2A, CHEK2, FH, FLCN, MET, MLH1, MSH2, MSH6, MUTYH, NF1, NTHL1, PALB2, PMS2, PTEN, RAD51C, RAD51D, SMAD4, STK11, TP53, TSC1, TSC2 and VHL (sequencing and deletion/duplication); AXIN2, HOXB13, MBD4, MSH3, POLD1 and POLE (sequencing only); EPCAM and GREM1 (deletion/duplication only). Overall Interpretation NEGATIVE: No Clinically Significant Variants Detected 12/09/2024 8:33 PM CDT [facility] Genes analyzed APC, CYRUS, BARD1, BMPR1A, BRIP1, CDH1, CDKN2A, CHEK2, EPCAM, MLH1, MSH2, MSH6,MUTYH, PALB2, PMS2, PTEN, RAD51C, RAD51D, SMAD4, STK11, TP53, VHL, FLCN, NF1,BRCA1, BRCA2, FH, TSC1, TSC2, MET, NTHL1, BAP1, GREM1, MSH3, POLD1, POLE,AXIN2, MBD4, HOXB13 12/09/2024 8:33 PM CDT [facility] Blood specimen (specimen) 12/09/2024 8:36 PM CDT us James Swain MD MOLECULAR ORDERABLES Final Resu lt [facility] [address], [address] [place] [address], [facility] [address] [place] [address] * [facility]F (12/05/2024 1:49 PM CDT) Reason for Study To identify mutations relevant to patient's cancer. 12/05/2024 1:49 PM CDT [facility] Genetic Diseases Assessed Cancer 12/05/2024 1:49 PM CDT [facility] Description of Ranges of DNA Sequences Examined 105 gene liquid biopsy 12/05/2024 1:49 PM CDT [facility] Overall Interpretation inconclusive 12/05/2024 1:49 PM CDT [facility] Portal [email or web address] 12/05/2024 1:49 PM CDT [facility] Comment:[facility] link Low Coverage Regions ERRFI1, JAK1, KMT2A, MSH3, SPOP, TERT, TSC2 12/05/2024 1:49 PM CDT [facility] Blood Tumor Mutational [place]iles Note bTMB cannot be calculated due to insufficient circulating tumor DNA. 12/05/2024 1:49 PM CDT [facility] Genomic Variant Note No reportable pathogenic variants were found. 12/05/2024 1:49 PM CDT [facility] Microsatellite Instability Note MSI-High not detected 12/05/2024 1:49 PM CDT [facility] Treatment Implications Note No reportable treatment options found. 12/05/2024 1:49 PM CDT [facility] Blood specimen (specimen) 11/29/2024 11:42 PM CDT Narrative This result has genomic variants that were not included in this document. us James Swain MD MOLECULAR ORDERABLES Final Resu lt Performing Organization Address [facility] Co de Phone Number [facility] [address], [address] [place] [address], [facility] [address] [facility] [address], [address] [place] [address] * [facility] NORMAL BLOOD (11/27/2024 2:26 PM CDT) Pathologist [facility] 11/27/2024 11:01 PM CDT [facility] Comment:See NGS Report for R esults. Blood specimen (specimen) 11/27/2024 2:26 PM CDT 11/27/2024 2:27 PM CDT us James Swain MD MOLECULAR ORDERABLES Final Resu lt Performing Organization Address [facility] de Phone Number [facility] [address] [facility], [address] [place] [address], [facility] [address] [facility], [address] [place] [address] * [facility] DNA AND RNA SOLID TUMOR (11/27/2024 2:26 PM CDT) Pathologist [facility] Reason for Study To identify somatic and germline mutations relevant to patient's cancer. 12/11/2024 7:57 PM CDT [facility] Genetic Diseases Assessed Cancer 12/11/2024 7:57 PM CDT [facility] Description of Ranges of DNA Sequences Examined 648 gene panel 12/11/2024 7:57 PM CDT [facility] Overall Interpretation positive 12/11/2024 7:57 PM CDT [facility] MSI Stable 12/11/2024 7:57 PM CDT [facility] TMB 1.1 m/MB 12/11/2024 7:57 PM CDT [facility] [email or web address] ta [email or web address]/pat [id number] 12/11/2024 7:57 PM CDT [facility] Comment:[facility] link PD-L1 Interpretation by 22C3 negative 12/11/2024 7:57 PM CDT [facility] PD-L1 (22C3) Combined Positive Score <1 12/11/2024 7:57 PM CDT [facility] PD-L1 (22C3) Tumor Proportion Score <1 % 12/11/2024 7:57 PM CDT [facility] Pertinent Negatives ERBB2 (HER2), ESR1 12/11/2024 7:57 PM CDT [facility] Low Coverage Regions KDM5D 12/11/2024 7:57 PM CDT [facility] Therapy Count 4 12/11/2024 7:57 PM CDT [facility] Tempus: Potential Therapy 1 Gene: 8975^PIK3CA^HGNC Variant: p.E542K Match Type: snvIndel Match Type Description: PIK3CA p.E542K Agent: Alpelisib + Fulvestrant Drug Class: Combination (PI3K Inhibitor + Estrogen Receptor Antagonist) Tissue: Breast Cancer Association: Response Evidence Status: Consensus Evidence ID: NCCN KDB Variant: E542K - GOF NCCN Associated Evidence: Consensus, Breast Cancer MSK Associated Evidence: MSK OncoKB, Level 1 Label: FDA On Label FDA Approved?: Yes On label?: Yes 12/11/2024 7:57 PM CDT [facility] Tempus: Potential Therapy 2 Gene: 8975^PIK3CA^HGNC Variant: p.E542K Match Type: snvIndel Match Type Description: PIK3CA p.E542K Agent: Capivasertib + Fulvestrant Drug Class: Combination (Vinson-AKT Inhibitor + Estrogen Receptor Antagonist) Tissue: Breast Cancer Association: Response Evidence Status: Consensus Evidence ID: NCCN KDB Variant: E542K - GOF NCCN Associated Evidence: Consensus, Breast Cancer MSK Associated Evidence: MSK OncoKB, Level 1 Label: FDA On Label FDA Approved?: Yes On label?: Yes 12/11/2024 7:57 PM CDT [facility] Tempus: Potential Therapy 3 Gene: 8975^PIK3CA^HGNC Variant: p.E542K Match Type: snvIndel Match Type Description: PIK3CA p.E542K Agent: Inavolisib + Fulvestrant + Palbociclib Drug Class: Combination (PI3K Inhibitor + Estrogen Receptor Antagonist + CDK4/6 Inhibitor) Tissue: Breast Cancer Association: Response Evidence Status: Consensus Evidence ID: NCCN KDB Variant: Inft-uc-oathgmro NCCN Associated Evidence: Consensus, Breast Cancer MSK Associated Evidence: MSK OncoKB, Level 1 Label: FDA On Label FDA Approved?: Yes On label?: Yes 12/11/2024 7:57 PM CDT [facility] Tempus: Potential Therapy 4 Gene: 8975^PIK3CA^HGNC Variant: p.E542K Match Type: snvIndel Match Type Description: PIK3CA p.E542K Agent: Alpelisib Drug Class: PI3K Inhibitor Tissue: Solid Tumors Association: Response Evidence Status: Clinical research Evidence ID: [id number] Evidence URL: https://www.ncbi.nlm.n ih.gov/pubmed/83046460 Evidence Title: Phosphatidylinositol 3-Kinase -Selective Inhibition With Alpelisib (EBG667) in EDL2UC-Drwjnfy Solid Tumors: Results From the Uvrwf-lf-Stgqt Study - PubMed KDB Variant: Prwe-jw-dzkzylym Label: FDA Off Label FDA Approved?: Yes On label?: No 12/11/2024 7:57 PM CDT [facility] Trial Count 3 12/11/2024 7:57 PM CDT [facility] Tempus: Clinical Trial Match 1 Clinical Trial NCT ID: [id number] Clinical Trial Title: Evexomostat Plus PI3K or AKT Inhibitor and Fulvestrant in Women With a PI3K Alteration and HR+/Her2- Breast Cancer Clinical Trial URL: https://clinicaltrials .gov/ct2/show/HPU87233 619 Clinical Phase: Phase 1/Phase 2 Clinical Trial Matches: PIK3CA p.E542K mutation Clinical Trial Distance and Location: [place], [place] 12/11/2024 7:57 PM CDT [facility] Tempus: Clinical Trial Match 2 Clinical Trial NCT ID: [id number] Clinical Trial Title: Obbtq-mm-Pdigt Study of Mutant-selective PI3K Inhibitor, RLY-2608, As a Single Agent in Advanced Solid Tumor Patients and in Combination with Fulvestrant in Patients with Advanced Breast Cancer Clinical Trial URL: https://clinicaltrials .gov/ct2/show/FQL66085 432 Clinical Phase: Phase 1 Clinical Trial Matches: PIK3CA p.E542K mutation Clinical Trial Distance and Location: [address] [place], [place] 12/11/2024 7:57 PM CDT [facility] Tempus: Clinical Trial Match 3 Clinical Trial NCT ID: [id number] Clinical Trial Title: Gedatolisib Plus Fulvestrant With or Without Palbociclib vs Xvznndzn-tz-Vowr for the Treatment of Patients With Advanced or Metastatic HR+/HER2- Breast Cancer (GILL-1) Clinical Trial URL: https://clinicaltrials .gov/ct2/show/WNE45422 886 Clinical Phase: Phase 3 Clinical Trial Matches: PIK3CA p.E542K mutation Clinical Trial Distance and Location: [address] [place], [place] 12/11/2024 7:57 PM CDT [facility] xR Result 1 NEGATIVE Negative - This report is being issued to report the results of gene rearrangement and altered splicing analysis from RNA sequencing. No gene rearrangements nor reportable altered splicing events were identified from RNA sequencing. 12/11/2024 7:57 PM CDT [facility] Germline Variant Note No potential germline variants were found in the limited set of genes on which we report. 12/11/2024 7:57 PM CDT [facility] Tissue specimen (specimen) 11/27/2024 2:26 PM CDT 12/03/2024 10:17 AM CDT Narrative This result has genomic variants that were not included in this document. us James Swain MD MOLECULAR ORDERABLES Edited Res ult - Final [facility] [address], [address] [place] [address], [facility] [address] [facility], [address] [place] [address] from Last 3 Months Insurance [facility] [id number] [place] [id number]
--- OUTSIDE RECORDS SUMMARY | 2025-02-20 16:19 | XMS_ITS | Encounter Summary ---
Author Organization [facility] Address [address] [place] [address] Care Team Providers Care Lay Brother Name Role Phone Unavailable Primary Care Provider Unavailabl e Encounter Details Date Type Department Care Team (Late st Contact Info) Description 10/09/2024 Lab Requisition [facility] - Pathology Lab [address] [place] [address] Edgar Jacobson MD [address] [address] Illness, unspecified Social History Tobacco [...] CDT) Case Report Surgical Pathology Report Case: [id number] Authorizing Provider: Edgar Jacobson MD Collected: 10/07/2024 10:14 AM Ordering Location: [facility] - Received: 10/09/2024 04:51 PM Pathology Lab Pathologist: Jesusita Palmer MD Specimen: Breast Biopsy 10/10/2024 4:33 PM CDT [facility] Final Diagnosis Breast, left 10 o'clock 10 cm from nipple, biopsy (A): - Abundant detached atypical breast epithelium, see comment 10/10/2024 4:33 PM CDT [facility] at 1633 CDT Microscopic Description and Comment Sections show predominantly [...] best classified on excision. 10/10/2024 4:33 PM [facility] Clinical History The patient is a 73-year-old woman with a history of uterine and colon carcinoma. She now has a new spiculated 4 cm mass centered in the upper inner quadrant of the left breast. 10/10/2024 4:33 PM [facility] Materials Received Received are 13 slide(s) and 1 block labeled [id number] along with a copy of the outside pathology report. [place] [address]. All original materials are returned to the referring institution, along with a copy of our final report. 10/10/2024 4:33 PM [facility] Pathologist Location at [facility] 10/10/2024 4:33 PM [facility] Disclaimer The performance characteristics of all immunohistochemical and indirect immunofluorescence stains (if any) cited in this report were determined by the Histopathology Laboratory of [facility]. Some of these tests [...] the attending (teaching) pathologist. 10/10/2024 4:33 PM [facility] Embedded Images 10/10/2024 4:33 PM [facility] Pathology/Cytolo gy BIOPSY OF BREAST / Unknown 10/07/2024 10:14 AM CDT 10/09/2024 4:51 PM CDT us Edgar Jacobson MD LAB - PATHOLOGY/CYTOLOGY ORDERAB LES Final Result [facility] [address] [phone] documented in this encounter Visit Diagnoses Diagnosis Illness, unspecified documented in this encounter
--- OUTSIDE RECORDS SUMMARY | 2025-02-20 16:19 | XMS_ITS | Clinical Summary ---
Author Organization [facility] Address [address] [place] [address] Care Team Providers Care Industrial Economics Professor Name Role Phone Unavailable Primary Care Provider Unavailabl e Source Comments [facility] [employer],non-owned Affiliates and Associated Physician Practices is amultiple site organization consisting of ambulatory clinics and hospital sitesin [place], [place], [place] and [place]. This disclosure is being madepursuant to the Care Everywhere program and may not contain all information available regarding this patient. Last updated 18.[facility] [employer] Social History Tobacco Use Types Packs/Day Years [...] VACCINE ( - 2023-2 5 season) 2024 DEPRESSION SCREENING 07/31/2024 MEDICARE AWV CALENDAR YEAR 2024 Respiratory Syncytial Virus (RSV) Vaccine Pt: or over 60 yrs (1 - 1-dose 75+ series) 2024 INFLUENZA VACCINE (#1) 2025 HEPATITIS B VACCINE Aged Out No [...] on patient's age to complete this topic Insurance [facility] MANAGED MEDICARE ADV [facility] MANAGED MEDICARE ADV SELF PAY NO INSURANCE Member Subscriber Plan / Payer (Ef fective for All Dates) Name:Ana Evans Member ID:Not on file Relation to Subscriber:Not on file Name:ANA EVANS Subscriber ID:Not on file (Home) Address: [address] [place] [address] Payer ID:Not on file Group ID:Not on file Type:Self Pay Address: [place], [place]
== END 2025-02-20 16:18 | disposition home or self-care (01) ==
PROVIDERS: PCP Nurse Practitioner Family; Visit Provider Nurse Practitioner Family
DX: S40.812A Abrasion of left upper arm, initial encounter (principal)
CPT/HCPCS: 87070; 87075

== ENCOUNTER 2025-02-27 14:08 | Outpatient (CLI) | payer MEDICARE, SELFPAY ==
--- OUTSIDE RECORDS SUMMARY | 2025-02-27 14:11 | XMS_ITS | Encounter Summary ---
Author Organization [facility] Address [address] [place] [address] Care Team Providers Care Mold Making Supervisor Name Role Phone Unavailable Primary Care Provider Unavailabl e Reason for Referral * Radiology Services (Routine) - Authorized Specialty Diagnoses / Procedures Referred By Contac t Referred To Contact Diagnoses Osteoporosis, unspecified osteoporosis type, unspecified pathological fracture presence Procedures XR DEXA BONE DENSITY AXIAL 1 OR MORE SITES James Swain MD [address] [place] [address] Phone: tel: fax: Referral ID Status Reason Start Date Expiration Date V isits Requested Visits Authorized [id number] Authorized 02/27/2025 03/30/2026 1 1 Reason for Visit * Reason Comments Cancer Follow Up Encounter Details Date Type Department Care Team (Late st Contact Info) Description 02/27/2025 2:00 PM CDT Office Visit [facility] Oncology and Hematology - August [address] [place] [address] [address] [place] [address] James Swain MD [address] [place] [address] Osteoporosis, unspecified osteoporosis type, unspecified pathological fracture presence (Primary Dx) Social History Tobacco Use Types [...] Sign Reading Time Taken Comments Blood Pressure 132/78 02/27/2025 1:28 PM CDT Pulse 68 02/27/2025 1:28 PM CDT Temperature 36.3 C (97.3 F) 02/27/2025 1:28 PM CDT Respiratory Rate 16 02/27/2025 1:28 PM CDT Oxygen Saturation 96% 02/27/2025 1:28 PM CDT Inhaled Oxygen Concentration - - Weight 77.4 kg (170 lb 9.6 oz) 02/27/2025 1:28 P M CDT Height - - Body Mass Index 31.2 11/27/2024 1:23 PM CDT documented in this encounter Progress Notes * James Swain MD - 02/27/2025 1:51 PM CDT HEMATOLOGY / ONCOLOGY PROGRESS NOTE Patient Identification: Name: Ana Rico Age: 74 y.o. Sex: female : 1950 DIAGNOSIS T2 N1 M0 moderately differentiated invasive ductal carcinoma of the left breast status post left-sided lumpectomy and sentinel lymph node sampling on October 23, 2024. Tumor was 4 x 3.5 x 2.8 cm grade 2 ER ND positive and HER2/patricia negative. 0/1 lymph node positive. Oncotype DX recurrence score for node positive disease was 2. CURRENT TREATMENT Expectant TREATMENT HISTORY Radiation therapy to the left breast completed February 14, 2025. SUBJECTIVE Patient came into the office for follow-up visit after completion of radiation therapy treatment. She has been recovering well from the ration therapy treatment. Denies any chest pain or shortness ofbreath. No bleeding and bruising. No other new complaints. Review of system Constitutional: Patient did not mention fevers, sweats, fatigue, malaise, weight loss HEENT: Patient did not mention sinus congestion, hearing or vision problems Respiratory: Patient did not mention cough, dyspnea, wheeze Cardiovascular: Patient did not mention chest pain, exertional chest pressure/discomfort, nausea, syncope, shortness of breath GI: Patient did not mention constipation, diarrhea, dsyphagia, reflux symptoms, vomiting, melena : Patient did not mention dysuria, frequency, incontinence, urgency Integumentary system: no lymphadenopathy, sweats, flushing Musculoskeletal: Patient not mention: myalgia, arthralgia Neurological: Patient did not mention blurry or disturbed vision, numbness/weakness, dizziness Skin: No lumps, bumps or rashes. 12 point review of system was reviewed Objective: Vital signs in last 24 hours: As per nursing note Exam: HEENT: Atraumatic, external ears normal, nose normal, [...] deficits noted Psychiatric: Speech and behavior appropriate Bilateral breast examination showed postradiation and surgical changes in the left breast with someerythema and peeling of the skin without any masses and lymphadenopathy. Exam as above [facility]S @IMAGEIMP@ Assessment: Plan: There are no active problems to display for this patient. T2 N1 M0 moderately differentiated invasive ductal carcinoma of the left breast status post left-sided lumpectomy and sentinel lymph node sampling on October 23, 2024. Tumor was 4 x 3.5 x 2.8 cm grade 2 ER ND positive and HER2/patricia negative. 0/1 lymph node positive. Oncotype DX recurrence score for node positive disease was 2. Oncotype DX recurrence score for node positive disease came back at 2. Patient completed radiation therapy treatment to the left breast on February 14, 2025. There is no evidence of relapse of disease on my examination. I will start her on endocrine therapybased on the bone density testing. Repeat bilateral diagnostic mammogram will be done in 6 months. Bone health. Will order bone density testing as well as vitamin D level today. I will check CBC andCMP today. Hypertension. Stable. Follow-up phone visit in 2 weeks. 02/27/2025 James Swain MD documented in this encounter Plan of Treatment Upcoming Encounters Date Type Department Care Team (Late st Contact Info) Description 03/17/2025 4:30 PM CDT Telephone Check Up [facility] Oncology and Hematology - August [address] [facility] [address] [place] [address] James Swain MD [address] [place] [address] Scheduled Orders Name Type Priority Associated Diagnoses Orde r Schedule XR DEXA BONE DENSITY AXIAL 1 OR MORE SITES Imaging Routine Osteoporosis, unspecified osteoporosis type, unspecified pathological fracture presence 1 Occurrences starting 02/27/2025 until 02/27/2026 CBC WITH DIFFERENTIAL Lab Stat Osteoporosis, unspecified osteoporosis type, unspecified pathological fracture presence Expected: 02/27/2025, Expires: 02/27/2026 COMPREHENSIVE METABOLIC PANEL Lab Stat Osteoporosis, unspecified osteoporosis type, unspecified pathological fracture presence Expected: 02/27/2025, Expires: 02/27/2026 VITAMIN D 25 HYDROXY Lab Routine Osteoporosis, unspecified osteoporosis type, unspecified pathological fracture presence Ordered: 02/27/2025 documented as of this encounter Visit Diagnoses Diagnosis Osteoporosis, unspecified osteoporosis type, unspecified pathological fracture presence- Primary documented in this encounter
--- OUTSIDE RECORDS SUMMARY | 2025-02-27 14:11 | XMS_ITS | Encounter Summary ---
Author Organization [facility] Address [address] [place] [address] Care Team Providers Care Jig And Fixture Repairer Name Role Phone Unavailable Primary Care Provider Unavailabl e Encounter Details Date Type Department Care Team (Late st Contact Info) Description 10/09/2024 Lab Requisition [facility] - Pathology Lab [address] [place] [address] Edgar Jacobson MD [address] [address] Illness, unspecified Social History Tobacco [...] CDT) Case Report Surgical Pathology Report Case: [id number] Authorizing Provider: Edgar Jacobson MD Collected: 10/07/2024 10:14 AM Ordering Location: [facility] - Received: 10/09/2024 04:51 [...] These cells show monotony with diffuse ER, FL and GATA3 staining, and are negative for [...] best classified on excision. 10/10/2024 4:33 PM [facility] Clinical History The patient is a 73-year-old woman with a history of uterine and colon carcinoma. She now has a new spiculated 4 cm mass centered in the upper inner quadrant of the left breast. 10/10/2024 4:33 PM [facility] Materials Received Received are 13 slide(s) and 1 block labeled [id number] along with a copy of the outside pathology report. [place] [address]. All original materials are returned to the referring institution, along with a copy of our final report. 10/10/2024 4:33 PM [facility] Pathologist Location at [facility] 10/10/2024 4:33 PM [facility] Disclaimer The performance characteristics of all immunohistochemical and indirect immunofluorescence stains (if any) cited in this report were determined by the Histopathology Laboratory of [facility]. Some of these tests were developed [...] the attending (teaching) pathologist. 10/10/2024 4:33 PM [facility] Embedded Images 10/10/2024 4:33 PM [facility] Pathology/Cytolo gy BIOPSY OF BREAST / Unknown 10/07/2024 10:14 AM CDT 10/09/2024 4:51 PM CDT us Edgar Jacobson MD LAB - PATHOLOGY/CYTOLOGY ORDERAB LES Final Result [facility] [address] [phone] documented in this encounter Visit Diagnoses Diagnosis Illness, unspecified documented in this encounter
--- OUTSIDE RECORDS SUMMARY | 2025-02-27 14:11 | XMS_ITS | Clinical Summary ---
Author Organization [facility] Address [facility] [place] [address] Care Team Providers Care Stock Trader Name Role Phone Unavailable Primary Care Provider Unavailabl e Social History Tobacco Use Types Packs/Day Years Used Date Smoking Tobacco: Never Assessed Comments Unknown Sex and Gender Information Value Date Recorded Sex Assigned at Not on file Legal Sex Female 5:55 PM PHYSICIAN ASSISTANT CERTIFIED Gender Identity Not on file Sexual Orientation [...]
--- OUTSIDE RECORDS SUMMARY | 2025-02-27 14:11 | XMS_ITS | Clinical Summary ---
Author Organization [facility] Address [address] [place] [address] Care Team Providers Care Black Top Roller Name Role Phone Unavailable Primary Care Provider [...] LUTEIN ORAL) Take by mouth. Active Fish Oil-[place]-3 Fatty Acids 300-500 mg Capsule Take by mouth daily. Active Active Problems No known active problems Encounters Date Type Department Care Team Description 02/27/2025 2:00 PM CDT Office Visit [facility] Oncology and Hematology - August [address] [place] [address] James Swain MD Osteoporosis, unspecified osteoporosis type, unspecified pathological fracture presence (Primary Dx) 02/12/2025 External Device Data STL ABSTRACTION Provider, Abstract 02/11/2025 External Device Data STL ABSTRACTION Provider, Abstract 01/14/2025 External Device Data STL ABSTRACTION Provider, Abstract 12/24/2024 External Device Data STL ABSTRACTION Provider, Abstract 12/19/2024 External Device Data STL ABSTRACTION Provider, Abstract 12/18/2024 External Device Data STL ABSTRACTION Provider, Abstract 12/18/2024 External Device Data STL ABSTRACTION Provider, Abstract 12/17/2024 4:30 PM CDT Telephone Check Up [facility] Oncology [facility] Hematology [facility] [address] [place] [address] James Swain MD 12/17/2024 External Device Data STL ABSTRACTION Provider, Abstract 12/05/2024 Abstract [facility] Oncology [facility] Hematology [facility] [address] [place] [address] James Swain MD 12/03/2024 External Device Data STL ABSTRACTION Provider, Abstract 12/03/2024 External Device Data STL ABSTRACTION Provider, Abstract 12/03/2024 External Device Data STL ABSTRACTION Provider, Abstract 11/27/2024 1:30 PM CDT Office Visit [facility] Oncology [facility] Hematology [facility] [address] [place] [address] James Swain MD Malignant neoplasm of left [...] oz) 02/27/2025 1:28 P M CDT Height 157.5 cm (5' 2) 11/27/2024 1:23 PM CDT Body Mass Index 31.2 11/27/2024 1:23 PM CDT Plan of Treatment Upcoming Encounters Date Type Department Care Team (Late st Contact Info) Description 03/17/2025 4:30 PM CDT Telephone Check Up [facility] Oncology and Hematology - [place] [address] [facility] [address] [place] [address] James Swain MD [address] [facility] [address] [place] [address] Health Maintenance Due Date Last Done Comments DTAP/TDAP/TD VACCINES (1 - Tdap) 1968 COLORECTAL SCREENING 1994 Colorectal Cancer Screening 1994 FIT-DNA Q 3 years 1994 FIT/FOBT Q 1 year 1994 Flex Sig/CT Colonography Q 5 years 1994 PNEUMOCOCCAL VACCINE 50+ YEARS (1 of 1 - PCV) 12/15/19 00 ZOSTER VACCINE (1 of 2) 12/15/1999 OSTEOPOROSIS SCREENING 2014 [place] Prev entative Visit/Annual Wellness Visit 07/31/2024 RSV [...] AND XG+ CANCERNEXT-EXPANDED (12/09/2024 8:33 PM CDT) [facility] [email or web address] al-[email or web address]/p [id number] 6/reports/[id number] 12/09/2024 8:33 PM CDT [facility] [...] ORDERABLES Final Resu lt [facility] [address], [address] [place], [place] [address] [place] [address] [facility] [address], [address] [place] [address] * [facility] XF (12/05/2024 1:49 PM CDT) Reason for Study To identify mutations relevant to patient's cancer. 12/05/2024 1:49 PM CDT [facility] Genetic Diseases Assessed Cancer 12/05/2024 1:49 PM CDT [facility] Description of Ranges of DNA Sequences Examined 105 gene liquid biopsy 12/05/2024 1:49 PM CDT [facility] Overall Interpretation inconclusive 12/05/2024 1:49 PM CDT [facility] Portal [email or web address] l-[email or web address].[email or web address]/jake [email or web address] [id number] 12/05/2024 1:49 PM CDT [facility] Comment:[facility] Portal link Low Coverage Regions ERRFI1, JAK1, KMT2A, MSH3, SPOP, TERT, TSC2 12/05/2024 1:49 PM CDT [facility] Blood Tumor Mutational [place] Note bTMB cannot be calculated due to [...] ORDERABLES Final Resu lt Performing Organization Address City/[facility]/ZIP Co de Phone Number [facility] [address], [address] [place] [address], [place] [phone] [facility] [address], [address] [place] [address] * [facility] NORMAL BLOOD (11/27/2024 2:26 PM CDT) [facility] 11/27/2024 11:01 PM CDT [facility] Comment:See NGS Report for R esults. Blood specimen (specimen) 11/27/2024 2:26 PM CDT 11/27/2024 2:27 PM CDT us James Swain MD MOLECULAR ORDERABLES Final Resu lt Performing Organization Address City/[facility]/ZIP Co de Phone Number [facility] [address], [address] [place] [address], [place] [phone] [facility] [address] [facility] [address] [facility], [address] [place] [address] * [facility] DNA AND RNA SOLID TUMOR (11/27/2024 2:26 PM CDT) Reason for Study To identify somatic and [...] CDT [facility] [email or web address] ta l.[facility].[employer]/pat [id number] 12/11/2024 7:57 PM CDT [facility] Comment:[facility] [...] Status: Consensus Evidence ID: NCCN KDB Variant: Doix-oh-hkqhvwmg NCCN Associated Evidence: Consensus, Breast Cancer MSK Associated Evidence: MSK OncoKB, Level 1 Label: FDA On Label FDA Approved?: Yes On label?: Yes 12/11/2024 7:57 PM CDT [facility]: Potential Therapy 4 Gene: 8975^PIK3CA^HGNC Variant: p.E542K Match Type: snvIndel Match Type Description: PIK3CA p.E542K Agent: Alpelisib Drug Class: PI3K Inhibitor Tissue: Solid Tumors Association: Response Evidence Status: Clinical research Evidence ID: [id number] Evidence URL: https://www.ncbi.nlm.n ih.gov/pubmed/42757746 Evidence Title: Phosphatidylinositol 3-Kinase -Selective Inhibition With Alpelisib (WYJ861) in LOK2HY-Cpycupg Solid Tumors: Results From the Ajabi-zv-Ojzmb Study - PubMed KDB Variant: Asgc-zd-couvlusk Label: FDA Off Label FDA Approved?: Yes On label?: No 12/11/2024 7:57 PM CDT [facility] Trial Count 3 12/11/2024 7:57 PM CDT [facility]us: Clinical Trial Match 1 Clinical Trial NCT ID: [id number] Clinical Trial Title: Evexomostat Plus PI3K or AKT Inhibitor and Fulvestrant in Women With a PI3K Alteration and HR+/Her2- Breast Cancer Clinical Trial URL: https://clinicaltrials .gov/ct2/show/TGK80889 619 Clinical Phase: Phase 1/Phase 2 Clinical Trial Matches: PIK3CA p.E542K mutation Clinical Trial Distance and Location: [place], [place] 12/11/2024 7:57 PM CDT [facility]: Clinical Trial Match 2 Clinical Trial NCT ID: [id number] Clinical Trial Title: Qsyye-mp-Efbjg Study of Mutant-selective PI3K Inhibitor, RLY-2608, As a Single Agent in Advanced Solid Tumor Patients and in Combination with Fulvestrant in Patients with Advanced Breast Cancer Clinical Trial URL: https://clinicaltrials .gov/ct2/show/YZE63630 432 Clinical Phase: Phase 1 Clinical Trial Matches: PIK3CA p.E542K mutation Clinical Trial Distance and Location: [address] [place], [place] 12/11/2024 7:57 PM CDT [facility] Tempus: Clinical Trial Match 3 Clinical Trial NCT ID: [id number] Clinical Trial Title: Gedatolisib Plus Fulvestrant With or Without Palbociclib vs Xwtgmcdx-yo-Cjxk for the Treatment of Patients With Advanced or Metastatic HR+/HER2- Breast Cancer (GILL-1) Clinical Trial URL: https://clinicaltrials .gov/ct2/show/KNL35605 886 Clinical Phase: Phase 3 Clinical Trial Matches: PIK3CA p.E542K mutation Clinical Trial Distance and Location: [address] [place], [place] 12/11/2024 7:57 PM CDT [facility] [...] were not included in this document. us Jamse Swain MD MOLECULAR ORDERABLES Edited Res ult - Final [facility] [address], [address] [place] [address], [facility] [address], [address] [place] [address] from Last [address] [place] [address] [phone]
--- OUTSIDE RECORDS SUMMARY | 2025-02-27 14:11 | XMS_ITS | Clinical Summary ---
Author Organization [facility] Address [address] [place] [address] Care Team Providers Care Contact Lens Edge Buffer Name Role Phone Unavailable Primary Care Provider Unavailabl e Source Comments [facility] [employer],non-owned Affiliates and Associated Physician Practices is amultiple site organization consisting of ambulatory clinics and hospital sitesin [place], [place], [place] and [place]. This disclosure is being madepursuant to the Care Everywhere program and may not contain all information available regarding this patient. Last updated 18.[facility] [employer] Social History Tobacco Use Types Packs/Day Years [...] patient's age to complete this topic Insurance [facility] MANAGED MEDICARE ADV [facility] MANAGED MEDICARE ADV SELF PAY NO INSURANCE Member Subscriber Plan / Payer (Ef fective for All Dates) Name:Ana Evans Member ID:Not on file Relation to Subscriber:Not on file Name:ANA EVANS Subscriber ID:Not on file (Home) Address: [address] [place] [address] Payer ID:Not on file Group ID:Not on file Type:Self Pay Address: [place], [place]
[2025-02-27 14:33] LABS: Hematocrit 38.1 % (37.0-47.0); Hemoglobin 12.3 g/dL (12.0-15.0); Immature Granulocyte Percent A 0.6 % (0-0.5); Lymphocytes Absolute Auto 0.65 K/mm3 (0.9-3.2); Mean Corpuscular HGB Conc 32.3 g/dl (32-36); Mean Corpuscular Hemoglobin 29.7 pg (26-34); Mean Corpuscular Volume 92.0 fl (80-100); Nucleated Red Blood Cells Absolute Auto 0.000 K/mm3 (0.0-0.012); Nucleated Red Blood Cells Perc 0.0 % (0.0-0.2); Platelet Count Result 172 k/mm3 (150-375); Red Blood Count 4.14 M/mm3 (4.2-5.4); White Blood Count 3.6 K/mm3 (4.5-10.0)
[2025-02-27 16:28] LABS: Alanine Aminotransferase 17 U/L (6-35); Albumin Level 3.8 g/dL (3.5-5.1); Alkaline Phosphatase 77 U/L (38-126); Anion Gap 5 mmol/L (4-12); Aspartate Amino Transferase 36 U/L (14-36); Bilirubin,Total 0.9 mg/dL (0.2-1.3); Blood Urea Nitrogen 18 mg/dL (7-17); Calcium 8.7 mg/dL (8.4-10.2); Carbon Dioxide 28 mmol/L (22-30); Chloride 104 mmol/L (98-107); Estimated Glomerular Filt Rate 59; Glucose 96 mg/dL (65-110); Potassium 3.6 mmol/L (3.4-5.0); Sodium 137 mmol/L (137-145); Total Protein 6.8 g/dL (6.3-8.2)
== END 2025-02-27 14:09 | disposition home or self-care (01) ==
LOC: ANHLAB 14:10
PROVIDERS: PCP Nurse Practitioner Family; Visit Provider Internal Medicine Hematology & Oncology
DX: M81.0 Age-related osteoporosis without current pathological fracture (principal); E11.9 Type 2 diabetes mellitus without complications; C50.912 Malignant neoplasm of unspecified site of left female breast
CPT/HCPCS: 36415; 80053; 82306; 85025

== ENCOUNTER 2025-03-10 12:57 | Outpatient (CLI) | payer MEDICARE, SELFPAY ==
--- NOTE | ~2025-03-10 | DEXA_ITS ---
Bone Density Report Name: MICHELET EVANS Age: 74 Sex: Female Ethnicity: White Date of : 1950 Indication: postmenopausal; screening for osteoporosis; height loss; cancer; hysterectomy; Referring Provider: MACIEJ WHITE Study: Bone densitometry was performed. Exam Date: March 10, 2025 Accession number: [id number] Bone Density: Region BMD T-score Z-score Classification AP Spine(L1-L4) 1.073 0.2 2.6 Normal Femoral Neck (Left) 0.657 -1.7 0.4 Osteopenia Total Hip (Left) 0.951 0.1 1.9 Normal Femoral Neck (Right) 0.577 -2.4 -0.4 Osteopenia Total Hip (Right) 0.875 -0.5 1.2 Normal Total Hip Mean 0.913 -0.2 1.6 Normal World Health Organization criteria for BMD impression classify patients as: Normal (T-score at or above -1.0), Osteopenia (T-score between -1.0 and -2.5), or Osteoporosis (T-score at or below -2.5). 10-year Fracture Risk(1): Major Osteoporotic Fracture 14% Hip Fracture 4.2% Reported Risk Factors: [place] (), Neck BMD=0.577, BMI=32.8 (1) FRAX(R) Version 3.08. Fracture probability calculated for an untreated patient. Fracture probability may be lower if the patient has received treatment. Clinical Information Provided by Patient: Has the following medical conditions: Cancer, Hysterectomy Patient maximum height was 62.0 Menopause Age: 49 No regular weight bearing exercise Does not regularly consume dairy products Onset of menses at age 13 Number of children 2 Impression: The patient has low bone mass, based on the Right Femoral Neck T-score. The patient has an estimated ten-year risk of hip fracture of 4.2% and an estimated ten-year risk of major fracture of 14%, based on the WHO FRAX algorithm. Discussion: BONE DENSITY IS LOW AT ONE OR MORE SKELETAL SITES. THE PATIENT'S BMD AND CLINICAL RISK FACTORS CONTRIBUTE TO THIS PATIENT'S INCREASED RISK OF FRACTURE. This patient's lowest T-score is low at one or more skeletal sites. It meets the World Health Organization's (WHO) criteria for ?low bone mass? (T-score between -1.0 and -2.5). The patient's 10-year risk of hip fracture as calculated by FRAX exceeds the threshold where pharmacological therapy is recommended by the National Osteoporosis Foundation (NOF). However, all treatment decisions require clinical judgment and consideration of individual patient factors, including patient preferences, comorbidities, previous drug use, risk factors not captured in the FRAX model (e.g., frailty, falls, vitamin D deficiency, increased bone turnover, interval significant decline in bone density) and possible under or overestimation of fracture risk by FRAX. The patient should follow a healthful lifestyle (good nutrition with adequate calcium and vitamin D, and appropriate weight-bearing exercise). Follow-Up: Consider a repeat BMD and Vertebral Fracture Assessment (VFA) exam in 2 years or sooner if medically necessary, to reassess this patient's status. Reported by: BHARAT on 03/10/2025 1:40:00 PM. Reviewed, dictated and finalized at location A.
--- OUTSIDE RECORDS SUMMARY | 2025-03-10 13:18 | XMS_ITS | Clinical Summary ---
Author Organization [facility] Address [facility] [place] [address] Care Team Providers Care Fisher Lobster Name Role Phone Unavailable Primary Care Provider Unavailabl e Social History Tobacco Use Types Packs/Day Years Used Date Smoking Tobacco: Never Assessed Comments Unknown Sex and Gender Information Value Date Recorded Sex Assigned at Not on file Legal Sex Female 5:55 PM MUSKRAT TRAPPER Gender Identity Not on file Sexual Orientation [...]
--- OUTSIDE RECORDS SUMMARY | 2025-03-10 13:18 | XMS_ITS | Clinical Summary ---
Author Organization [facility] Address [address] [facility] [place] [place] [address] Care Team Providers Care Concrete Handler Name Role Phone Unavailable Primary Care Provider [...] LUTEIN ORAL) Take by mouth. Active Fish Oil-[place]-3 Fatty Acids 300-500 mg Capsule Take by mouth daily. Active Active Problems No known active problems Encounters Date Type Department Care Team Description 02/28/[address] [facility] Oncology and Hematology - August [address] [place] [address] James Swain MD 02/27/2025 2:00 PM CDT Office Visit [facility] Oncology and Hematology August [address] [place] [address] James Swain MD Osteoporosis, unspecified osteoporosis type, unspecified pathological fracture presence (Primary Dx) 02/27/[address] [facility] Oncology [facility] Hematology [facility] [address] [place] [address] James Swain MD 02/12/2025 External Device Data STL ABSTRACTION Provider, Abstract 02/11/2025 External Device Data STL ABSTRACTION Provider, Abstract 01/14/2025 External Device Data STL ABSTRACTION Provider, Abstract 12/24/2024 External Device Data STL ABSTRACTION Provider, Abstract 12/19/2024 External Device Data STL ABSTRACTION Provider, Abstract 12/18/2024 External Device Data STL ABSTRACTION Provider, Abstract 12/18/2024 External Device Data STL ABSTRACTION Provider, Abstract 12/17/2024 4:30 PM CDT Telephone Check Up [facility] Oncology and Hematology [facility] [address] [place] [address] James Swain MD 12/17/2024 External Device Data STL ABSTRACTION Provider, Abstract from Last 3 Months Family History Medical [...] 4:30 PM CDT Telephone Check Up [facility] Oncology and Hematology [facility] [address] [facility] [address] [place] [address] James Swain MD [address] [facility] [address] [place] [address] Health Maintenance Due Date Last [...] Procedure Name Priority Date/Time Associated Diagnosis Comments CBC WITH AUTODIFFERENTIAL Routine 02/27/2025 4:07 PM CDT VITAMIN D 25 HYDROXY Routine 02/27/2025 10:30 AM CDT COMPREHENSIVE METABOLIC PANEL Routine 02/27/2025 10:17 AM CDT [facility] XG CANCERNEXT AND XG+ CANCERNEXT-EXPANDED Routine 12/09/2024 8:33 PM CDT Malignant neoplasm of left breast in female, estrogen receptor positive, unspecified site of breast (CMS/HCC) from Last 3 Months Results * CBC WITH AUTODIFFERENTIAL (02/27/2025 4:07 PM CDT) Blood us James Swain MD HEMATOLOGY ORDERABLES Final Res ult * VITAMIN D 25 HYDROXY (02/27/2025 10:30 AM CDT) Blood us James Swain MD CHEMISTRY ORDERABLES Final Resu lt * COMPREHENSIVE METABOLIC PANEL (02/27/2025 10:17 AM CDT) Blood James Swain MD CHEMISTRY ORDERABLES Final Resu lt * [facility] XG CANCERNEXT AND XG+ CANCERNEXT-EXPANDED (12/09/2024 8:33 PM CDT) [facility] [email or web address] al-portal.[facility] [employer]/p [email or web address] 6/[email or web address]/[id number] 12/09/2024 8:33 PM CDT [facility] [...] ORDERABLES Final Resu lt [facility] [address] [facility], [address] [place] [address], [facility] [address], [address] [place] [phone] from Last [address] [place] [phone]
== END 2025-03-10 12:58 | disposition home or self-care (01) ==
PROVIDERS: PCP Nurse Practitioner Family; Visit Provider Internal Medicine Hematology & Oncology
DX: M81.0 Age-related osteoporosis without current pathological fracture (principal); M85.89 Other specified disorders of bone density and structure, multiple sites; Z13.820 Encounter for screening for osteoporosis
CPT/HCPCS: 77080